=== PATIENT | female | born 1970 ===

== ENCOUNTER 2020-06-30 08:11 | Outpatient (REF) | payer OTHER, SELFPAY ==
[2020-06-30 09:25] LABS: Alanine Aminotransferase 13 U/L (0-31); Albumin Level 4.2 g/dL (3.5-5.0); Alkaline Phosphatase 79 U/L (39-117); Anion Gap 10 (12-20); Aspartate Amino Transferase 13 U/L (5-31); Bilirubin Total 0.5 mg/dL (0.0-1.0); Blood Urea Nitrogen 10 mg/dL (9-16); Calcium 8.8 mg/dL (8.4-10.2); Carbon Dioxide 27 mmol/L (22-29); Chloride 105 mmol/L (96-108); Cholesterol 139 mg/dL; Estimated Glomerular Filt Rate > 60; Glucose Random 149 mg/dL (60-115); HDL Cholesterol 52 mg/dL; LDL Cholesterol Calculated 65 mg/dl; Potassium 4.3 mmol/l (3.3-5.1); Sodium 138 mmol/L (135-145); Total Protein 6.7 g/dL (6.5-8.0); Triglycerides 110 mg/dL
[2020-06-30 09:49] LABS: Estimated Average Glucose 194 mg/dL; Hemoglobin A1c % 8.4 %
== END 2020-06-30 08:12 | disposition home or self-care (01) ==
LOC: HO.LAB 08:11
PROVIDERS: PCP Internal Medicine; Visit Provider Internal Medicine
DX: E11.65 Type 2 diabetes mellitus with hyperglycemia (principal); E78.00 Pure hypercholesterolemia, unspecified; R80.8 Other proteinuria
CPT/HCPCS: 80053; 80061; 83036

== ENCOUNTER 2020-09-29 06:58 | Outpatient (REF) | payer OTHER, SELFPAY ==
[2020-09-29 08:14] LABS: Estimated Average Glucose 163 mg/dL; Hemoglobin A1c % 7.3 %
[2020-09-29 08:42] LABS: Alanine Aminotransferase 11 U/L (0-31); Albumin Level 4.2 g/dL (3.5-5.0); Alkaline Phosphatase 71 U/L (39-117); Anion Gap 12 (12-20); Aspartate Amino Transferase 13 U/L (5-31); Bilirubin Total 0.7 mg/dL (0.0-1.0); Blood Urea Nitrogen 9 mg/dL (9-16); Calcium 9.1 mg/dL (8.4-10.2); Carbon Dioxide 28 mmol/L (22-29); Chloride 104 mmol/L (96-108); Estimated Glomerular Filt Rate > 60; Glucose Fasting 104 mg/dL (60-99); Potassium 4.1 mmol/l (3.3-5.1); Sodium 140 mmol/L (135-145); Total Protein 6.7 g/dL (6.5-8.0)
== END 2020-09-29 06:59 | disposition home or self-care (01) ==
LOC: HO.LAB 06:58
PROVIDERS: PCP Internal Medicine; Visit Provider Internal Medicine
DX: E11.65 Type 2 diabetes mellitus with hyperglycemia (principal); E78.00 Pure hypercholesterolemia, unspecified; R80.8 Other proteinuria
CPT/HCPCS: 36415; 80053; 83036

== ENCOUNTER → 2020-11-04 14:18 | Outpatient (BNVA) | payer OTHER, SELFPAY | PROVIDERS: PCP Internal Medicine; Visit Provider Nurse Practitioner ==

== ENCOUNTER 2021-01-22 09:38 | Outpatient (REF) | payer OTHER, SELFPAY ==
[2021-01-22 11:34] LABS: Alanine Aminotransferase 18 U/L (0-31); Albumin Level 4.1 g/dL (3.5-5.0); Alkaline Phosphatase 83 U/L (39-117); Anion Gap 12 (12-20); Aspartate Amino Transferase 14 U/L (5-31); Bilirubin Total 0.8 mg/dL (0.0-1.0); Blood Urea Nitrogen 12 mg/dL (9-16); Calcium 9.4 mg/dL (8.4-10.2); Carbon Dioxide 27 mmol/L (22-29); Chloride 104 mmol/L (96-108); Estimated Glomerular Filt Rate > 60; Glucose Random 118 mg/dL (60-115); Potassium 4.4 mmol/L (3.3-5.1); Sodium 139 mmol/L (135-145); Total Protein 6.8 g/dL (6.5-8.0)
[2021-01-22 11:40] LABS: Estimated Average Glucose 166 mg/dL; Hemoglobin A1c % 7.4 %
== END 2021-01-22 09:39 | disposition home or self-care (01) ==
LOC: HO.LAB 09:38
PROVIDERS: PCP Internal Medicine; Visit Provider Internal Medicine
DX: E11.9 Type 2 diabetes mellitus without complications (principal); E78.00 Pure hypercholesterolemia, unspecified; R80.8 Other proteinuria
CPT/HCPCS: 36415; 80053; 83036

== ENCOUNTER 2021-04-26 07:27 | Outpatient (REF) | payer OTHER, SELFPAY ==
[2021-04-26 09:13] LABS: MANUAL DIFF FLAG NO
[2021-04-26 09:18] LABS: Basophils Percent Auto 0.5 % (0-2); Eosinophils Absolute Auto 0.2 X10*3/uL (0.0-0.4); Eosinophils Percent Auto 2.3 % (0-4); Hematocrit 44.9 % (37-47); Hemoglobin 14.8 g/dl (12.0-16.0); Imm Gran Abs Auto 0.03 X10*3/uL (0.00-0.03); Imm Gran Pct Auto 0.4 % (0.0-0.4); Lymphocytes Percent Auto 54.1 % (20-40); Mean Corpuscular Volume 93.9 fL (80-98); Mean Platelet Volume 11.6 fL (9.4-12.3); Monocytes Absolute Auto 0.7 X10*3/uL (0.1-1.2); Neutrophils Absolute Auto 2.4 X10*3/uL (2.0-8.3); Neutrophils Percent Auto 32.7 % (45-73); Platelet Count 182 X10*3/uL (160-400); Red Blood Count 4.78 X10*6/uL (4.20-5.50); Red Cell Distribution Width 14.1 % (11.0-16.0); White Blood Count 7.4 X10*3/uL (4.8-10.8)
[2021-04-26 09:32] LABS: Estimated Average Glucose 151 mg/dL; Hemoglobin A1c % 6.9 %
[2021-04-26 09:38] LABS: Alanine Aminotransferase 15 U/L (0-31); Albumin Level 4.2 g/dL (3.5-5.0); Alkaline Phosphatase 84 U/L (39-117); Anion Gap 11 (12-20); Aspartate Amino Transferase 11 U/L (5-31); Bilirubin Total 0.4 mg/dL (0.0-1.0); Blood Urea Nitrogen 10 mg/dL (9-16); Carbon Dioxide 28 mmol/L (22-29); Chloride 104 mmol/L (96-108); Cholesterol 196 mg/dL; Estimated Glomerular Filt Rate > 60; Glucose Random 149 mg/dL (60-115); HDL Cholesterol 59 mg/dL; LDL Cholesterol Calculated 104 mg/dl; Potassium 4.2 mmol/L (3.3-5.1); Sodium 139 mmol/L (135-145); Total Protein 6.8 g/dL (6.5-8.0); Triglycerides 169 mg/dL
[2021-04-26 09:52] LABS: Creatinine Urine 65.95 mg/dL; Microalbumin Urine < 5.0 mg/L
== END 2021-04-26 07:28 | disposition home or self-care (01) ==
LOC: HO.LAB 07:27
PROVIDERS: PCP Internal Medicine; Visit Provider Internal Medicine
DX: E11.9 Type 2 diabetes mellitus without complications (principal); E78.00 Pure hypercholesterolemia, unspecified; I10 Essential (primary) hypertension; L29.2 Pruritus vulvae
CPT/HCPCS: 36415; 80053; 80061; 82043; 83036; 85025

== ENCOUNTER 2021-05-27 12:57 | Outpatient (REF) | payer OTHER, SELFPAY ==
--- NOTE | ~2021-05-27 | MM_ITS ---
EXAMINATION: MM SCREENING DIGITAL BREAST TOMOSYNTHESIS, BILATERAL CLINICAL INFORMATION: Screening. Asymptomatic. The lifetime risk of breast cancer based on the Tyrer-Cuzick Model is 8.0%. COMPARISON: Mammography: April 01, 2020 and studies dating back to December 16, 2016 TECHNIQUE: Digital breast tomosynthesis is performed in both the craniocaudal and mediolateral oblique views along with computer-aided detection (CAD). Synthesized 2D images are generated from the tomosynthesis. FINDINGS: There are scattered areas of fibroglandular density (ACR BI-RADS breast composition Category b). There are no significant masses, abnormal calcifications, or other abnormalities. MM/MM tomosynthesis screening BI IMPRESSION: There are no significant changes from prior study. ASSESSMENT: BI-RADS 1: Negative RECOMMENDATION: Routine annual mammography screening. This patient's information was entered into a reminder system with a target due date for their next mammogram.
== END 2021-05-27 12:58 | disposition home or self-care (01) ==
LOC: HO.MAMMO 12:57
PROVIDERS: Visit Provider Internal Medicine
DX: Z12.31 Encounter for screening mammogram for malignant neoplasm of breast (principal)
CPT/HCPCS: 77063; 77067

== ENCOUNTER → 2021-06-10 13:45 | Outpatient (BNVA) | payer OTHER, SELFPAY | PROVIDERS: PCP Internal Medicine; Visit Provider Nurse Practitioner | DX: Z12.11 Encounter for screening for malignant neoplasm of colon (principal); K21.9 Gastro-esophageal reflux disease without esophagitis; K59.00 Constipation, unspecified; R13.10 Dysphagia, unspecified; Z98.890 Other specified postprocedural states | CPT/HCPCS: 99212 ==

== ENCOUNTER 2021-07-27 07:55 | Outpatient (REF) | payer OTHER, SELFPAY ==
[2021-07-27 09:04] LABS: Estimated Average Glucose 157 mg/dL; Hemoglobin A1c % 7.1 %
[2021-07-27 09:24] LABS: Alanine Aminotransferase 19 U/L (0-31); Albumin Level 3.8 g/dL (3.5-5.0); Alkaline Phosphatase 86 U/L (39-117); Anion Gap 10 (12-20); Aspartate Amino Transferase 13 U/L (5-31); Bilirubin Total 0.3 mg/dL (0.0-1.0); Blood Urea Nitrogen 9 mg/dL (9-16); Calcium 8.8 mg/dL (8.4-10.2); Carbon Dioxide 26 mmol/L (22-29); Chloride 108 mmol/L (96-108); Cholesterol 121 mg/dL; Estimated Glomerular Filt Rate > 60; Glucose Random 168 mg/dL (60-115); HDL Cholesterol 45 mg/dL; LDL Cholesterol Calculated 54 mg/dl; Sodium 140 mmol/L (135-145); Total Protein 6.1 g/dL (6.5-8.0); Triglycerides 110 mg/dL
== END 2021-07-27 07:56 | disposition home or self-care (01) ==
LOC: HO.LAB 07:55
PROVIDERS: PCP Internal Medicine; Visit Provider Internal Medicine
DX: Z00.00 Encounter for general adult medical examination without abnormal findings (principal); E11.9 Type 2 diabetes mellitus without complications; E78.00 Pure hypercholesterolemia, unspecified; F32.89 Other specified depressive episodes
CPT/HCPCS: 36415; 80053; 80061; 83036

== ENCOUNTER 2021-08-12 06:41 | Day surgery (SDC) | payer OTHER, SELFPAY ==
[2021-08-06 09:09] VITALS: BMI 34.8
--- NOTE | 2021-08-11 10:02 | HO.ANESPROP2 ---
Documented by User: Yael Gamez NP 08/11/21 10:04 HPI - Anesthesia Eval Consult details Narrative: 50yo F for Colonoscopy PMFSH Active Problems Active Problems: All Active Problems (Updated 08/06/21 @ 09:09 by Rebekah Ott RN) GERD (gastroesophageal reflux disease) (Acute) Dysphagia (Acute) Constipation (Acute) Colon cancer screening (Acute) Hx of colonoscopy (Acute) Past Medical History Medical History Diabetes Elevated cholesterol GERD (gastroesophageal reflux disease) History of COVID-19 HTN (hypertension) Family History Family History Father HTN (hypertension) Mother Hypothyroidism Surgical History Surgical History History of esophagogastroduodenoscopy (EGD) Hx of section Hx of colonoscopy Hx of tooth extraction Hx of tubal ligation Social History Social History Alcohol intake: current Alcohol intake frequency: does not drink Patient Tobacco Use Status: Current everyday Tobacco user Cigarettes Per Day: 7 Years Smoked: 35 Smoked in Last 30 Days: Yes Use of substances other than those prescribed or required for medical reasons: No Are you DNR?: No Advance Directives: No Advance Directives Information Provided: Yes Meds Allergies Allergy/AdvReac Type Severity Reaction Status Date / Time No Known Allergies Allergy Verified 06/10/21 13:57 [No Known Allergies*] Home Medications Medication Instructions Recorded Confirmed Last Taken Type empagliflozin 25 mg tablet 25 mg PO QAM 11/04/20 11/04/20 Unknown History glipizide 10 mg tablet, extended 10 mg PO DAILY 11/04/20 11/04/20 Unknown History release 24 hr lisinopril 10 mg tablet 10 mg PO DAILY 11/04/20 11/04/20 Unknown History metformin 1,000 mg tablet 1,000 mg PO BID 11/04/20 11/04/20 Unknown History sitagliptin 100 mg tablet 100 mg PO DAILY 11/04/20 11/04/20 Unknown History aspirin 81 mg tablet,delayed 81 mg PO DAILY 06/10/21 08/12/21 08/09/21 History release atorvastatin 40 mg tablet 80 mg PO BEDTIME tab 06/10/21 Unknown History Exam Exam Date and Time: August 11, 2021 1002 Height,Weight and Vital Signs: Height 5 ft 4 in Weight 92.079 kg Pertinent Lab Results Pertinent Lab Results: Laboratory Tests 04/26/21 07/27/21 07:37 08:07 WBC 7.4 Hgb 14.8 Hct 44.9 Plt Count 182 Sodium 140 Potassium 4.0 Chloride 108 Carbon Dioxide 26 BUN 9 Creatinine 0.59 Assessment and Plan Assessment Anesthesia Assessment: Chart Reviewed Documented by User: Elijah Sánchez 08/12/21 08:16 PMFSH Active Problems Active Problems: All Active Problems (Updated 08/06/21 @ 09:09 by Rebekah Ott RN) GERD (gastroesophageal reflux disease) (Acute) Dysphagia (Acute) Constipation (Acute) Colon cancer screening (Acute) Hx of colonoscopy (Acute) DM Past Medical History Medical History Diabetes Elevated cholesterol GERD (gastroesophageal reflux disease) History of COVID-19 HTN (hypertension) Functional capacity: independent ambulation Family History Family History Father HTN (hypertension) Mother Hypothyroidism Family history of problems with anesthesia: No Surgical History Surgical History History of esophagogastroduodenoscopy (EGD) Hx of section Hx of colonoscopy Hx of tooth extraction Hx of tubal ligation History of Problems with Anesthesia: No Social History Social History Alcohol intake: current Alcohol intake frequency: does not drink Patient Tobacco Use Status: Current everyday Tobacco user Cigarettes Per Day: 7 Years Smoked: 35 Smoked in Last 30 Days: Yes Use of substances other than those prescribed or required for medical reasons: No Are you DNR?: No Advance Directives: No Advance Directives Information Provided: Yes Meds Allergies Allergy/AdvReac Type Severity Reaction Status Date / Time No Known Allergies Allergy Verified 06/10/21 13:57 [No Known Allergies*] Home Medications Medication Instructions Recorded Confirmed Last Taken Type empagliflozin 25 mg tablet 25 mg PO QAM 11/04/20 11/04/20 Unknown History glipizide 10 mg tablet, extended 10 mg PO DAILY 11/04/20 11/04/20 Unknown History release 24 hr lisinopril 10 mg tablet 10 mg PO DAILY 11/04/20 11/04/20 Unknown History metformin 1,000 mg tablet 1,000 mg PO BID 11/04/20 11/04/20 Unknown History sitagliptin 100 mg tablet 100 mg PO DAILY 11/04/20 11/04/20 Unknown History aspirin 81 mg tablet,delayed 81 mg PO DAILY 06/10/21 08/12/21 08/09/21 History release atorvastatin 40 mg tablet 80 mg PO BEDTIME tab 06/10/21 Unknown History Exam Airway Mallampati Class: III TM Dist: >3cm Neck ROM: Full Denture: Upper and Lower Heart: rrr Lungs: bl breath sounds Assessment and Plan Final Anesthetic Review Family History of Problems with Anesthesia: No History of Problems with Anesthesia: No NPO: No ASA Class: II Final Preanesthetic Review: Meds/Allgs Chart Reviewed Patient Risk: Intermediate Procedure Risk: Intermediate Anesthetic Plan Anesthetic Plan: MAC: Disposition: Standard PACU
[2021-08-12 07:22] LABS: Glucose, Whole Blood 134 mg/dL (60-115)
[2021-08-12 07:23] VITALS: BMI 35.6
[2021-08-12] MEDS: Lactated Ringers 1,000 ML 100 ML IVCONT (07:30)
--- NOTE | 2021-08-12 08:39 | MHC.SHP ---
Pre-Procedural Eval Section A Date of Service: 08/12/21 Section B Chief Complaint: Screening Relevant Family History (Specify if Yes): No Relevant Social History: Tobacco Use Present Medications: see Short Stay Collaborative assessment Medical History: Significant History (Diabetes Elevated cholesterol GERD (gastroesophageal reflux disease) History of COVID-19 HTN (hypertension)) History of Previous Operations: Relevant previous surgery/procedure and date(s) (History of esophagogastroduodenoscopy (EGD) Hx of section Hx of colonoscopy Hx of tooth extraction Hx of tubal ligation) Allergies: Allergies Allergy/AdvReac Type Severity Reaction Status Date / Time No Known Allergies Allergy Verified 06/10/21 13:57 [No Known Allergies*] Review of Systems Sugical H&P ROS: Negative: Constitution, Cardiovascular, Respiratory, Neurological, Psychiatric, Hem-Onc, Allergic/Immunologic, Gastrointestinal, Genitourinary, Musculoskeletal, Integumentary, Endocrine and Eyes/Ears/Nose/Throat Exam Surgical H&P Exam: Normal: HEENT, Normal: Heart, Normal: Lungs, Normal: Extremities, Normal: Abdomen, Normal: Skin and Normal: Neurological Plan Diagnosis/Plan: Unchanged I have reviewed the history and physical and performed a pertinent physical examination on my patient. No changes have occurred unless specified.
--- NOTE | 2021-08-12 09:08 | PM.OP ---
Brief Operative Note Date of Service: 08/12/21 Pre-op diagnosis: screening colonoscopy--prior poor prep Post-op diagnosis: same Procedure: see op note Surgeon: Elmira Bell MD Anesthesia: MAC Was an Director Of Resource Development used for this Procedure?: No Estimated blood loss (mL): 0 Condition: stable Disposition: PACU
--- NOTE | 2021-08-12 09:08 | W.PM.OPN ---
Operative Note Operative Note Date of Service: 08/12/21 Narrative: Operative Information Procedure Description: Colonoscopy COLONOSCOPY Instrument: Olympus variable stiffness adult scope 190L Colonoscopy Monitoring: Vital signs and clinical assessment, continuous EKG monitoring, Pulse oximetry, Carbon Dioxide monitoring and blood pressure monitoring were done throughout the procedure. Colon withdrawal time was 14 minutes. Procedure: The patient was placed in the left lateral decubitis position and pre-procedure medications were administered. After a digital rectal examination of the ano-rectum, the video colonoscope was inserted into the rectum and advanced through the colon to the cecum/TI. The colonoscope was slowly withdrawn in a retrograde panoramic fashion and the colon mucosa was carefully examined including a retroflexed view of the rectum. Findings and interventions are described below. Procedure Difficulty: easy Findings: Terminal Ileum-normal Cecum:normal Ascending Colon: normal Transverse Colon -normal Descending Colon:normal Sigmoid Colon: normal Rectum: Retroflexion with small internal hemorrhoids, grade I Anorectum - normal Colon preparation: [place] Bowel Preparation Scale Right colon; borderline 2 after extensive washing and cleaning Transverse colon: 2 Left colon; borderline 2 (0 = Unprepared colon segment with mucosa not seen due to solid stool that cannot be cleared. 1 = Portion of mucosa of the colon segment seen, but other areas of the colon segment not well seen due to staining, residual stool and/or opaque liquid. 2 = Minor amount of residual staining, small fragments of stool and/or opaque liquid, but mucosa of colon segment seen well. 3 = Entire mucosa of colon segment seen well with no residual staining, small fragments of stool or opaque liquid) Impression and Post Procedure Diagnosis: internal hemorrhoids Plan: High fiber diet leaflet Avoid straining at stool, epsom salts and sitz bath, anusol supps or cream Repeat Colonoscopy in 3-5 years due to fair prep or earlier if clinically indicated Above findings were reviewed with the patient and relevant handouts were provided if indicated.
[2021-08-12 09:50] VITALS: BP 97/59; PULSE 69; RESP 15; TEMP 36.7; O2SAT 99
[2021-08-12 10:05] VITALS: BP 105/45; PULSE 68; RESP 16; TEMP 36.8; O2SAT 99
== END 2021-08-12 10:44 | disposition home or self-care (01) ==
PROVIDERS: PCP Internal Medicine; Visit Provider Internal Medicine Gastroenterology
PROC: 0DJD8ZZ Inspection of Lower Intestinal Tract, Via Natural or Artificial Opening Endoscopic (ICD-10-PCS; CPT 45378; principal; 2021-08-12 09:20)
DX: Z12.11 Encounter for screening for malignant neoplasm of colon (principal); K64.0 First degree hemorrhoids; K59.00 Constipation, unspecified; K21.9 Gastro-esophageal reflux disease without esophagitis; I10 Essential (primary) hypertension; E78.00 Pure hypercholesterolemia, unspecified; E11.9 Type 2 diabetes mellitus without complications; Z79.84 Long term (current) use of oral hypoglycemic drugs; Z79.82 Long term (current) use of aspirin; Z79.899 Other long term (current) drug therapy; Z86.16 Personal history of COVID-19; F17.210 Nicotine dependence, cigarettes, uncomplicated
CPT/HCPCS: 45378; 82947

== ENCOUNTER 2021-09-20 13:00 | Outpatient (RCR) | payer OTHER, SELFPAY | END 2021-11-01 11:47 | disposition home or self-care (01) | LOC: HO.PT 13:00 | PROVIDERS: PCP Internal Medicine; Visit Provider Internal Medicine | DX: M23.92 Unspecified internal derangement of left knee (principal) | CPT/HCPCS: 97110; 97161 ==

== ENCOUNTER → 2021-09-30 16:09 | Outpatient (BNVA) | payer OTHER, SELFPAY | PROVIDERS: PCP Internal Medicine; Visit Provider Nurse Practitioner | DX: K21.9 Gastro-esophageal reflux disease without esophagitis (principal); K59.00 Constipation, unspecified; R13.10 Dysphagia, unspecified | CPT/HCPCS: 99212 ==

== ENCOUNTER 2021-11-02 08:05 | Outpatient (REF) | payer OTHER, SELFPAY ==
[2021-11-02 08:42] LABS: Estimated Average Glucose 166 mg/dL; Hemoglobin A1c % 7.4 %
[2021-11-02 09:02] LABS: Alanine Aminotransferase 13 U/L (0-31); Albumin Level 3.8 g/dL (3.5-5.0); Alkaline Phosphatase 89 U/L (39-117); Anion Gap 10 (12-20); Aspartate Amino Transferase 12 U/L (5-31); Bilirubin Total 0.4 mg/dL (0.0-1.0); Blood Urea Nitrogen 8 mg/dL (9-16); Calcium 9.1 mg/dL (8.4-10.2); Carbon Dioxide 28 mmol/L (22-29); Chloride 105 mmol/L (96-108); Estimated Glomerular Filt Rate > 60; Glucose Random 155 mg/dL (60-115); Potassium 4.3 mmol/L (3.3-5.1); Sodium 139 mmol/L (135-145); Total Protein 6.2 g/dL (6.5-8.0)
== END 2021-11-02 08:06 | disposition home or self-care (01) ==
LOC: HO.LAB 08:05
PROVIDERS: PCP Internal Medicine; Visit Provider Internal Medicine
DX: E11.9 Type 2 diabetes mellitus without complications (principal); I10 Essential (primary) hypertension; M23.92 Unspecified internal derangement of left knee; Z53.20 Procedure and treatment not carried out because of patient's decision for unspecified reasons
CPT/HCPCS: 36415; 80053; 83036

== ENCOUNTER → 2021-12-28 11:42 | Outpatient (BNVA) | payer OTHER, SELFPAY | PROVIDERS: PCP Internal Medicine; Referring Provider Internal Medicine; Visit Provider Nurse Practitioner | DX: K59.00 Constipation, unspecified (principal); K21.9 Gastro-esophageal reflux disease without esophagitis | CPT/HCPCS: 99212 ==

== ENCOUNTER 2022-01-20 16:59 | Emergency (ER) | payer OTHER, SELFPAY ==
[2022-01-20 17:53] VITALS: BP 134/64; PULSE 70; RESP 16; TEMP 36.6; O2SAT 100; BMI 37.0
[2022-01-20 18:17] LABS: Appearance Urine CLEAR; Color Urine YELLOW; Glucose Urine UA >=1000 MG/DL (NEG); Leukocyte Esterase Urine NEG (NEG); Nitrite Urine NEG (NEG); Urine Blood NEG (NEG); Urine Ketones NEG (NEG); Urine Protein NEG (NEG-TRACE)
[2022-01-20 18:26] LABS: Bacteria Urine TRACE /LPF; RBC Urine 0 /HPF (0); Squamous Epithelial Cell Urine TRACE /LPF; WBC Urine 0 /HPF (0-4)
--- NOTE | 2022-01-20 18:28 | ED_ITS ---
HPI - Back Pain/Injury General Chief Complaint: Back Pain/Injury Stated Complaint: back pain Time Seen by Provider: 01/20/22 18:26 Source: patient Mode of arrival: ambulatory Limitations: no limitations History of Present Illness HPI Narrative: Patient presents to the emergency department for evaluation of diffuse lower back pain for 1 and half weeks. 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 Pain radiates to the midback, denies radiation to the legs. Pain is currently 8/10. She has tried taking Tylenol without significant improvement. Denies fevers, chills, burning with micturition, urinary frequency, urgency, hesitancy, bladder or bowel dysfunction, numbness or tingling of the perineum or bilateral legs. Denies any recent surgical procedures, any known immune compromising conditions, personal history of cancer, or IV drug usage. MD elicited complaint: back pain Onset (ago): week(s) Timing: intermittent Severity: severe Pain scale (0-10): 8 Similar Symptoms Previously: No Quality: aching and spasming Location: lumbar spine Exacerbating factors: movement Associated symptoms: denies other symptoms Treatments prior to arrival: acetaminophen Related Data Home Medications Medication Instructions Recorded Confirmed empagliflozin 25 mg tablet 25 mg PO QAM 11/04/20 11/04/20 glipizide 10 mg tablet, extended 10 mg PO DAILY 11/04/20 11/04/20 release 24 hr lisinopril 10 mg tablet 10 mg PO DAILY 11/04/20 11/04/20 metformin 1,000 mg tablet 1,000 mg PO BID 11/04/20 11/04/20 sitagliptin 100 mg tablet 100 mg PO DAILY 11/04/20 11/04/20 aspirin 81 mg tablet,delayed 81 mg PO DAILY 06/10/21 08/12/21 release atorvastatin 40 mg tablet 80 mg PO BEDTIME tab 06/10/21 Previous Rx's Medication Instructions Recorded magnesium citrate 150 ml PO ONCE #300 ml 06/10/21 peg 3350-electrolytes 236 240 ml PO Q10M 1 Days #4000 ml 06/10/21 gram-22.74 gram-6.74 gram-5.86 gram solution (Golytely) sennosides 8.6 mg capsule (senna) 17.2 mg PO BEDTIME 30 Days #60 cap 09/30/21 famotidine 40 mg tablet 40 mg PO BID #180 tab 12/09/21 bisacodyl 5 mg tablet,delayed 10 mg PO BEDTIME 30 Days #60 tab 12/28/21 release (Dulcolax (bisacodyl)) cyclobenzaprine 5 mg tablet 5 mg PO TID PRN #14 tab 01/20/22 naproxen 500 mg tablet 500 mg PO BID PRN #10 tab 01/20/22 Allergies Allergy/AdvReac Type Severity Reaction Status Date / Time No Known Allergies Allergy Verified 12/28/21 11:54 [No Known Allergies*] Review of Systems Review of Systems: Constitutional: No weight loss, fever, chills, weakness or fatigue. HEENT: No visual loss, blurred vision, double vision. No hearing loss, sneezing, congestion, runny nose or sore throat. Skin: No rash or itching. Cardiovascular: No chest pain, chest pressure or chest discomfort. No palpitations or pedal edema. Respiratory: No shortness of breath, cough or sputum production. Gastrointestinal: No anorexia, nausea, vomiting or diarrhea. No abdominal pain or blood in stool. Genitourinary: No burning micturition. No urinary frequency or incontinence. Neurologic: No headache, dizziness, syncope, unilateral weakness, ataxia, numbness or tingling in the extremities. No change in bowel or bladder control. Musculoskeletal: + Back pain as noted in HPI. No joint pain or stiffness. Endocrine: No polyuria or polydipsia. Yes all other systems are reviewed and are negative PMFSH Past Medical History Attestation statement: The following information was validated with the patient. Source: old records reviewed Medical History Diabetes Elevated cholesterol GERD (gastroesophageal reflux disease) History of COVID-19 HTN (hypertension) Surgical History History of esophagogastroduodenoscopy (EGD) Hx of section Hx of colonoscopy Hx of tooth extraction Hx of tubal ligation Family History Family History Father HTN (hypertension) Mother Hypothyroidism Social History Social History Alcohol intake: current Alcohol intake frequency: does not drink Patient Tobacco Use Status: Current everyday Tobacco user Cigarettes Per Day: 7 Years Smoked: 35 Advance Directives: No Advance Directives Information Provided: Yes Physical Exam Vital Signs: Vital Signs: Last Vital Signs Temp 98 F 01/20/22 17:53 Pulse 70 01/20/22 17:53 Resp 16 01/20/22 17:53 BP 134/64 01/20/22 17:53 Pulse Ox 100 01/20/22 17:53 BMI result Body Mass Index 37.0 Vital signs have been reviewed as normal and appeared to be correct. Blood pressure normal.? Heart rate normal.? Respiration rate normal. Temperature normal.? Oxygen saturation normal. Appearance: Alert.?Oriented to person, place and time. No acute distress.?Normal affect. Eyes: Pupils equal, round and reactive to light.? ENT: Pharynx normal.?? Neck: Normal inspection.? Neck supple.?? CVS: Heart sounds normal. Normal heart rate and rhythm.? Pulses normal; bilateral radial pulses 2+, bilateral posterior tibial/dorsalis pedis pulses 2+.? Respiratory: No respiratory distress.? Lung sounds clear to auscultation bilaterally?? Abdomen: Soft and non-tender. Normoactive bowel sounds. No pulsatile mass.?? Skin: Skin warm and dry.? Normal skin color.? Normal skin turgor.?? Extremities: No lower extremity edema.? No calf ttp? Back: + moderateparaspinal muscular tenderness from lumbar region to coccyx. No CVA tenderness. No midline spinal tenderness, step-off's, or deformity. Full ROM intact in bilateral lower extremities. Straight leg test positive on left and positive on right. No rashes, lesions, areas of induration or fluctuance, or signs of infection noted. Neuro: Moves all extremities spontaneously. 5/5 strength in hip extension/flexion, abduction, adduction. Sensation to light touch intact bilaterally. Patellar and Achilles reflex 2+ bilaterally. No ataxia, gait normal and steady.. No focal neuro deficits. Course Course Course Narrative: Patient is a 51-year-old female with a past medical history of type 2 diabetes, hypercholesterolemia, GERD, hypertension presenting to emergency department for evaluation of acute lower back pain. Urinalysis without signs of infection or microscopic hematuria. Pain is most consistent with muscular pain, although cannot completely exclude herniated disc. On neurological exam there are no de ficits. Not consistent with spinal fracture, spinal infection, epidural abscess, AAA, epidural abscess, or dissection. No high risk past medical history including incontinence, fever, immunosuppression, recent surgery or lumbar puncture, coagulopathy, significant trauma, recent unintentional weight loss, pulsatile mass, history of cancer, history of TB, history of IV drug use that would warrant MRI or CT. Not consistent with ectopic , pyelonephritis, urinary tract infection, renal calculi, pelvic infection, appendicitis, diverticulitis. On exam no concern for cauda equina syndrome. No imaging is currently indicated at this time. Patient received ketorolac and Flexeril while in the emergency department, had a ride home. Discussed plan of care for discharge home with new prescription for naproxen, and Flexeril, advised gentle stretching exercises of the low back, discussed reasons to return back to the emergency department, and follow-up with primary care provider. patient agreed with plan, ambulatory with steady gait in the emergency department, discharged home stable condition. MDM - Back Pain/Injury Medical Records Attestation: I reviewed the patient's medical records. Lab Data Attestation: I reviewed the patient's lab results. Labs: Lab Results 01/20/22 Range/Units 18:09 Urine Color YELLOW Urine Appearance CLEAR Urine pH 7.0 (5.0-8.0) Ur Specific [place] 1.020 (1.005-1.025) Urine Protein NEG (NEG-TRACE) MG/DL Urine Glucose (UA) >=1000 H (NEG) MG/DL Urine Ketones NEG (NEG) MG/DL Urine Blood NEG (NEG) Urine Nitrite NEG (NEG) Ur Leukocyte Esterase NEG (NEG) Urine RBC 0 (0) /HPF Urine WBC 0 (0-4) /HPF Ur Squamous Epith Cells TRACE /LPF Urine Bacteria TRACE /LPF Discharge Plan Discharge Clinical Impression: Strain of lumbar region Patient Disposition: Home, Self-Care Instructions: Low Back Strain (ED), Lower Back Exercises (ED) Additional Instructions: Please take naproxen twice daily for pain, do not take additional [id number] NSAID such as a ibuprofen/Motrin or Aleve. If the naproxen is not alleviating your pain you may trial the use of Flexeril, this is a muscle relaxer that may make you drowsy, you should not drive/operate machinery/drink alcohol for 8 hours after taking this medication. Please contact your primary care provider to schedule a follow-up visit within 1 week. Return to emergency department with any new or worsening symptoms or concerns. Prescriptions: New cyclobenzaprine 5 mg tablet 5 mg PO TID PRN (Reason: muscle spasm) Qty: 14 0RF naproxen 500 mg tablet 500 mg PO BID PRN (Reason: pain) Qty: 10 0RF No Action famotidine 40 mg tablet 40 mg PO BID Qty: 180 2RF Januvia 100 mg tablet 100 mg PO DAILY 0RF metformin 1,000 mg tablet 1,000 mg PO BID 0RF glipizide 10 mg tablet extended release 24hr 10 mg PO DAILY 0RF Jardiance 25 mg tablet 25 mg PO QAM 0RF lisinopril 10 mg tablet 10 mg PO DAILY 0RF atorvastatin 40 mg tablet 80 mg PO BEDTIME 0RF aspirin 81 mg tablet,delayed release (DR/EC) 81 mg PO DAILY 0RF magnesium citrate Solution 150 ml PO ONCE Qty: 300 0RF peg 3350-electrolytes [Golytely] 236-22.74-6.74 -5.86 gram recon soln 240 ml PO Q10M 1 Days Qty: 4000 0RF Rx Instructions: until fecal effluent is clear; do not exceed a total volume of 2,000 mL senna 8.6 mg capsule 17.2 mg PO BEDTIME 30 Days Qty: 60 3RF bisacodyl [Dulcolax (bisacodyl)] 5 mg tablet,delayed release (DR/EC) 10 mg PO BEDTIME 30 Days Qty: 60 6RF Interventions: ED Discharge Assessment Last Done: 01/20/22 20:42 Discharge Date/Time: 01/20/22 20:46
[2022-01-20] MEDS: Cyclobenzaprine HCl 5 MG TABLET PO (19:58)
[2022-01-20] MEDS: Ketorolac Tromethamine 60 MG/2 ML VIAL IM (19:59)
== END 2022-01-20 20:46 | disposition home or self-care (01) ==
PROVIDERS: Emergency Provider Internal Medicine; PCP Internal Medicine
DX: M54.50 Low back pain, unspecified (principal); F17.210 Nicotine dependence, cigarettes, uncomplicated; Z71.6 Tobacco abuse counseling; Z79.899 Other long term (current) drug therapy
CPT/HCPCS: 81001; 96372; 99283; 99284; J1885

== ENCOUNTER 2022-02-04 09:03 | Outpatient (REF) | payer OTHER, SELFPAY ==
[2022-02-04 10:05] LABS: Estimated Average Glucose 174 mg/dL; Hemoglobin A1c % 7.7 %
[2022-02-04 10:23] LABS: Alanine Aminotransferase 26 U/L (0-31); Albumin Level 4.1 g/dL (3.5-5.0); Alkaline Phosphatase 101 U/L (39-117); Anion Gap 12 (12-20); Aspartate Amino Transferase 18 U/L (5-31); Bilirubin Total 0.4 mg/dL (0.0-1.0); Blood Urea Nitrogen 9 mg/dL (9-16); Calcium 9.3 mg/dL (8.4-10.2); Carbon Dioxide 26 mmol/L (22-29); Chloride 105 mmol/L (96-108); Estimated Glomerular Filt Rate > 60; Glucose Random 170 mg/dL (60-115); Potassium 4.7 mmol/L (3.3-5.1); Sodium 138 mmol/L (135-145); Total Protein 6.9 g/dL (6.5-8.0)
== END 2022-02-04 09:04 | disposition home or self-care (01) ==
LOC: HO.LAB 09:03
PROVIDERS: PCP Internal Medicine; Visit Provider Internal Medicine
DX: E11.65 Type 2 diabetes mellitus with hyperglycemia (principal); E78.00 Pure hypercholesterolemia, unspecified; I10 Essential (primary) hypertension
CPT/HCPCS: 36415; 80053; 83036

== ENCOUNTER 2022-05-10 08:12 | Outpatient (REF) | payer OTHER, SELFPAY ==
[2022-05-10 08:22] LABS: MANUAL DIFF FLAG NO
[2022-05-10 08:50] LABS: Basophils Percent Auto 0.4 % (0-2); Eosinophils Absolute Auto 0.2 X10*3/uL (0.0-0.4); Eosinophils Percent Auto 2.3 % (0-4); Hematocrit 46.2 % (37.0-47.0); Hemoglobin 15.1 g/dl (12.0-16.0); Imm Gran Abs Auto 0.04 X10*3/uL (0.00-0.03); Imm Gran Pct Auto 0.5 % (0.0-0.4); Lymphocytes Absolute Auto 3.5 X10*3/uL (1.2-4.9); Lymphocytes Percent Auto 42.9 % (20-40); Mean Corpuscular HGB Conc 32.7 g/dl (31.0-35.0); Mean Corpuscular Hemoglobin 30.1 pg (27.0-33.0); Mean Corpuscular Volume 92.2 fL (80.0-98.0); Mean Platelet Volume 11.5 fL (9.4-12.3); Monocytes Absolute Auto 0.7 X10*3/uL (0.1-1.2); Monocytes Percent Auto 8.5 % (2-11); Neutrophils Absolute Auto 3.7 x10*3/uL (2.0-8.3); Neutrophils Percent Auto 45.4 % (45-73); Platelet Count 163 X10*3/uL (160-400); Red Blood Count 5.01 X10*6/uL (4.20-5.50); Red Cell Distribution Width 13.9 % (11.0-16.0); White Blood Count 8.1 X10*3/uL (4.8-10.8)
[2022-05-10 09:21] LABS: Microalbumin Urine < 5.0 mg/L
[2022-05-10 09:24] LABS: Estimated Average Glucose 197 mg/dL; Hemoglobin A1c % 8.5 %
[2022-05-10 09:38] LABS: Alanine Aminotransferase 19 U/L (0-31); Albumin Level 4.2 g/dL (3.5-5.0); Alkaline Phosphatase 106 U/L (39-117); Anion Gap 16 (12-20); Aspartate Amino Transferase 15 U/L (5-31); Bilirubin Total 0.5 mg/dL (0.0-1.0); Blood Urea Nitrogen 9 mg/dL (9-16); Calcium 9.4 mg/dL (8.4-10.2); Carbon Dioxide 25 mmol/L (22-29); Chloride 103 mmol/L (96-108); Cholesterol 131 mg/dL; Estimated Glomerular Filt Rate > 60; Glucose Random 185 mg/dL (60-115); HDL Cholesterol 56 mg/dL; LDL Cholesterol Calculated 56 mg/dl; Potassium 3.9 mmol/L (3.3-5.1); Sodium 140 mmol/L (135-145); Total Protein 6.9 g/dL (6.5-8.0); Triglycerides 95 mg/dL
[2022-05-10 09:40] LABS: Thyroid Stimulating Hormone 1.85 uIU/mL (0.32-4.0)
[2022-05-10 09:54] LABS: Vitamin B12 280 pg/mL (200-900)
== END 2022-05-10 08:13 | disposition home or self-care (01) ==
LOC: HO.LAB 08:12
PROVIDERS: PCP Internal Medicine; Visit Provider Internal Medicine
DX: E11.9 Type 2 diabetes mellitus without complications (principal); E78.00 Pure hypercholesterolemia, unspecified; I10 Essential (primary) hypertension; L84 Corns and callosities
CPT/HCPCS: 36415; 80053; 80061; 82043; 82607; 83036; 84443; 85025

== ENCOUNTER 2022-06-28 11:20 | Outpatient (REF) | payer OTHER, SELFPAY ==
--- NOTE | ~2022-06-28 | MM_ITS ---
EXAMINATION: MM SCREENING DIGITAL BREAST TOMOSYNTHESIS, BILATERAL CLINICAL INFORMATION: Screening. Asymptomatic. The lifetime risk of breast cancer based on the Tyrer-Cuzick Model is 8.8%. COMPARISON: Mammography: May 27, 2021 and studies dating back to October 28, 2015 TECHNIQUE: Digital breast tomosynthesis is performed in both the craniocaudal and mediolateral oblique views along with computer-aided detection (CAD). Synthesized 2D images are generated from the tomosynthesis. FINDINGS: The breasts are almost entirely fatty (ACR BI-RADS breast composition Category a). There are no significant masses, abnormal calcifications, or other abnormalities. MM/MM tomosynthesis screening BI IMPRESSION: No significant changes from prior exam. ASSESSMENT: BI-RADS 1: Negative RECOMMENDATION: Routine annual mammography screening. This patient's information was entered into a reminder system with a target due date for their next mammogram.
== END 2022-06-28 11:21 | disposition home or self-care (01) ==
LOC: HO.MAMMO 11:20
PROVIDERS: PCP Internal Medicine; Visit Provider Internal Medicine
DX: Z12.31 Encounter for screening mammogram for malignant neoplasm of breast (principal)
CPT/HCPCS: 77063; 77067

== ENCOUNTER → 2022-07-19 11:19 | Outpatient (BNVA) | payer OTHER, SELFPAY | PROVIDERS: PCP Internal Medicine; Visit Provider Nurse Practitioner | DX: K21.9 Gastro-esophageal reflux disease without esophagitis (principal); K59.00 Constipation, unspecified | CPT/HCPCS: 99212 ==

== ENCOUNTER 2022-09-06 14:33 | Emergency (ER) | payer OTHER, SELFPAY ==
--- NOTE | ~2022-09-06 | XR_ITS ---
EXAMINATION: RIGHT SHOULDER, RIGHT HUMERUS CLINICAL INFORMATION: Arm pain COMPARISON: None TECHNIQUE: 2 views right humerus, 3 views right shoulder FINDINGS: There is evidence of an old healed right clavicular fracture. Some subchondral cyst formation is seen in the region of the greater tuberosity which can be seen with rotator cuff disease. A bone island is present in the right humeral head. The glenohumeral joint appears normal. Visualized elbow joint appears normal. No fractures or dislocations. XR/XR shoulder RT min 2V IMPRESSION: 1. No evidence of an acute osseous injury. 2. Old healed right clavicular fracture. 3. Question of rotator cuff disease.
--- NOTE | ~2022-09-06 | XR_ITS ---
EXAMINATION: RIGHT SHOULDER, RIGHT HUMERUS CLINICAL INFORMATION: Arm pain COMPARISON: None TECHNIQUE: 2 views right humerus, 3 views right shoulder FINDINGS: There is evidence of an old healed right clavicular fracture. Some subchondral cyst formation is seen in the region of the greater tuberosity which can be seen with rotator cuff disease. A bone island is present in the right humeral head. The glenohumeral joint appears normal. Visualized elbow joint appears normal. No fractures or dislocations. XR/XR humerus RT IMPRESSION: 1. No evidence of an acute osseous injury. 2. Old healed right clavicular fracture. 3. Question of rotator cuff disease.
--- NOTE | 2022-09-06 16:34 | ED_ITS ---
HPI - Extremity Injury (Upper) General Chief Complaint: Extremity Problem <SHAHID Tobin Last Filed: 09/06/22 16:40> Stated Complaint: R arm pain <SHAHID Tobin Last Filed: 09/06/22 16:40> Time Seen by Provider: 09/06/22 18:44 <SHAHID Tobin Last Filed: 09/06/22 16:40> Source: patient <SHAHID Castillo Last Filed: 09/06/22 20:36> Mode of arrival: ambulatory <SHAHID Castillo Last Filed: 09/06/22 20:36> Limitations: no limitations <SHAHID Castillo Last Filed: 09/06/22 20:36> History of Present Illness HPI narrative: This is a 51-year-old female history of GERD, dysphagia, DM, HTN, constipation presenting to the emergency department with complaints of 3 days of neck pain that radiates into her right shoulder, patient tells me she feels like her neck is stiff, and when she moves her neck she gets a radiating pain into her right shoulder and right arm, with intermittent tingling. Patient denies any trauma to the neck. She tells me she may have slept wrong on it. She tells me it is very uncomfortable. She tells me she has been taking acetaminophen and using lidocaine patches with little to no relief. Denies chest pain, shortness of breath, nausea, vomiting, abdominal pain, back pain, lower extremity swelli ng, headache, vision changes, dizziness. <SHAHID Castillo Last Filed: 09/06/22 20:36> Related Data Home Medications: Home Medications Medication Instructions Recorded Confirmed empagliflozin 25 mg tablet 25 mg PO QAM 11/04/20 11/04/20 lisinopril 10 mg tablet 10 mg PO DAILY 11/04/20 11/04/20 metformin 1,000 mg tablet 1,000 mg PO BID 11/04/20 11/04/20 sitagliptin phosphate 100 mg tablet 100 mg PO DAILY 11/04/20 11/04/20 aspirin 81 mg tablet,delayed 81 mg PO DAILY 06/10/21 08/12/21 release atorvastatin 80 mg tablet 80 mg PO BEDTIME 07/19/22 glipizide 5 mg tablet, extended 5 mg PO DAILY 07/19/22 release 24 hr Previous Rx's Medication Instructions Recorded magnesium citrate 150 ml PO ONCE #300 mL 06/10/21 cyclobenzaprine 5 mg tablet 5 mg PO TID PRN muscle spasm #14 01/20/22 tabs naproxen 500 mg tablet 500 mg PO BID PRN pain #10 tabs 01/20/22 bisacodyl 5 mg tablet,delayed 10 mg PO BEDTIME 30 days #60 tabs 07/19/22 release (Dulcolax (bisacodyl)) famotidine 40 mg tablet 40 mg PO BID #180 tabs 07/19/22 diazepam 2 mg tablet (Valium) 2 mg PO BID PRN muscle spasm #8 09/06/22 tabs lidocaine 5 % topical patch 1 patch topical DAILY PRN pain #15 09/06/22 ea <SHAHID Tobin Last Filed: 09/06/22 16:40> Allergies/Adverse Reactions: Allergies Allergy/AdvReac Type Severity Reaction Status Date / Time No Known Allergies Allergy Verified 07/19/22 11:34 [No Known Allergies*] <SHAHID Tobin Last Filed: 09/06/22 16:40> Review of Systems Review of Systems: Constitutional : No Weight loss, No Fever, No Chills, No Fatigue, No Malaise ENT/Mouth : No sore throat, No Rhinorrhea Eyes: No Eye Pain, No Swelling, No Redness Cardiovascular : No Chest Pain, No SOB, No Dyspnea on Exertion, No Orthopnea, No Edema, No Palpitations Respiratory : No Cough, No Sputum, No Wheezing Gastrointestinal : No Nausea, No Vomiting, No Diarrhea, No Constipation, No abdominal Pain, No Hematochezia, No Melena Genitourinary : No Dysuria, No Urinary Frequency, No Hematuria, Musculoskeletal : + joint pain, No Myalgias, No Joint Swelling Skin : No Skin Lesions, No rash Neuro : No Weakness, No Numbness, No Dizziness, No Headache Psych : No Anxiety/Panic, No Depression All other systems reviewed and are negative <SHAHID Castillo Last Filed: 09/06/22 20:36> Yes all other systems are reviewed and are negative <SHAHID Castillo Last Filed: 09/06/22 20:36> [facility] Past Medical History Attestation statement: The following information was validated with the patient. <SHAHID Castillo - Last Filed: 09/06/22 20:36> Source: old records reviewed and nursing notes reviewed <SHAHID Castillo - Last Filed: 09/06/22 20:36> Medical History: Medical History (Updated 09/06/22 @ 19:44 by SHAHID Castillo) Diabetes Elevated cholesterol GERD (gastroesophageal reflux disease) History of COVID-19 HTN (hypertension) <SHAHID Tobin - Last Filed: 09/06/22 16:40> Surgical History: Surgical History History of esophagogastroduodenoscopy (EGD) Hx of section Hx of colonoscopy Hx of tooth extraction Hx of tubal ligation <SHAHID Tobin - Last Filed: 09/06/22 16:40> Family History Family History: Family History Father HTN (hypertension) Mother Hypothyroidism <SHAHID Tobin - Last Filed: 09/06/22 16:40> Social History Social History: Social History Alcohol intake: never Patient Tobacco Use Status: Current everyday Tobacco user Cigarettes Per Day: 7 Years Smoked: 35 Smoked in Last 30 Days: Yes Use of substances other than those prescribed or required for medical reasons: No Advance Directives: No Advance Directives Information Provided: No Patient : No <SHAHID Tobin - Last Filed: 09/06/22 16:40> Physical Exam Vital Signs: Vital Signs: Last Vital Signs Temp 98.1 F 09/06/22 16:35 Pulse 83 09/06/22 18:49 Resp 18 09/06/22 16:35 BP 186/60 H 09/06/22 18:49 Pulse Ox 94 09/06/22 18:49 O2 Del Method 09/06/22 18:49 BMI result Body Mass Index 36.0 <SHAHID Tobin - Last Filed: 09/06/22 16:40> Vital Signs: Last Vital Signs Temp 98.1 F 09/06/22 16:35 Pulse 83 09/06/22 18:49 Resp 18 09/06/22 16:35 BP 186/60 H 09/06/22 18:49 Pulse Ox 94 09/06/22 18:49 O2 Del Method 09/06/22 18:49 BMI result Body Mass Index 36.0 vss <SHAHID Castillo - Last Filed: 09/06/22 20:36> Appearance: Alert.? Oriented X3.? No acute distress.? Head: Normocephalic, atraumatic, no step-offs or deformities Eyes: Pupils equal, round and reactive to light.? ENT: Pharynx normal.? Neck: Normal inspection.? Neck supple.?+ R. sided paraspinous cervical t enderness and tenderness to R. trapezius region. No midline tenderness. Full ROM, no stepoffs or deformities. CVS: Normal heart rate and rhythm.? Pulses normal.? Respiratory: No respiratory distress.? Breath sounds normal.? Abdomen: Soft and nontender.? Skin: Skin warm and dry.? Normal skin color.? Normal skin turgor.? Extremities: No lower extremity edema.? No calf ttp. 5/5 strength to bilateral upper and lower extremities Limited range of motion to right shoulder secondary to pain, pain worse with overhead movements. 2+ radial pulses equal bilateral. No wrist drop. Normal sensation to bilateral upper extremities. Normal capillary refill less than 2 seconds bilateral upper extremities. Neuro: Oriented X 3.? No motor deficit.? No sensory deficit. CN 2-12 intact <SHAHID Castillo - Last Filed: 09/06/22 20:36> Course Course Course Narrative: RME--51-year-old female with past medical history of diabetes, HLD, GERD, HTN presenting to the ED complaining of atraumatic RUE pain x3 days. Admits pain radiates from R shoulder down arm and to neck. Reports assoc numbness/tingling and mild WALTER. R shoulder with noted tenderness on exam and decreased passive ROM secondary to pain. No appreciable deformity. Neurovascularly intact. No midline cervical spinous tenderness EKG and x-rays ordered in triage <SHAHID Tobin - Last Filed: 09/06/22 16:40> Reevaluation(s) Reevaluation #1: Unremarkable EKG. X-ray of right shoulder and humerus with no evidence of acute osseous injury, old healed right clavicular fracture and question of rotator cuff disease. Raising suspicion for possible rotator cuff tendinitis on top of cervical radiculopathy. Patient will be discharged home on Valium and Lidoderm patches. Will have her follow-up with the orthopedic team. Educated patient on diagnosis and treatment plan, answered all question, patient verbalizes understanding. At this time patient will be discharged home, advised to return with new or worsening symptoms. Educated on worrisome signs and symptoms and when to return. At this time I feel comfortable discharge home. <SHAHID Castillo - Last Filed: 09/06/22 20:36> Time: 19:51 <SHAHID Castillo - Last Filed: 09/06/22 20:36> Medications Administered Discontinued Medications Generic Name Dose Route Start Last Admin Trade Name Freq PRN Reason Stop Dose Admin Diazepam 2 mg 09/06/22 16:37 09/06/22 18:53 Diazepam 2 Mg Tablet PO 09/06/22 16:38 2 mg ONCE ONE Administration Ketorolac Tromethamine 30 mg 09/06/22 19:53 09/06/22 20:09 Ketorolac Tromethamine 15 Mg/Ml Vial IM 09/06/22 19:54 30 mg ONCE ONE Administration Lidocaine 1 patch 09/06/22 16:37 09/06/22 18:53 Lidocaine 4 % Patch Adh..Patch TRANSDERMA 09/06/22 16:38 1 patch ONCE ONE Administration Protocol <SHAHID Tobin - Last Filed: 09/06/22 16:40> Medications Administered Discontinued Medications Generic Name Dose Route Start Last Admin Trade Name Freq PRN Reason Stop Dose Admin Diazepam 2 mg 09/06/22 16:37 09/06/22 18:53 Diazepam 2 Mg Tablet PO 09/06/22 16:38 2 mg ONCE ONE Administration Ketorolac Tromethamine 30 mg 09/06/22 19:53 09/06/22 20:09 Ketorolac Tromethamine 15 Mg/Ml Vial IM 09/06/22 19:54 30 mg ONCE ONE Administration Lidocaine 1 patch 09/06/22 16:37 09/06/22 18:53 Lidocaine 4 % Patch Adh..Patch TRANSDERMA 09/06/22 16:38 1 patch ONCE ONE Administration Protocol <SHAHID Castillo Last Filed: 09/06/22 20:36> Medical Decision Making Medical Decision Making [facility] Narrative: 1937 51-year-old female presents with atraumatic neck pain radiating into right upper extremity. Also reporting right shoulder pain atraumatic. Patient denies chest pain, shortness of breath. Physical exam Normal inspection.? Neck supple.?+ R. sided paraspinous cervical tenderness and tenderness to R. trapezius region. No midline tenderness. Full ROM, no stepoffs or deformities. Limited range of motion to right shoulder secondary to pain, pain worse with overhead movements. 2+ radial pulses equal bilateral. No wrist drop. Normal sensation to bilateral upper extremities. Normal capillary refill less than 2 seconds bilateral upper extremities. Likely cervical radiculopathy with possible rotator cuff tendantitis. Unlikely stroke, AL, meningitis, cervical fracture/dislocation/traumatic subluxation, no signs of cord compression. Imaging ordered from triage. As well as an EKG which showed sinus rhythm with fusion complexes and right atrial enlargement, no ST elevations or inversions concerning for ischemia. Patient not complaining of chest pain or shortness of breath therefore low suspicion for ACS. <SHAHID Castillo Last Filed: 09/06/22 20:36> Differential Diagnosis Differential Diagnoses: The differential diagnosis associated with the presentation includes <SHAHID Castillo Last Filed: 09/06/22 20:36> Likely cervical radiculopathy with possible rotator cuff tendantitis. Unlikely stroke, AL, meningitis, cervical fracture/dislocation/traumatic subluxation, no signs of cord compression. <SHAHID Castillo Last Filed: 09/06/22 20:36> Admission/Observation Consideration of admission/observation: Escalation of care including admission/observation considered <SHAHID Castillo Last Filed: 09/06/22 20:36> Not indicated. <SHAHID Castillo Last Filed: 09/06/22 20:36> Critical Care Time Critical Care Time Critical Care Time: No <SHAHID Castillo - Last Filed: 09/06/22 20:36> Discharge Plan Discharge Clinical Impression: Cervical radiculopathy, Pain in right shoulder <SHAHID Tobin Last Filed: 09/06/22 16:40> Patient Disposition: Home, Self-Care <SHAHID Tobin Last Filed: 09/06/22 16:40> Additional Instructions: Take your medications as prescribed. If you were prescribed antibiotics today, it is important that you take your medication to their entirety, do not skip any doses, do not finish them early. Follow-up with your primary care provider this week. Follow-up with the orthopedic team if pain persists. Return to the emergency department with new or worsening symptoms. Such as fevers, chills, chest pain, shortness of breath, nausea, vomiting, dizziness, headache, vision changes, lethargy In case of emergency call 911 There is some concerns that you may have a rotator cuff injury please see ortho for this pain. X-ray results below. Valium has been sent to your pharmacy do not take this while driving as a can make you drowsy or please do not take this while operating machinery. Do not mix this medication with alcohol or any other benzodiazepines. Do not share this medication with anyone else. XR/XR shoulder RT min 2V IMPRESSION: 1. No evidence of an acute osseous injury. 2. Old healed right clavicular fracture. 3. Question of rotator cuff disease. XR/XR humerus RT IMPRESSION: 1.? No evidence of an acute osseous injury. 2.? Old healed right clavicular fracture. 3.? Question of rotator cuff disease. ? <SHAHID Tobin - Last Filed: 09/06/22 16:40> Prescriptions: New diazepam [Valium] 2 mg tablet 2 mg PO BID PRN (Reason: muscle spasm) Qty: 8 0RF lidocaine 5 % adhesive patch,medicated 1 patch topical DAILY PRN (Reason: pain) Qty: 15 0RF Rx Instructions: leave on most painful area for up to 12 hrs No Action cyclobenzaprine 5 mg tablet 5 mg PO TID PRN (Reason: muscle spasm) Qty: 14 0RF naproxen 500 mg tablet 500 mg PO BID PRN (Reason: pain) Qty: 10 0RF Januvia 100 mg tablet 100 mg PO DAILY metformin 1,000 mg tablet 1,000 mg PO BID Jardiance 25 mg tablet 25 mg PO QAM lisinopril 10 mg tablet 10 mg PO DAILY aspirin 81 mg tablet,delayed release (DR/EC) 81 mg PO DAILY magnesium citrate Solution 150 ml PO ONCE Qty: 300 0RF glipizide 5 mg tablet extended release 24hr 5 mg PO DAILY atorvastatin 80 mg tablet 80 mg PO BEDTIME famotidine 40 mg tablet 40 mg PO BID Qty: 180 2RF bisacodyl [Dulcolax (bisacodyl)] 5 mg tablet,delayed release (DR/EC) 10 mg PO BEDTIME 30 Days Qty: 60 6RF <SHAHID Tobin - Last Filed: 09/06/22 16:40> Referrals: [facility] [Provider Group] - 1 week Yoselyn Ware MD [Primary Care Provider] - 2 days <SHAHID Tobin - Last Filed: 09/06/22 16:40> Stand Alone Forms: Work/School Release <SHAHID Tobin - Last Filed: 09/06/22 16:40> Interventions: ED Discharge Assessment Last Done: 09/06/22 20:19 <SHAHID Tobin - Last Filed: 09/06/22 16:40> Discharge Date/Time: 09/06/22 20:19 <SHAHID Tobin - Last Filed: 09/06/22 16:40>
[2022-09-06 16:35] VITALS: BP 142/64; PULSE 77; RESP 18; TEMP 36.7; O2SAT 98; BMI 36.0
--- NOTE | 2022-09-06 16:35 | ECG_ITS ---
Test Reason : R SHOULDER PAIN Blood Pressure : / mmHG Vent. Rate : 083 BPM Atrial Rate : 083 BPM P-R Int : 166 ms QRS Dur : 084 ms QT Int : 356 ms P-R-T Axes : 077 009 022 degrees QTc Int : 418 ms Normal sinus rhythm Right atrial enlargement Borderline ECG When compared with ECG of 01-JUN-2018 15:24, No significant changes seen Referred By: Li See Electronically Signed By:JEFFREY GUIDO
[2022-09-06 18:49] VITALS: BP 186/60; PULSE 83; O2SAT 94
[2022-09-06] MEDS: diazePAM 2 MG TABLET PO (18:53)
[2022-09-06] MEDS: Lidocaine 4 % Patch ADH..PATCH 1 PATCH TRANSDERMA (18:53)
--- NOTE | 2022-09-06 18:57 | PC.NURSE ---
patient a&ox3, pt c/o 02/11 rt shoulder pain, pt medicated per order, vss, call zhou within reach, will continue to monitor
[2022-09-06] MEDS: Ketorolac Tromethamine 15 MG/ML VIAL 30 MG IM (20:09)
--- NOTE | 2022-09-06 20:12 | PC.NURSE ---
pt medicated per order, tech to apply sling and pt ready to discharge
== END 2022-09-06 20:19 | disposition home or self-care (01) ==
PROVIDERS: Emergency Provider Student in an Organized Health Care Education/Training Program; PCP Internal Medicine
DX: M54.12 Radiculopathy, cervical region (principal); M25.511 Pain in right shoulder; E11.9 Type 2 diabetes mellitus without complications; I10 Essential (primary) hypertension; E78.5 Hyperlipidemia, unspecified; F17.210 Nicotine dependence, cigarettes, uncomplicated; Z79.84 Long term (current) use of oral hypoglycemic drugs; Z79.02 Long term (current) use of antithrombotics/antiplatelets; Z79.899 Other long term (current) drug therapy
CPT/HCPCS: 73030; 73060; 93005; 96372; 99284; J1885

== ENCOUNTER 2022-09-13 09:13 | Outpatient (REF) | payer OTHER, SELFPAY ==
[2022-09-13 10:25] LABS: Estimated Average Glucose 192 mg/dL; Hemoglobin A1c % 8.3 %
[2022-09-13 11:22] LABS: Alanine Aminotransferase 21 U/L (0-31); Albumin Level 4.2 g/dL (3.5-5.0); Alkaline Phosphatase 96 U/L (39-117); Anion Gap 13 (12-20); Aspartate Amino Transferase 21 U/L (5-31); Bilirubin Total 0.4 mg/dL (0.0-1.0); Blood Urea Nitrogen 12 mg/dL (9-16); Calcium 9.2 mg/dL (8.4-10.2); Carbon Dioxide 26 mmol/L (22-29); Chloride 107 mmol/L (96-108); Estimated Glomerular Filt Rate > 60; Glucose Random 186 mg/dL (60-115); Potassium 4.6 mmol/L (3.3-5.1); Sodium 141 mmol/L (135-145); Total Protein 6.6 g/dL (6.5-8.0)
== END 2022-09-13 09:14 | disposition home or self-care (01) ==
LOC: HO.LAB 09:13
PROVIDERS: PCP Internal Medicine; Visit Provider Internal Medicine
DX: Z00.00 Encounter for general adult medical examination without abnormal findings (principal); E11.9 Type 2 diabetes mellitus without complications; E78.00 Pure hypercholesterolemia, unspecified; I10 Essential (primary) hypertension
CPT/HCPCS: 36415; 80053; 83036

== ENCOUNTER → 2022-09-30 10:28 | Outpatient (BNVA) | payer OTHER, SELFPAY | PROVIDERS: PCP Internal Medicine; Visit Provider Physician Assistant | DX: S16.1XXA Strain of muscle, fascia and tendon at neck level, initial encounter (principal); M77.11 Lateral epicondylitis, right elbow | CPT/HCPCS: 99202 ==

== ENCOUNTER → 2022-10-07 11:18 | Outpatient (BNVA) | payer OTHER, SELFPAY | PROVIDERS: PCP Internal Medicine; Visit Provider Nurse Practitioner | DX: K21.9 Gastro-esophageal reflux disease without esophagitis (principal); K59.00 Constipation, unspecified; Z79.899 Other long term (current) drug therapy | CPT/HCPCS: 99212 ==

== ENCOUNTER 2022-10-19 10:52 | Outpatient (RCR) | payer OTHER, SELFPAY ==
--- NOTE | 2022-10-19 11:52 | MHC.OT.EP ---
[address] [phone] Occupational Therapy Plan of Care Date of Evaluation: 10/19/22 Diagnosis: Right shoulder and elbow Pain Location: Right shoulder and elbow, ache Pain Score: 6 Pain Scale Used: Numeric (0 - 10) Aggravating Factors: Everyday use, heavy activity, reaching around w/ right arm Alleviating Factors: Heat packs Assessment: 51 yo right hand dominant female presents w/ persistent pain in right shoulder, elbow and hand for about a month. She reports no specific injury, but woke up after a day a vacuuming and may have over used the arm. She was seen at [facility] and referred to OT for continued assessment and management. On assessment, she reports general pain radiating down right shoulder into upperarm, laterel elbow and dorsal forearm. She is guarded with movements and has decreased end range shoulder and elbow movements; impaired gross grasp and pain w/ resisted wrist extension. She will benefit from cont'd therapy to progress range, strength and overall functional use of right arm for daily activities and reduction of pain. Frequency and Duration: The patient will be seen 2x/wk for 4 weeks Short Term Goals: Ind w/ HEP Pt to report ease w/ nighttime/sleeping positioning Pt to demo ease with full UB AROM Good follow through w/ joint protection/activity modification of lateral elbow pain Kettle Loader Goals: Progress to isotonic strengthening program Quickdash score <35 Gross grasp 35lb Pt to report <3/10 pain w/ moderate IADL Pt to report pain free w/ light self care tasks Treatment Plan: Therapeutic Exercise Therapeutic Activity Home Exercise Program Patient Education ADL Training MHP Soft Tissue Mobilization Kinesiotaping Electronically Signed By: Abida Gama OTR/L CHT Please Sign and return to therapist. Thank you once again for your referral.
--- NOTE | 2022-11-07 13:13 | MHC.OT.DC ---
[address] [phone] F: [phone] Occupational Therapy Discharge Note Patient Name: Isatu Purdy Provider: Lilo Rosales PA-C Diagnosis: Right shoulder and elbow Date of Evaluation: 10/19/22 Date of Discharge: 11/07/22 Treatments to Date: 1 Cancellations to Date: 2 No Shows to Date: 1 Discharge Status: Patient Elected to Stop Visit Non-compliance Discharge Summary: Isatu was referred to OT for RUE pain. She was seen for initial assessment and given simple HEP w/ plan to return to continue therapy services, but has since cancelled or no-showed all follow up appointments. We will be discharging from OT at this time. Electronically Signed By: CHRISTINA Ramos/Lorrie STINSONT Reviewed/agree with student documentation: Therapist: Please Sign and return to therapist, thank you for your referral.
== END 2022-11-07 13:13 | disposition home or self-care (01) ==
LOC: HO.OT 10:52
PROVIDERS: Visit Provider Physician Assistant
DX: M77.11 Lateral epicondylitis, right elbow (principal)
CPT/HCPCS: 97110; 97165

== ENCOUNTER 2023-04-06 11:23 | Outpatient (AMB) | payer OTHER, SELFPAY ==
[2023-04-06 11:27] VITALS: BP 118/78; PULSE 82; BMI 35.0
--- NOTE | 2023-04-06 11:27 | MHC.OFFVIS ---
Intake Vital Signs 04/06/23 11:27 Height 5 ft 4 in Weight 203 lb 11.314 oz BMI 35.0 BP 118/78 Blood Pressure Location Lt brachial Position Sitting Pulse 82 Intake Visit Reasons: 6 month fu Intake Note: Patient presents to in office visit today in follow up of CIC and GERD. CC: Patient reports GERD is well managed with medications. Denies other GI symptoms. 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 The famotidine is continuing to control her GERD and the bisacodyl her constipation. Only new med problem is pain in the right arm - she will be having PT. ROV 6 mos. (2) Constipation: ?Code(s): K59.00 - Constipation, unspecified ? ? ? Medications: Refilled famotidine 40 mg? PO BID 180 tabs 2RF K21.9 - Gastro-eso phageal reflux dis ease without esoph agitis, R13.10 - D ysphagia, unspecif ied ? bisacodyl (Dulcola x (bisacodyl)) 10 mg (2 x 5 mg) P O BEDTIME 30 days 60 tabs 6RF K59.00 - Constipat ion, unspecified TODAY'S VISIT She continues to do well. The famotidine is continuing to control her GERD and the bisacodyl her constipation. She had physical therapy for her arm but could not complete a full course due to her job requirements but is feeling better. She is happy with her GI regimen and agreeable to a 6 month follow-up. 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 Review of Systems Const Denies fatigue, Denies fever(s), Denies night sweats, Denies poor appetite and Denies weight loss Eyes Details: janis Reports requires corrective lenses ENT Reports Normal hearing present, Denies dental pain, Denies dysphagia, Denies hearing loss, Denies mouth pain, Denies odynophagia, Denies throat swelling, Denies tongue swelling and Reports other (Dentition adequate) Card Reports no additional complaints Resp Reports no additional complaints GI Denies abdominal pain, Denies melena, Denies bloating, Denies hematochezia, Reports constipation, Denies GI cramping, Denies dysphagia, Denies excessive flatus, Denies early satiety, Reports heartburn, Denies diarrhea, Denies nausea, Denies odynophagia, Denies vomiting and Denies hematemesis Skin/Breast Denies pruritus, Denies lesions, Denies rash and Denies jaundice Neuro Reports Normal hearing present and Denies Abnormal speech present Endo Denies fatigue Aller/Immun Denies throat swelling and Denies tongue swelling Physical Exam Vital Signs: Last Vital Signs Pulse 82 04/06/23 11:27 BP 118/78 04/06/23 11:27 BMI result Body Mass Index 35.0 Const General: cooperative, no acute distress, well developed and well groomed Nutritional Appearance: well nourished and obese Orientation/consciousness: oriented to person, oriented to place and oriented to time Limitations: No language barrier and ambulation with walker HEENT Head: Yes normocephalic and Yes atraumatic Eyes General: appearance normal, both eyes and all related structures Pupils: Equal, round and reactive pupils present Neck Neck: Yes normal visual inspection and Yes no lymphadenopathy Thyroid: Thyroid normal Resp Effort & Inspection: normal respiratory effort and able to speak in complete sentences Auscultation: clear to auscultation bilaterally Cardio Rate: regular rate Rhythm: regular rhythm Heart sounds: Normal, physiologic split S2 sound present Peripheral pulses: radial pulses present and posterior tibial pulses present GI Inspection: No distended, No Abdominal panniculus present and Yes obesity Palpation (GI): Soft to palpation, nontender, no guarding, not rigid and No hepatosplenomegaly present Percussion: Yes normal to percussion Auscultation: normal bowel sounds Rectal Exam - Female: deferred Skin General skin exam: no rashes or lesions noted, turgor normal, skin not dry, no jaundice, No spider nevi and no striae Rashes: no rashes Nails: normal Neuro General: oriented to person, oriented to place and oriented to time Cranial nerves: Yes Equal, round and reactive pupils present and Yes Normal hearing present Speech: No Abnormal speech present Extrem General: Yes normal to inspection, No clubbing, No cyanosis and No edema Psych Appearance: grossly normal and well kempt Mental Status: mental status grossly normal Speech and movement: Normal speech and movement present Affect: normal affect Attitude: cooperative Thought process: Normal thought process present and not confabulating Thought content: Normal thought content present Insight: Fair insight present (Psych) Judgement: Fair judgement present (Psych) Assessment & Plan Assessment & Plan (1) GERD (gastroesophageal reflux disease): Code(s): K21.9 - Gastro-esophageal reflux disease without esophagitis Plan: She continues to do well. The famotidine is continuing to control her GERD and the bisacodyl her constipation. She had physical therapy for her arm but could not complete a full course due to her job requirements but is feeling better. She is happy with her GI regimen and agreeable to a 6 month follow-up. (2) Constipation: Code(s): K59.00 - Constipation, unspecified (3) Dysphagia: Comment: RESOLVED WITH TREATING THE REFLUX AEB Code(s): R13.10 - Dysphagia, unspecified Coding Level of Care Code Est Pt Level 3 (82651) Diagnoses GERD (gastroesophageal reflux disease) K21.9 Constipation K59.00 Dysphagia R13.10
== END 2023-04-06 11:39 | disposition home or self-care (01) ==
PROVIDERS: Visit Provider Nurse Practitioner
DX: K21.9 Gastro-esophageal reflux disease without esophagitis (principal); K59.00 Constipation, unspecified; R13.10 Dysphagia, unspecified
CPT/HCPCS: 99213

== ENCOUNTER → 2023-04-06 11:23 | Outpatient (BNVA) | payer MEDICAID, SELFPAY | PROVIDERS: Visit Provider Nurse Practitioner | DX: K59.00 Constipation, unspecified (principal); K21.9 Gastro-esophageal reflux disease without esophagitis; R13.10 Dysphagia, unspecified | CPT/HCPCS: 99212 ==

== ENCOUNTER 2023-05-16 14:22 | Outpatient (REF) | payer MEDICAID, SELFPAY ==
[2023-05-16 14:50] LABS: MANUAL DIFF FLAG NO
[2023-05-16 15:15] LABS: Basophils Percent Auto 0.5 % (0-2); Eosinophils Absolute Auto 0.1 X10*3/uL (0.0-0.4); Hematocrit 45.6 % (37.0-47.0); Hemoglobin 15.1 g/dl (12.0-16.0); Imm Gran Abs Auto 0.02 X10*3/uL (0.00-0.03); Imm Gran Pct Auto 0.3 % (0.0-0.4); Lymphocytes Absolute Auto 3.2 X10*3/uL (1.2-4.9); Lymphocytes Percent Auto 40.3 % (20-40); Mean Corpuscular HGB Conc 33.1 g/dl (31.0-35.0); Mean Corpuscular Hemoglobin 30.4 pg (27.0-33.0); Mean Corpuscular Volume 91.9 fL (80.0-98.0); Mean Platelet Volume 11.2 fL (9.4-12.3); Monocytes Absolute Auto 0.6 X10*3/uL (0.1-1.2); Monocytes Percent Auto 7.5 % (2-11); Neutrophils Percent Auto 50.4 % (45-73); Platelet Count 196 X10*3/uL (160-400); Red Blood Count 4.96 X10*6/uL (4.20-5.50); Red Cell Distribution Width 13.8 % (11.0-16.0); White Blood Count 7.9 X10*3/uL (4.8-10.8)
[2023-05-16 15:23] LABS: Estimated Average Glucose 171 mg/dL; Hemoglobin A1c % 7.6 % (<6.0)
[2023-05-16 15:40] LABS: Creatinine Urine 191.87 mg/dL; Microalbum/Creatinine Ratio Ur 9.9 ug/mg cr (<30)
[2023-05-16 15:43] LABS: Alanine Aminotransferase 17 U/L (0-31); Albumin Level 4.2 g/dL (3.5-5.0); Alkaline Phosphatase 103 U/L (39-117); Anion Gap 9 (12-20); Aspartate Amino Transferase 18 U/L (5-31); Bilirubin Total 0.5 mg/dL (0.0-1.0); Blood Urea Nitrogen 7 mg/dL (9-16); Calcium 9.7 mg/dL (8.4-10.2); Carbon Dioxide 29 mmol/L (22-29); Chloride 107 mmol/L (96-108); Cholesterol 118 mg/dL (<200); Estimated Glomerular Filt Rate > 60; Glucose Random 171 mg/dL (60-115); HDL Cholesterol 48 mg/dL (>40); LDL Cholesterol Calculated 42 mg/dL (<100); Potassium 3.9 mmol/L (3.3-5.1); Sodium 141 mmol/L (135-145); Triglycerides 144 mg/dL (<150)
== END 2023-05-16 14:23 | disposition home or self-care (01) ==
LOC: HO.LAB 14:22
PROVIDERS: PCP Internal Medicine; Visit Provider Internal Medicine
DX: Z00.00 Encounter for general adult medical examination without abnormal findings (principal); E11.65 Type 2 diabetes mellitus with hyperglycemia; E78.00 Pure hypercholesterolemia, unspecified; I10 Essential (primary) hypertension; R80.8 Other proteinuria
CPT/HCPCS: 36415; 80053; 80061; 82043; 82570; 83036; 85025

== ENCOUNTER 2023-07-03 10:38 | Outpatient (REF) | payer MEDICAID, SELFPAY | END 2023-07-03 10:39 | disposition home or self-care (01) | LOC: HO.MAMMO 10:38 | PROVIDERS: PCP Internal Medicine; Visit Provider Internal Medicine | DX: Z12.31 Encounter for screening mammogram for malignant neoplasm of breast (principal) | CPT/HCPCS: 77063; 77067 ==

== ENCOUNTER → 2023-07-03 11:30 | Outpatient (BNV) | payer MEDICAID, SELFPAY | PROVIDERS: PCP Internal Medicine; Visit Provider Radiology Diagnostic Radiology | DX: Z12.31 Encounter for screening mammogram for malignant neoplasm of breast (principal) | CPT/HCPCS: 77063; 77067 ==

== ENCOUNTER 2023-08-14 07:10 | Outpatient (REF) | payer MEDICAID, SELFPAY ==
[2023-08-14 07:31] LABS: MANUAL DIFF FLAG NO
[2023-08-14 07:47] LABS: Basophils Percent Auto 0.4 % (0-2); Eosinophils Absolute Auto 0.1 X10*3/uL (0.0-0.4); Eosinophils Percent Auto 1.6 % (0-4); Hematocrit 43.8 % (37.0-47.0); Hemoglobin 14.4 g/dl (12.0-16.0); Imm Gran Abs Auto 0.03 X10*3/uL (0.00-0.03); Imm Gran Pct Auto 0.4 % (0.0-0.4); Lymphocytes Absolute Auto 3.7 X10*3/uL (1.2-4.9); Lymphocytes Percent Auto 48.9 % (20-40); Mean Corpuscular HGB Conc 32.9 g/dl (31.0-35.0); Mean Corpuscular Hemoglobin 29.9 pg (27.0-33.0); Mean Corpuscular Volume 91.1 fL (80.0-98.0); Mean Platelet Volume 11.1 fL (9.4-12.3); Monocytes Absolute Auto 0.6 X10*3/uL (0.1-1.2); Monocytes Percent Auto 8.3 % (2-11); Neutrophils Absolute Auto 3.1 x10*3/uL (2.0-8.3); Neutrophils Percent Auto 40.4 % (45-73); Platelet Count 191 X10*3/uL (160-400); Red Blood Count 4.81 X10*6/uL (4.20-5.50); Red Cell Distribution Width 13.3 % (11.0-16.0); White Blood Count 7.6 X10*3/uL (4.8-10.8)
[2023-08-14 07:56] LABS: Estimated Average Glucose 206 mg/dL; Hemoglobin A1c % 8.8 % (<6.0)
[2023-08-14 08:07] LABS: Alanine Aminotransferase 20 U/L (0-31); Albumin Level 4.1 g/dL (3.5-5.0); Alkaline Phosphatase 100 U/L (39-117); Anion Gap 13 (12-20); Aspartate Amino Transferase 16 U/L (5-31); Bilirubin Total 0.7 mg/dL (0.0-1.0); Blood Urea Nitrogen 9 mg/dL (9-16); Calcium 9.5 mg/dL (8.4-10.2); Carbon Dioxide 25 mmol/L (22-29); Chloride 106 mmol/L (96-108); Cholesterol 119 mg/dL (<200); Estimated Glomerular Filt Rate > 60; Glucose Random 195 mg/dL (60-115); HDL Cholesterol 47 mg/dL (>40); LDL Cholesterol Calculated 46 mg/dL (<100); Potassium 4.2 mmol/L (3.3-5.1); Sodium 140 mmol/L (135-145); Total Protein 6.9 g/dL (6.5-8.0); Triglycerides 133 mg/dL (<150)
[2023-08-14 08:50] LABS: Creatinine Urine 209.33 mg/dL; Microalbum/Creatinine Ratio Ur 23.4 ug/mg cr (<30)
== END 2023-08-14 07:11 | disposition home or self-care (01) ==
LOC: HO.LAB 07:10
PROVIDERS: PCP Internal Medicine; Visit Provider Internal Medicine
DX: Z00.00 Encounter for general adult medical examination without abnormal findings (principal); E11.65 Type 2 diabetes mellitus with hyperglycemia; E78.00 Pure hypercholesterolemia, unspecified; R80.8 Other proteinuria; I10 Essential (primary) hypertension
CPT/HCPCS: 36415; 80053; 80061; 82043; 82570; 83036; 85025

== ENCOUNTER 2023-08-16 09:37 | Emergency (ER) | payer MEDICAID, SELFPAY ==
--- NOTE | ~2023-08-16 | XR_ITS ---
EXAMINATION: XR CHEST CLINICAL INFORMATION: Left-sided discomfort chronic smoker COMPARISON: Chest radiograph from 06/01/20202017 TECHNIQUE: 2 views of the chest were obtained. FINDINGS: No focal consolidation. No pneumothorax. Trachea is midline. Cardiac mediastinal silhouette is not enlarged. No large pleural effusion. Degenerative changes of the thoracolumbar spine. Soft tissues are unremarkable. XR/XR chest 2V IMPRESSION: No acute cardiopulmonary process.
[2023-08-16 09:40] VITALS: BP 116/74; PULSE 86; RESP 18; TEMP 36.6; O2SAT 100; BMI 35.2
--- NOTE | 2023-08-16 09:43 | ECG_ITS ---
Test Reason : CHEST PAIN Blood Pressure : / mmHG Vent. Rate : 075 BPM Atrial Rate : 075 BPM P-R Int : 162 ms QRS Dur : 080 ms QT Int : 382 ms P-R-T Axes : 082 015 040 degrees QTc Int : 426 ms Normal sinus rhythm Biatrial enlargement Abnormal ECG When compared with ECG of 06-SEP-2022 16:41, No significant change was found Referred By: Generic ED Physician Electronically Signed By:Riccardo Carreon
[2023-08-16 09:56] VITALS: BP 120/59; PULSE 72; RESP 14; TEMP 37.2; O2SAT 100
--- NOTE | 2023-08-16 10:04 | PC.NURSE ---
20gIV placed in right AC - labs drawn and sent to lab. tech bedside performing EKG.
[2023-08-16 10:06] LABS: MANUAL DIFF FLAG NO
[2023-08-16 10:07] LABS: Basophils Percent Auto 0.3 % (0-2); Eosinophils Absolute Auto 0.1 X10*3/uL (0.0-0.4); Eosinophils Percent Auto 0.9 % (0-4); Hematocrit 45.7 % (37.0-47.0); Hemoglobin 15.2 g/dl (12.0-16.0); Imm Gran Abs Auto 0.03 X10*3/uL (0.00-0.03); Imm Gran Pct Auto 0.4 % (0.0-0.4); Lymphocytes Absolute Auto 2.5 X10*3/uL (1.2-4.9); Mean Corpuscular HGB Conc 33.3 g/dl (31.0-35.0); Mean Corpuscular Hemoglobin 30.1 pg (27.0-33.0); Mean Corpuscular Volume 90.5 fL (80.0-98.0); Mean Platelet Volume 10.8 fL (9.4-12.3); Monocytes Absolute Auto 0.6 X10*3/uL (0.1-1.2); Monocytes Percent Auto 8.8 % (2-11); Neutrophils Absolute Auto 3.7 x10*3/uL (2.0-8.3); Neutrophils Percent Auto 53.6 % (45-73); Platelet Count 182 X10*3/uL (160-400); Red Blood Count 5.05 X10*6/uL (4.20-5.50); Red Cell Distribution Width 13.5 % (11.0-16.0); White Blood Count 6.9 X10*3/uL (4.8-10.8)
--- NOTE | 2023-08-16 10:12 | PC.NURSE ---
pt speaking w/ ED provider at this time. 20gIV placed in the right AC - labs drawn and sent to lab.
[2023-08-16 10:19] LABS: Anion Gap 15 (12-20); Blood Urea Nitrogen 9 mg/dL (9-16); Calcium 9.8 mg/dL (8.4-10.2); Carbon Dioxide 26 mmol/L (22-29); Chloride 103 mmol/L (96-108); Creatinine Clr Calc Pharmacy 102.9; Estimated Glomerular Filt Rate > 60; Glucose Random 154 mg/dL (60-115); Potassium 3.9 mmol/L (3.3-5.1); Sodium 140 mmol/L (135-145)
[2023-08-16 10:29] LABS: Troponin-I High Sensitivity < 2.7 ng/L (<3.5-17.0)
[2023-08-16 10:43] LABS: COVID-19 Test Negative (Negative); IDNOW Serial# 08D9AD1C; IDNOW Serial# BCCEAD1C; Influenza A Negative (Negative); Influenza B2 Negative (Negative)
[2023-08-16] MEDS: Acetaminophen 325 MG TABLET 975 MG PO (10:47)
[2023-08-16] MEDS: Ibuprofen 400 MG TABLET PO (10:47)
--- NOTE | 2023-08-16 10:49 | PC.NURSE ---
medication administered per provider order. will reassess pain level.
--- NOTE | 2023-08-16 11:07 | ED.CHESTPAIN ---
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 She denies any fever, chills, any GI or symptoms. Patient is an everyday smoker. Related Data Home Medications Medication Instructions Recorded Confirmed lisinopril 10 mg tablet 10 mg PO DAILY 11/04/20 11/04/20 metformin 1,000 mg tablet 1,000 mg PO BID 11/04/20 11/04/20 aspirin 81 mg tablet,delayed 81 mg PO DAILY 06/10/21 08/12/21 release atorvastatin 80 mg tablet 80 mg PO BEDTIME 07/19/22 glipizide 5 mg tablet, extended 5 mg PO DAILY 07/19/22 release 24 hr dulaglutide 0.75 mg/0.5 mL 0.75 mg subcut QWEEK 04/06/23 [facility] Previous Rx's Medication Instructions Recorded cyclobenzaprine 5 mg tablet 5 mg PO TID PRN muscle spasm #14 01/20/22 tabs diazepam 2 mg tablet (Valium) 2 mg PO BID PRN muscle spasm #8 09/06/22 tabs lidocaine 5 % topical patch 1 patch topical DAILY PRN pain #15 09/06/22 ea naproxen 500 mg tablet 500 mg PO BID PRN pain 30 days #60 09/30/22 tabs bisacodyl 5 mg tablet,delayed 10 mg (2 x 5 mg) PO BEDTIME 30 10/07/22 release (Dulcolax (bisacodyl)) days #60 tabs famotidine 40 mg tablet 40 mg PO BID #180 tabs 10/07/22 Allergies Allergy/AdvReac Type Severity Reaction Status Date / Time No Known Allergies Allergy Verified 08/16/23 09:40 [No Known Allergies*] Review of Systems Review of Systems: Pertinent positives and negatives as stated in HPI PMFSH Past Medical History Source: nursing notes reviewed Medical History History of COVID-19 Diabetes Elevated cholesterol HTN (hypertension) GERD (gastroesophageal reflux disease) Surgical History History of esophagogastroduodenoscopy (EGD) Hx of section Hx of tooth extraction Hx of colonoscopy Hx of tubal ligation Family History Family History Father HTN (hypertension) Mother Hypothyroidism Social History Social History Alcohol intake: never Patient Tobacco Use Status: Current everyday Tobacco user Cigarettes Per Day: 7 Years Smoked: 35 Smoked in Last 30 Days: Yes Use of substances other than those prescribed or required for medical reasons: No Advance Directives: No Advance Directives Information Provided: Yes Patient : No Current occupational status: employed 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 GENERAL: Well developed, well nourished, in no acute distress. HEAD: Normocephalic/atraumatic EYES: PERRLA, EOMI EARS: Ext canals without abnormality, TMs non-bulging and non-erythematous NOSE: Nares patent bilateral OROPHARYNX: no oral lesions noted, posterior pharynx clear and non-erythematous without noted tonsillar enlargement/erythema/exudates NECK: Supple, no adenopathy LUNGS: Normal breath sounds. No adventitious sounds or accessory muscle use. SpO2<100> CARDIOVASCULAR: Regular rate and rhythm without noted murmurs ABDOMEN: Soft, non-tender, non-distended with bowel sounds. MUSCULOSKELETAL: No tenderness, deformities, or effusions noted on gross inspection. EXTREMITIES: No cyanosis, clubbing or edema. SKIN: Inspection of the skin reveals no rashes NEUROLOGIC: Alert and oriented x 4. Strength and sensation to light touch were grossly intact x 4. Medications Administered Discontinued Medications Generic Name Dose Route Start Last Admin Trade Name Brandie PRN Reason Stop Dose Admin Acetaminophen 975 mg 08/16/23 10:16 08/16/23 10:47 Acetaminophen 325 Mg Tablet PO 08/16/23 10:17 975 mg ONCE ONE Administration Ibuprofen 400 mg 08/16/23 10:16 08/16/23 10:47 Ibuprofen 400 Mg Tablet PO 08/16/23 10:17 400 mg ONCE ONE Administration Medical Decision Making Medical Decision Making [facility] Narrative: 52-year-old female with history and clinical presentation, DDX: Musculoskeletal pain, muscle spasm, very low clinical suspicion for ACS or pneumonia, possibility of viral infection with COVID/influenza/RSV. I reviewed all investigations and hematologic indices are grossly within normal limits without any noted derangements. Chemistry indices grossly within normal limits without any noted derangements, high sensitivity troponin is undetectable. Viral testing is negative for COVID-19/influenza. EKG does not demonstrate any acute changes when compared to prior. Chest x-ray without infiltrates and otherwise my interpretation is in agreement with radiology's impression. My interpretation is that this is musculoskeletal in nature in combination with spasm. Differential Diagnosis Differential Diagnoses: The differential diagnosis associated with the presentation includes Please see the discussion above Admission/Observation Consideration of admission/observation: Escalation of care including admission/observation considered Please see the discussion above Lab Data [facility] Lab Attestation statement: I reviewed the patient's lab results. Please see the discussion above 08/16/23 10:02 08/16/23 10:02 Labs: Lab Results 08/16/23 08/16/23 Range/Units 10:02 10:20 WBC 6.9 (4.8-10.8) X10*3/uL RBC 5.05 (4.20-5.50) X10*6/uL Hgb 15.2 (12.0-16.0) g/dl Hct 45.7 (37.0-47.0) % MCV 90.5 (80.0-98.0) fL MCH 30.1 (27.0-33.0) pg MCHC 33.3 (31.0-35.0) g/dl RDW 13.5 (11.0-16.0) % Plt Count 182 (160-400) X10*3/uL MPV 10.8 (9.4-12.3) fL Immature Gran % (Auto) 0.4 (0.0-0.4) % Neut % (Auto) 53.6 (45-73) % Lymph % (Auto) 36.0 (20-40) % Moody % (Auto) 8.8 (2-11) % Eos % (Auto) 0.9 (0-4) % Baso % (Auto) 0.3 (0-2) % Lymph # (Auto) 2.5 (1.2-4.9) X10*3/uL Moody # (Auto) 0.6 (0.1-1.2) X10*3/uL Eos # (Auto) 0.1 (0.0-0.4) X10*3/uL Baso # (Auto) 0.0 (0.0-0.2) X10*3/uL Abs Immat Gran (auto) 0.03 (0.00-0.03) X10*3/uL Absolute Neuts (auto) 3.7 (2.0-8.3) x10*3/uL Absolute Nucleated RBC 0.000 (0.0-0.012) X10*3/uL Nucleated RBC % (auto) 0.0 (0.0-0.2) /100WBC Sodium 140 (135-145) mmol/L Potassium 3.9 (3.3-5.1) mmol/L Chloride 103 (96-108) mmol/L Carbon Dioxide 26 (22-29) mmol/L Anion Gap 15 (12-20) BUN 9 (9-16) mg/dL Creatinine 0.69 (0.5-1.4) mg/dL Estim Creat Clear Calc 102.9 Estimated GFR > 60 Random Glucose 154 H (60-115) mg/dL Calcium 9.8 (8.4-10.2) mg/dL Troponin I High Sens < 2.7 (<3.5-17.0) ng/L COVID-19 (DOV) Negative (Negative) COVID-19 Clin Com See Note Influenza Type A (RADHA) Negative (Negative) Influenza Type B (RADHA) Negative (Negative) Influenza A & B Note See Note Independent Interpretation I performed an independent interpretation of an: EKG Interpretation: Normal sinus rhythm, HR-75, no STEMI, TX/QRS/QTC is within normal limits. Radiology Impression Discussion of test interpretation with radiology: I have reviewed the radiologist's reading. Radiologist Impression: Please see the discussion above External Record Review External record reviewed: Outpatient record, Prior outpatient labs and Prior outpatient radiology Chronic Conditions Patient?s care impacted by: Diabetes Critical Care Time Critical Care Time Critical Care Time: Yes Total Critical Care Time: 30 Attestation: I personally attest to this time spent taking care of the patient. Discharge Plan Discharge Clinical Impression: Musculoskeletal pain, Muscle spasm Patient Disposition: Home, Self-Care Instructions: Musculoskeletal Pain (ED), Muscle Spasm (ED) Additional Instructions: 1. Tylenol 1000 mg, orally, every 6 hours as needed for pain control. Do not exceed 4000 mg within 24 hours. 2. Ibuprofen, orally with milk or food, every 6 hours as needed for pain control. You may take this medication with Tylenol for improved symptom relief. 3. Lidocaine patch, apply to area of maximal tenderness as directed on the outside packaging. 4. Please follow-up with your primary care doctor at your earliest convenience. Return to the ER for any worsening symptoms. Prescriptions: No Action diazepam [Valium] 2 mg tablet 2 mg PO BID PRN (Reason: muscle spasm) Qty: 8 0RF lidocaine 5 % adhesive patch,medicated 1 patch topical DAILY PRN (Reason: pain) Qty: 15 0RF Rx Instructions: leave on most painful area for up to 12 hrs cyclobenzaprine 5 mg tablet 5 mg PO TID PRN (Reason: muscle spasm) Qty: 14 0RF metformin 1,000 mg tablet 1,000 mg PO BID lisinopril 10 mg tablet 10 mg PO DAILY aspirin 81 mg tablet,delayed release (DR/EC) 81 mg PO DAILY naproxen 500 mg tablet 500 mg PO BID PRN (Reason: pain) 30 Days Qty: 60 3RF glipizide 5 mg tablet extended release 24hr 5 mg PO DAILY atorvastatin 80 mg tablet 80 mg PO BEDTIME famotidine 40 mg tablet 40 mg PO BID Qty: 180 2RF bisacodyl [Dulcolax (bisacodyl)] 5 mg tablet,delayed release (DR/EC) 10 mg PO BEDTIME 30 Days Qty: 60 6RF Trulicity 0.75 mg/0.5 mL pen injector 0.75 mg subcut QWEEK Referrals: Yoselyn Ware MD [Primary Care Provider] -
--- NOTE | 2023-08-16 11:12 | PC.NURSE ---
pt to xray at this time.
[2023-08-16 11:58] VITALS: BP 130/70; PULSE 74; RESP 18; TEMP 37.1; O2SAT 99
--- NOTE | 2023-08-16 12:00 | PC.NURSE ---
vss and up to date at this time. nsr on the cardiac technician. pt verbalizing pain level decreased to 6/10 post medication administration. pt awaiting results from xray at this time. respirations remain even and unlabored. family bedside. call zhou placed within reach.
== END 2023-08-16 14:01 | disposition home or self-care (01) ==
PROVIDERS: Emergency Provider Student in an Organized Health Care Education/Training Program; PCP Internal Medicine
DX: M79.18 Myalgia, other site (principal); M62.838 Other muscle spasm; M79.602 Pain in left arm; E11.9 Type 2 diabetes mellitus without complications; I10 Essential (primary) hypertension; E78.5 Hyperlipidemia, unspecified; Z79.84 Long term (current) use of oral hypoglycemic drugs; Z79.02 Long term (current) use of antithrombotics/antiplatelets; Z79.85 Long-term (current) use of injectable non-insulin antidiabetic drugs; F17.210 Nicotine dependence, cigarettes, uncomplicated; Z11.52 Encounter for screening for COVID-19
CPT/HCPCS: 36415; 71046; 80048; 84484; 85025; 87502; 87635; 93005; 99283; 99285

== ENCOUNTER → 2023-08-16 09:43 | Outpatient (BNV) | payer MEDICAID, SELFPAY | PROVIDERS: Emergency Provider Student in an Organized Health Care Education/Training Program; PCP Internal Medicine; Visit Provider Internal Medicine Cardiovascular Disease | DX: R94.31 Abnormal electrocardiogram [ECG] [EKG] (principal); R07.9 Chest pain, unspecified | CPT/HCPCS: 93010 ==

== ENCOUNTER 2023-11-30 10:52 | Outpatient (AMB) | payer MEDICAID, SELFPAY ==
--- NOTE | 2023-11-30 10:53 | MHC.OFFVIS ---
Intake Vital Signs 11/30/23 10:58 Height 5 ft 4 in Weight 202 lb 6.15 oz BMI 34.7 BP 112/62 Blood Pressure Location Rt brachial Position Sitting Pulse 80 Intake Visit Reasons: 6 month f/u Intake Note: Isatu returns to in office 6 months follow up of GERD. CC:Patient c/o noticing a very hard lump from epigastric region after eating , acid reflux, heartburn, nausea, and very dark diarrhea sometimes. Onset of symptoms almost 2 months ago per PT. She also states that when she lays down at night she feels hardening and pain from bilateral flanks. 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 The famotidine is continuing to control her GERD and the bisacodyl her constipation. She had physical therapy for her arm but could not complete a full course due to her job requirements but is feeling better. She is happy with her GI regimen and agreeable to a 6 month follow-up. (2) Constipation: Code(s): K59.00 - Constipation, unspecified (3) Dysphagia: Comment: RESOLVED WITH TREATING THE REFLUX AEB Code(s): R13.10 - Dysphagia, unspecified TODAY'S VISIT She has had 1.5 months of gastric pain and diarrhea that is watery and black. She is fearful to eat r/t this increases the pain. The diarrhea is post prandial. Then the pain also will start on the sides of her abdomen, following the path of the colon and worse if she lays on her side on the contralateral side. Her abd feels bloated and tight with throbbing and cramping. The pain is 9/10 and will subside after a time with periods of pain free if she does not eat. She bought some fish and this seems to have triggered the problem and worsens it. She has nausea and acid brash with only bilious emesis. She had no fevers, no known sick contacts, no medication changes, no diet changes. Return office visit in 3 weeks. 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 Review of Systems Const Denies fatigue, Reports fever(s), Denies night sweats, Reports poor appetite and Denies weight loss ENT Reports Normal hearing present, Denies dental pain, Denies dysphagia, Denies hearing loss, Denies mouth pain, Denies odynophagia, Denies throat swelling, Denies tongue swelling and Reports other (Dentition adequate) Card Reports no additional complaints Resp Reports no additional complaints GI Details: Reports abdominal pain, Denies melena, Denies bloating, Denies hematochezia, Denies constipation, Reports GI cramping, Denies dysphagia, Denies excessive flatus, Denies early satiety, Reports heartburn, Reports diarrhea, Reports nausea, Denies odynophagia, Denies vomiting and Denies hematemesis Skin/Breast Denies pruritus, Denies lesions, Denies rash and Denies jaundice Neuro Reports Normal hearing present and Denies Abnormal speech present Endo Denies fatigue Aller/Immun Denies throat swelling and Denies tongue swelling Physical Exam Vital Signs: Last Vital Signs Pulse 80 11/30/23 10:58 BP 112/62 11/30/23 10:58 BMI result Body Mass Index 34.7 Const General: cooperative, no acute distress, well developed and well groomed Nutritional Appearance: well nourished and obese Orientation/consciousness: oriented to person, oriented to place and oriented to time Limitations: No language barrier HEENT Head: Yes normocephalic and Yes atraumatic Eyes General: appearance normal, both eyes and all related structures Pupils: Equal, round and reactive pupils present Neck Neck: Yes normal visual inspection and Yes no lymphadenopathy Thyroid: Thyroid normal Resp Effort & Inspection: normal respiratory effort and able to speak in complete sentences Auscultation: clear to auscultation bilaterally Cardio Rate: regular rate Rhythm: regular rhythm Heart sounds: Normal, physiologic split S2 sound present Peripheral pulses: radial pulses present and posterior tibial pulses present GI Inspection: No distended, No Abdominal panniculus present and Yes obesity Palpation (GI): Soft to palpation, nontender, no guarding, not rigid and No hepatosplenomegaly present Percussion: Yes normal to percussion Auscultation: normal bowel sounds Rectal Exam - Female: deferred Skin General skin exam: no rashes or lesions noted, turgor normal, skin not dry, no jaundice, No spider nevi and no striae Rashes: no rashes Nails: normal Neuro General: oriented to person, oriented to place and oriented to time Cranial nerves: Yes Equal, round and reactive pupils present and Yes Normal hearing present Speech: No Abnormal speech present Extrem General: Yes normal to inspection, No clubbing, No cyanosis and No edema Psych Appearance: grossly normal and well kempt Mental Status: mental status grossly normal Speech and movement: Normal speech and movement present Affect: normal affect Attitude: cooperative Thought process: Normal thought process present and not confabulating Thought content: Normal thought content present Insight: Limited insight present (Psych) Judgement: Limited judgement present (Psych) Assessment & Plan Assessment & Plan (1) Acute diarrhea: Code(s): R19.7 - Diarrhea, unspecified (2) GERD (gastroesophageal reflux disease): Code(s): K21.9 - Gastro-esophageal reflux disease without esophagitis (3) Constipation: Code(s): K59.00 - Constipation, unspecified (4) Dysphagia: Comment: RESOLVED WITH TREATING THE REFLUX AEB Code(s): R13.10 - Dysphagia, unspecified Plan She has had 1.5 months of gastric pain and diarrhea that is watery and black. She is fearful to eat r/t this increases the pain. The diarrhea is post prandial. Then the pain also will start on the sides of her abdomen, following the path of the colon and worse if she lays on her side on the contralateral side. Her abd feels bloated and tight with throbbing and cramping. The pain is 9/10 and will subside after a time with periods of pain free if she does not eat. She bought some fish and this seems to have triggered the problem and worsens it. She stopped her bisacodyl as is reasonable but continues on her famotidine. She has nausea and acid brash with only bilious emesis. She had no fevers, no known sick contacts, no medication changes, no diet changes. Return office visit in 3 weeks. Orders: Orders GI Panel Today R19.7 - Diarrhea, unspecified CDiff Gene PCR Today R19.7 - Diarrhea, unspecified C Reactive Protein Today R19.7 - Diarrhea, unspecified Coding Level of Care Code Est Pt Level 4 (26130) Diagnoses Acute diarrhea R19.7 GERD (gastroesophageal reflux disease) K21.9 Constipation K59.00 Dysphagia R13.10
[2023-11-30 10:58] VITALS: BP 112/62; PULSE 80; BMI 34.7
== END 2023-11-30 11:22 | disposition home or self-care (01) ==
PROVIDERS: PCP Internal Medicine; Visit Provider Nurse Practitioner
DX: R19.7 Diarrhea, unspecified (principal); K21.9 Gastro-esophageal reflux disease without esophagitis; K59.00 Constipation, unspecified; R13.10 Dysphagia, unspecified
CPT/HCPCS: 99214

== ENCOUNTER 2023-11-30 10:52 | Outpatient (REF) | payer MEDICAID, SELFPAY | END 2023-11-30 10:53 | disposition home or self-care (01) | LOC: HO.LNP 10:52 | PROVIDERS: PCP Internal Medicine; Visit Provider Nurse Practitioner | DX: R19.7 Diarrhea, unspecified (principal); K21.9 Gastro-esophageal reflux disease without esophagitis; K59.00 Constipation, unspecified; R13.10 Dysphagia, unspecified | CPT/HCPCS: 99212 ==

== ENCOUNTER 2023-12-01 12:37 | Outpatient (REF) | payer MEDICAID, SELFPAY ==
[2023-12-01 13:58] LABS: CDiff Gene PCR NEGATIVE (Negative)
[2023-12-01 14:08] LABS: Adenovirus F 40/41 Not Detected (Not Detect.); Astrovirus Not Detected (Not Detect.); Campylobacter Not Detected (Not Detect.); Cryptosporidium Not Detected (Not Detect.); Cyclospora cayetanensis Not Detected (Not Detect.); E. coli EAEC Not Detected (Not Detect.); E. coli EPEC Not Detected (Not Detect.); E. coli ETEC Not Detected (Not Detect.); E. coli STEC Not Detected (Not Detect.); Entamoeba histolytica Not Detected (Not Detect.); Giardia lamblia Not Detected (Not Detect.); Norovirus GI/GII Not Detected (Not Detect.); Plesiomonas shigelloides Not Detected (Not Detect.); Rotavirus A Not Detected (Not Detect.); Salmonella Not Detected (Not Detect.); Sapovirus Not Detected (Not Detect.); Shigella sp./EIEC Not Detected (Not Detect.); Vibrio Not Detected (Not Detect.); Vibrio Cholerae Not Detected (Not Detect.); Yersinia enterocolitica Not Detected (Not Detect.)
== END 2023-12-01 12:38 | disposition home or self-care (01) ==
LOC: HO.LNP 12:37
PROVIDERS: Visit Provider Nurse Practitioner
DX: R19.7 Diarrhea, unspecified (principal)
CPT/HCPCS: 87493; 87507

== ENCOUNTER 2023-12-05 10:56 | Outpatient (REF) | payer MEDICAID, SELFPAY ==
[2023-12-05 11:05] LABS: MANUAL DIFF FLAG NO
[2023-12-05 11:30] LABS: Basophils Percent Auto 0.3 % (0-2); Eosinophils Absolute Auto 0.1 X10*3/uL (0.0-0.4); Eosinophils Percent Auto 1.3 % (0-4); Hematocrit 43.9 % (37.0-47.0); Hemoglobin 14.3 g/dl (12.0-16.0); Imm Gran Abs Auto 0.03 X10*3/uL (0.00-0.03); Imm Gran Pct Auto 0.4 % (0.0-0.4); Lymphocytes Percent Auto 43.3 % (20-40); Mean Corpuscular HGB Conc 32.6 g/dl (31.0-35.0); Mean Platelet Volume 11.3 fL (9.4-12.3); Monocytes Absolute Auto 0.6 X10*3/uL (0.1-1.2); Monocytes Percent Auto 8.8 % (2-11); Neutrophils Absolute Auto 3.2 x10*3/uL (2.0-8.3); Neutrophils Percent Auto 45.9 % (45-73); Platelet Count 179 X10*3/uL (160-400); Red Blood Count 4.77 X10*6/uL (4.20-5.50); Red Cell Distribution Width 13.6 % (11.0-16.0); White Blood Count 6.9 X10*3/uL (4.8-10.8)
[2023-12-05 11:42] LABS: Estimated Average Glucose 192 mg/dL; Hemoglobin A1c % 8.3 % (<6.0)
[2023-12-05 11:56] LABS: Alanine Aminotransferase 25 U/L (0-31); Albumin Level 4.2 g/dL (3.5-5.0); Alkaline Phosphatase 104 U/L (39-117); Anion Gap 9 (12-20); Aspartate Amino Transferase 19 U/L (5-31); Bilirubin Total 0.4 mg/dL (0.0-1.0); Blood Urea Nitrogen 5 mg/dL (9-16); Calcium 9.6 mg/dL (8.4-10.2); Carbon Dioxide 31 mmol/L (22-29); Chloride 105 mmol/L (96-108); Estimated Glomerular Filt Rate > 60; Glucose Random 149 mg/dL (60-115); Potassium 4.2 mmol/L (3.3-5.1); Sodium 141 mmol/L (135-145); Total Protein 7.2 g/dL (6.5-8.0)
== END 2023-12-05 10:57 | disposition home or self-care (01) ==
LOC: HO.LAB 10:56
PROVIDERS: PCP Internal Medicine; Visit Provider Internal Medicine
DX: E11.9 Type 2 diabetes mellitus without complications (principal); K21.9 Gastro-esophageal reflux disease without esophagitis; R10.9 Unspecified abdominal pain; R19.7 Diarrhea, unspecified
CPT/HCPCS: 36415; 80053; 83036; 85025

== ENCOUNTER 2024-04-02 10:22 | Outpatient (REF) | payer MEDICAID, SELFPAY ==
[2024-04-02 10:59] LABS: Estimated Average Glucose 232 mg/dL; Hemoglobin A1c % 9.7 % (<6.0)
[2024-04-02 11:20] LABS: Alanine Aminotransferase 20 U/L (0-31); Albumin Level 4.4 g/dL (3.5-5.0); Alkaline Phosphatase 118 U/L (39-117); Anion Gap 13 (12-20); Aspartate Amino Transferase 16 U/L (5-31); Bilirubin Total 0.4 mg/dL (0.0-1.0); Blood Urea Nitrogen 9 mg/dL (9-16); Calcium 10.1 mg/dL (8.4-10.2); Carbon Dioxide 28 mmol/L (22-29); Chloride 100 mmol/L (96-108); Estimated Glomerular Filt Rate > 60; Glucose Random 284 mg/dL (60-115); Potassium 4.3 mmol/L (3.3-5.1); Sodium 137 mmol/L (135-145); Total Protein 7.2 g/dL (6.5-8.0)
== END 2024-04-02 10:23 | disposition home or self-care (01) ==
LOC: HO.LAB 10:22
PROVIDERS: PCP Internal Medicine; Visit Provider Internal Medicine
DX: I10 Essential (primary) hypertension (principal); R80.8 Other proteinuria; E11.65 Type 2 diabetes mellitus with hyperglycemia
CPT/HCPCS: 36415; 80053; 83036

== ENCOUNTER 2024-04-03 10:23 | Outpatient (AMB) | payer MEDICAID, SELFPAY ==
[2024-04-03 10:24] VITALS: BP 116/72; PULSE 83; BMI 35.1
--- NOTE | 2024-04-03 10:24 | MHC.OFFVIS ---
Vital Signs 04/03/24 10:24 Height 5 ft 4 in Weight 204 lb 9.423 oz BMI 35.1 BP 116/72 Blood Pressure Location Lt brachial Position Sitting Pulse 83 Intake Visit Reasons: abdominal pain Intake Note: Isatu presents to in office visit today in follow up labs and abdominal pain. CC: Patient states that she continues to have abdominal pain she states that the pain now is mostly from RUQ abdomen. She states that she gets nauseous and acid reflux sometimes. Patient states that she feels like she can't chew her foods well d/t her denture and sometimes she chokes. 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 She is fearful to eat r/t this increases the pain. The diarrhea is post prandial. Then the pain also will start on the sides of her abdomen, following the path of the colon and worse if she lays on her side on the contralateral side. Her abd feels bloated and tight with throbbing and cramping. The pain is 9/10 and will subside after a time with periods of pain free if she does not eat. She bought some fish and this seems to have triggered the problem and worsens it. She stopped her bisacodyl as is reasonable but continues on her famotidine. She has nausea and acid brash with only bilious emesis. She had no fevers, no known sick contacts, no medication changes, no diet changes. Return office visit in 3 weeks. Orders: Orders GI Panel Today R19.7 - Diarrhea, unspecified CDiff Gene PCR Today R19.7 - Diarrhea, unspecified C Reactive Protein Today R19.7 - Diarrhea, unspecified LABS: Laboratory Tests 12/01/23 11:20 C. difficile Tox B Gene NEGATIVE 12/01/23-[address] [facility] [address]: Yoselyn Ware MD ORDERED: GI Panel Test Result Flag Reference Campylobacter Not Detected Not Detect. P. shigelloides Not Detected Not Detect. Salmonella Not Detected Not Detect. Vibrio Not Detected Not Detect. Vibrio Cholerae Not Detected Not Detect. Y. enterocolit. Not Detected Not Detect. E. coli EAEC Not Detected Not Detect. E. coli EPEC Not Detected Not Detect. E. coli ETEC Not Detected Not Detect. E. coli STEC Not Detected Not Detect. E. coli O157 Not applicable Not Detect. E. coli containing the O157 antigen are a subset of Shiga-like toxin-producing E. coli (STEC). Shigella/EIEC Not Detected Not Detect. Cryptosporidium Not Detected Not Detect. Cyclospora Not Detected Not Detect. E. histolytica Not Detected Not Detect. Giardia lamblia Not Detected Not Detect. Adenovirus Not Detected Not Detect. Astrovirus Not Detected Not Detect. Norovirus Not Detected Not Detect. Rotavirus A Not Detected Not Detect. Sapovirus Not Detected Not Detect. All results must be correlated with clinical findings TODAY'S VISIT She is due fro repeat colonoscopy sometime between now and 2025. Her diarrhea has resolved, but she has right sided abd pain that remains since the diarrhea. At times it spreads to the middle abd to left side and she feels gas trapping in the RUQ. It comes and goes and is 6/10 but it is bearable. The pain will start about 1/2 hour after eating and will be accompanied by severe regurgitation. It will persist for 2-4 hours and is colicky. She can not relate it to many types of foods eaten, but she does note it with more fatty sauces/gravy and foods. She complains that she can not chew her food well with her dentures. She notes that larger pieces of meat are hard to swallow and she does better if she cuts it into smaller pieced - so this could be r/t her chewing and dentures. Will get US of GB and trial of simethicone. She continues on her famotidine twice a day and she feels this is enough control her heartburn. ROV after US [facility] Medical History (Updated 04/03/24 @ 11:02 by HARVEY Jane) Acute diarrhea History of COVID-19 Diabetes Elevated cholesterol HTN (hypertension) GERD (gastroesophageal reflux disease) Surgical History History of esophagogastroduodenoscopy (EGD) Hx of section Hx of tooth extraction Hx of colonoscopy Hx of tubal ligation Family History Father HTN (hypertension) Mother Hypothyroidism Social History Alcohol intake: never Patient Tobacco Use Status: Current everyday Tobacco user Cigarettes Per Day: 7 Years Smoked: 35 Current occupational status: employed 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, 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 Review of Systems Const Denies fatigue, Denies fever(s), Denies night sweats, Denies poor appetite and Denies weight loss Eyes Details: glasses Reports requires corrective lenses ENT Reports Normal hearing present, Denies dental pain, Reports dysphagia, Denies hearing loss, Denies mouth pain, Denies odynophagia, Denies throat swelling, Denies tongue swelling and Reports other (Dentition adequate) Card Reports no additional complaints Resp Reports no additional complaints GI Details: Reports abdominal pain, Denies melena, Reports bloating, Denies hematochezia, Denies constipation, Denies GI cramping, Reports dysphagia, Denies excessive flatus, Denies early satiety, Reports heartburn, Denies diarrhea, Denies nausea, Denies odynophagia, Denies vomiting and Denies hematemesis Skin/Breast Denies pruritus, Denies lesions, Denies rash and Denies jaundice Neuro Reports Normal hearing present and Denies Abnormal speech present Endo Denies fatigue Aller/Immun Denies throat swelling and Denies tongue swelling Physical Exam Vital Signs: Last Vital Signs Pulse 83 04/03/24 10:24 BP 116/72 04/03/24 10:24 BMI result Body Mass Index 35.1 Const General: cooperative, no acute distress, well developed and well groomed Nutritional Appearance: well nourished and obese Orientation/consciousness: oriented to person, oriented to place and oriented to time Limitations: No language barrier HEENT Head: Yes normocephalic and Yes atraumatic Eyes General: appearance normal, both eyes and all related structures Pupils: Equal, round and reactive pupils present Neck Neck: Yes normal visual inspection and Yes no lymphadenopathy Thyroid: Thyroid normal Resp Effort & Inspection: normal respiratory effort and able to speak in complete sentences Auscultation: clear to auscultation bilaterally Cardio Rate: regular rate Rhythm: regular rhythm Heart sounds: Normal, physiologic split S2 sound present Peripheral pulses: radial pulses present and posterior tibial pulses present GI Inspection: No distended, No Abdominal panniculus present and Yes obesity Palpation (GI): Soft to palpation, nontender, no guarding, not rigid and No hepatosplenomegaly present Percussion: Yes normal to percussion Auscultation: normal bowel sounds Rectal Exam - Female: deferred Skin General skin exam: no rashes or lesions noted, turgor normal, skin not dry, no jaundice, No spider nevi and no striae Rashes: no rashes Nails: normal Neuro General: oriented to person, oriented to place and oriented to time Cranial nerves: Yes Equal, round and reactive pupils present and Yes Normal hearing present Speech: No Abnormal speech present Extrem General: Yes normal to inspection, No clubbing, No cyanosis and No edema Psych Appearance: grossly normal and well kempt Mental Status: mental status grossly normal Speech and movement: Normal speech and movement present Affect: normal affect Attitude: cooperative Thought process: Normal thought process present and not confabulating Thought content: Normal thought content present Insight: Limited insight present (Psych) Judgement: Limited judgement present (Psych) Results Reviewed Results Reviewed: Laboratory Tests 12/01/23 11:20 C. difficile Tox B Gene NEGATIVE 12/01/23-[address]: Yoselyn Ware MD ORDERED: GI Panel Test Result Flag Reference Campylobacter Not Detected Not Detect. P. shigelloides Not Detected Not Detect. Salmonella Not Detected Not Detect. Vibrio Not Detected Not Detect. Vibrio Cholerae Not Detected Not Detect. Y. enterocolit. Not Detected Not Detect. E. coli EAEC Not Detected Not Detect. E. coli EPEC Not Detected Not Detect. E. coli ETEC Not Detected Not Detect. E. coli STEC Not Detected Not Detect. E. coli O157 Not applicable Not Detect. E. coli containing the O157 antigen are a subset of Shiga-like toxin-producing E. coli (STEC). Shigella/EIEC Not Detected Not Detect. Cryptosporidium Not Detected Not Detect. Cyclospora Not Detected Not Detect. E. histolytica Not Detected Not Detect. Giardia lamblia Not Detected Not Detect. Adenovirus Not Detected Not Detect. Astrovirus Not Detected Not Detect. Norovirus Not Detected Not Detect. Rotavirus A Not Detected Not Detect. Sapovirus Not Detected Not Detect. All results must be correlated with clinical findings Assessment & Plan Assessment & Plan (1) RUQ abdominal pain: Code(s): R10.11 - Right upper quadrant pain Category: Medical (2) Acute diarrhea: Comment: Resolved without any explanation all stool studies and tests were negative Code(s): R19.7 - Diarrhea, unspecified Category: Medical (3) GERD (gastroesophageal reflux disease): Code(s): K21.9 - Gastro-esophageal reflux disease without esophagitis Category: Medical (4) Constipation: Code(s): K59.00 - Constipation, unspecified Category: Medical Plan She is due for repeat colonoscopy sometime between now and 2025. Her diarrhea has resolved, but she has right sided abd pain that remains since the diarrhea. At times it spreads to the middle abd to left side and she feels gas trapping in the RUQ. It comes and goes and is 6/10 but it is bearable. The pain will start about 1/2 hour after eating and will be accompanied by severe regurgitation. It will persist for 2-4 hours and is colicky. She can not relate it to many types of foods eaten, but she does note it with more fatty sauces/gravy and foods. She complains that she can not chew her food well with her dentures. She notes that larger pieces of meat are hard to swallow and she does better if she cuts it into smaller pieces - so this could be r/t her chewing and dentures. Will get US of GB and trial of simethicone. She continues on her famotidine twice a day and she feels this is enough control her heartburn. ROV after US Orders: Orders US abdomen complete Today R10.11 - Right upper quadrant pain Medications: New simethicone after meals 180 mg PO QID 120 caps 3RF 30 days Coding Level of Care Code Est Pt Level 3 (40105) Diagnoses RUQ abdominal pain R10.11 Acute diarrhea R19.7 GERD (gastroesophageal reflux disease) K21.9 Constipation K59.00
== END 2024-04-03 11:29 | disposition home or self-care (01) ==
PROVIDERS: PCP Internal Medicine; Visit Provider Nurse Practitioner
DX: R10.11 Right upper quadrant pain (principal); R19.7 Diarrhea, unspecified; K21.9 Gastro-esophageal reflux disease without esophagitis; K59.00 Constipation, unspecified
CPT/HCPCS: 99213

== ENCOUNTER → 2024-04-03 10:23 | Outpatient (BNVA) | payer MEDICAID, SELFPAY | PROVIDERS: PCP Internal Medicine; Visit Provider Nurse Practitioner | DX: K59.00 Constipation, unspecified (principal); K21.9 Gastro-esophageal reflux disease without esophagitis; R10.11 Right upper quadrant pain; R19.7 Diarrhea, unspecified | CPT/HCPCS: 99212 ==

== ENCOUNTER 2024-04-10 08:06 | Outpatient (REF) | payer MEDICAID, SELFPAY ==
--- NOTE | ~2024-04-10 | US_ITS ---
EXAMINATION: US ABDOMEN COMPLETE CLINICAL INFORMATION: Right upper quadrant pain. COMPARISON: Ultrasound abdomen 09/09/2019 and 01/05/2017. X-ray abdomen KUB 06/25/2019. TECHNIQUE: Real-time imaging of the abdominal viscera. Limited visualization due to bowel gas. FINDINGS: PANCREAS: Limited visualization of pancreatic tail and head. Imaged portion of pancreatic body is unremarkable. ABDOMINAL AORTA: The proximal, mid, and distal segments are normal in caliber. INFERIOR VENA CAVA: Visualized portions are normal. LIVER: Increased hepatic parenchymal heterogeneity and echogenicity could be associated with hepatocellular disease/hepatic steatosis and substantially limits visualization. Correlation with liver function tests and clinical exam recommended to determine further management. 2.8 x 1.1 x 1.6 cm echogenic lesion in the left hepatic lobe. Differential considerations include hemangioma, focal fatty sparing or mass. MRI with gadolinium recommended for further evaluation. GALLBLADDER: No gallstones. No gallbladder wall thickening. COMMON BILE DUCT: Normal in caliber measuring 0.4 cm in diameter. RIGHT KIDNEY: No hydronephrosis. No renal calculi. Limited visualization. The kidney measures 12.3 cm in maximum dimension. LEFT KIDNEY: No hydronephrosis. No renal calculi. Limited visualization. The kidney measures 13.0 cm in maximum dimension. SPLEEN: Normal. The spleen measures 9.4 cm in maximum dimension. FREE FLUID: None. US/US abdomen complete IMPRESSION: 1. Increased hepatic parenchymal heterogeneity and echogenicity could be associated with hepatocellular disease/hepatic steatosis and substantially limits visualization. Correlation with liver function tests and clinical exam recommended to determine further management. 2. A 2.8 cm echogenic lesion in the left hepatic lobe. Differential considerations include hemangioma, focal fatty sparing or mass. MRI with gadolinium recommended for further evaluation.
== END 2024-04-10 08:07 | disposition home or self-care (01) ==
LOC: HO.US 08:06
PROVIDERS: PCP Internal Medicine; Visit Provider Nurse Practitioner
DX: R10.11 Right upper quadrant pain (principal)
CPT/HCPCS: 76700

== ENCOUNTER 2024-06-21 09:02 | Outpatient (REF) | payer MEDICAID, SELFPAY ==
[2024-06-21 09:23] LABS: MANUAL DIFF FLAG NO
[2024-06-21 09:43] LABS: Basophils Percent Auto 0.6 % (0-2); Eosinophils Absolute Auto 0.1 X10*3/uL (0.0-0.4); Eosinophils Percent Auto 1.3 % (0-4); Hematocrit 43.4 % (37.0-47.0); Hemoglobin 14.1 g/dl (12.0-16.0); Imm Gran Abs Auto 0.02 X10*3/uL (0.00-0.03); Imm Gran Pct Auto 0.3 % (0.0-0.4); Lymphocytes Percent Auto 41.8 % (20-40); Mean Corpuscular HGB Conc 32.5 g/dl (31.0-35.0); Mean Corpuscular Volume 92.3 fL (80.0-98.0); Mean Platelet Volume 11.2 fL (9.4-12.3); Monocytes Absolute Auto 0.5 X10*3/uL (0.1-1.2); Monocytes Percent Auto 7.4 % (2-11); Neutrophils Absolute Auto 3.4 x10*3/uL (2.0-8.3); Neutrophils Percent Auto 48.6 % (45-73); Platelet Count 169 X10*3/uL (160-400); Red Cell Distribution Width 13.6 % (11.0-16.0); White Blood Count 7.1 X10*3/uL (4.8-10.8)
[2024-06-21 10:25] LABS: Creatinine Urine 156.69 mg/dL; Microalbum/Creatinine Ratio Ur 8.2 ug/mg cr (<30)
[2024-06-21 10:29] LABS: Alanine Aminotransferase 19 U/L (0-31); Albumin Level 4.1 g/dL (3.5-5.0); Alkaline Phosphatase 118 U/L (39-117); Anion Gap 11 (12-20); Aspartate Amino Transferase 15 U/L (5-31); Bilirubin Total 0.4 mg/dL (0.0-1.0); Blood Urea Nitrogen 9 mg/dL (9-16); Carbon Dioxide 30 mmol/L (22-29); Chloride 104 mmol/L (96-108); Cholesterol 125 mg/dL (<200); Estimated Glomerular Filt Rate > 60; Glucose Random 260 mg/dL (60-115); HDL Cholesterol 52 mg/dL (>40); LDL Cholesterol Calculated 55 mg/dL (<100); Potassium 4.4 mmol/L (3.3-5.1); Sodium 141 mmol/L (135-145); Total Protein 6.7 g/dL (6.5-8.0); Triglycerides 93 mg/dL (<150)
[2024-06-21 10:30] LABS: Thyroid Stimulating Hormone 0.91 uIU/mL (0.32-4.0)
[2024-06-21 10:42] LABS: Vitamin B12 349 pg/mL (200-900)
[2024-06-21 10:58] LABS: Estimated Average Glucose 229 mg/dL; Hemoglobin A1C 294.5891 umol/L; Hemoglobin A1c % 9.6 % (<6.0); Total Hemoglobin (HGBA1C) 3595.1001 umol/L
== END 2024-06-21 09:03 | disposition home or self-care (01) ==
LOC: HO.LAB 09:02
PROVIDERS: PCP Internal Medicine; Visit Provider Internal Medicine
DX: E11.65 Type 2 diabetes mellitus with hyperglycemia (principal); E78.00 Pure hypercholesterolemia, unspecified; I10 Essential (primary) hypertension; R10.811 Right upper quadrant abdominal tenderness
CPT/HCPCS: 36415; 80053; 80061; 82043; 82570; 82607; 83036; 84443; 85025

== ENCOUNTER 2024-07-04 12:26 | Outpatient (REF) | payer MEDICAID, SELFPAY ==
--- NOTE | ~2024-07-04 | MM_ITS ---
EXAMINATION: MM SCREENING DIGITAL BREAST TOMOSYNTHESIS, BILATERAL CLINICAL INFORMATION: Screening. Asymptomatic. COMPARISON: Mammography: Comparison is made with available priors TECHNIQUE: Digital breast mammography with tomosynthesis is performed in both the craniocaudal and mediolateral oblique views along with computer-aided detection (CAD). FINDINGS: There are scattered areas of fibroglandular density (ACR BI-RADS breast composition Category b). There are no significant masses, abnormal calcifications, or other abnormalities. MM/MM tomosynthesis screening BI IMPRESSION: No mammographic evidence of malignancy. ASSESSMENT: BI-RADS BI-RADS 1 - Negative RECOMMENDATION: Routine annual mammography screening. 1 year F/U This examination should not preclude the clinical evaluation of a suspicious palpable abnormality. This patient's information was entered into a reminder system with a target due date for their next mammogram. Electronically signed by: Mecca Murray DO 07/12/2024 10:16 AM [facility]
== END 2024-07-04 12:27 | disposition home or self-care (01) ==
LOC: HO.MAMMO 12:26
PROVIDERS: PCP Internal Medicine; Visit Provider Internal Medicine
DX: Z12.31 Encounter for screening mammogram for malignant neoplasm of breast (principal)
CPT/HCPCS: 77063; 77067

== ENCOUNTER → 2024-07-04 12:45 | Outpatient (BNV) | payer MEDICAID, SELFPAY | PROVIDERS: PCP Internal Medicine; Visit Provider Internal Medicine | DX: Z12.31 Encounter for screening mammogram for malignant neoplasm of breast (principal) | CPT/HCPCS: 77063; 77067 ==

== ENCOUNTER 2024-11-15 15:58 | Emergency (ER) | payer MEDICAID, SELFPAY ==
[2024-11-15 16:28] VITALS: BP 130/58; PULSE 91; RESP 18; TEMP 36.3; O2SAT 97; BMI 35.6
--- NOTE | 2024-11-15 16:28 | ED.GENADULT ---
HPI - General Adult General Chief complaint: General Medical Stated complaint: sharp pain on thighs shooting up Time Seen by Provider: 11/15/24 21:14 Source: patient Mode of arrival: ambulatory Limitations: no limitations History of Present Illness ED Provider: HPI narrative: Patient has longstanding rash in the groin area comes here for same not using any cream has not seen her PCP for this problem Related Data Home Medications ?Medication ?Instructions ?Recorded ?Confirmed metformin 1,000 mg tablet 1,000 mg PO BID 11/04/20 11/04/20 aspirin 81 mg tablet,delayed 81 mg PO DAILY 06/10/21 08/12/21 release atorvastatin 80 mg tablet 80 mg PO BEDTIME 07/19/22 glipizide 5 mg tablet, extended 5 mg PO DAILY 07/19/22 release 24 hr dulaglutide 3 mg/0.5 mL mg subcut QWEEK 11/30/23 subcutaneous pen injector (Trulicity) empagliflozin 25 mg tablet 25 mg PO DAILY 11/30/23 (Jardiance) lisinopril 20 mg tablet 20 mg PO DAILY 11/30/23 Previous Rx's ?Medication ?Instructions ?Recorded cyclobenzaprine 5 mg tablet 5 mg PO TID PRN muscle spasm #14 01/20/22 tabs diazepam 2 mg tablet (Valium) 2 mg PO BID PRN muscle spasm #8 09/06/22 tabs naproxen 500 mg tablet 500 mg PO BID PRN pain 30 days #60 09/30/22 tabs bisacodyl 5 mg tablet,delayed 10 mg (2 x 5 mg) PO BEDTIME 30 10/07/22 release (Dulcolax (bisacodyl)) days #60 tabs simethicone 180 mg capsule 180 mg PO QID 30 days #120 caps 04/03/24 famotidine 40 mg tablet 40 mg PO BID #180 tabs 08/30/24 nystatin 100,000 unit/gram topical 1 appl topical BID #60 grams 11/15/24 powder Allergies Allergy/AdvReac Type Severity Reaction Status Date / Time No Known Allergies Allergy Verified 11/15/24 16:32 [No Known Allergies*] Review of Systems Review of Systems: Yes all other systems are reviewed and are negative PMFSH Past Medical History Medical History Acute diarrhea History of COVID-19 Diabetes Elevated cholesterol HTN (hypertension) GERD (gastroesophageal reflux disease) Surgical History History of esophagogastroduodenoscopy (EGD) Hx of section Hx of tooth extraction Hx of colonoscopy Hx of tubal ligation Family History Family History Father HTN (hypertension) Mother Hypothyroidism Social History Social History Alcohol intake: never Patient Tobacco Use Status: Current everyday Tobacco user Cigarettes Per Day: 7 Years Smoked: 35 Smoked in Last 30 Days: No Use of substances other than those prescribed or required for medical reasons: No Advance Directives: No Advance Directives Information Provided: No Do you have a plan to hurt others: No Plan Current occupational status: employed 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 Oriented X3. No acute distress. Eyes: PERRLA, No Nystagmus ENT: Pharynx normal. Oral Mucosa moist Neck: Normal inspection. Neck supple. CVS: Normal heart rate and rhythm. Pulses normal. Respiratory: No respiratory distress. Equal air entry bilateral, no wheezing/rales/rhonchi Abdomen: Soft and nontender. Bowel sounds are present, no mass palpable, no CVA tenderness Skin: Skin warm and dry. Normal skin color. Normal skin turgor. Intertrigo rash bilateral groin area Extremities: No lower extremity edema. No calf tenderness Neuro: Oriented X 3. No motor deficit. Course Course Course Narrative: This is a rapid medical exam performed by Bonnie Gaytan NP: Additional HPI, ROS, PE not included below will be deferred to primary provider. Patient is a 53-year-old female with history of GERD, dysphagia presenting to the ED with complaint of pruritic rash to groin and upper thighs x 2 weeks. Tried several OTC treatment but states symptoms are getting worse. Denies fevers. Unable to visualize in triage due to privacy concerns. Medications Administered Discontinued Medications Generic Name Dose Route Start Last Admin Trade Name Freq PRN Reason Stop Dose Admin Fluconazole 150 mg 11/15/24 21:52 11/15/24 21:56 Fluconazole 150 Mg Tablet PO 11/15/24 21:53 150 mg ONCE ONE Administration Nystatin 1 appl 11/15/24 21:42 11/15/24 21:53 Nystatin Powder 15 Gm Bottle TOPICAL 11/15/24 21:43 1 appl ONCE ONE Administration Protocol Medical Decision Making Medical Decision Making [facility] Narrative: Patient with intertrigo rash bilateral groin area will prescribe nystatin powder Discharge Plan Discharge Clinical Impression: Candidal intertrigo Patient Disposition: Home, Self-Care Instructions: Skin Yeast Infection (ED) Additional Instructions: Your yeast infection of the skin of the groin area Keep the area dry and use powder twice a day until heals completely Prescriptions: New nystatin 100,000 unit/gram powder 1 appl topical BID Qty: 60 0RF No Action famotidine 40 mg tablet 40 mg PO BID Qty: 180 2RF diazepam [Valium] 2 mg tablet 2 mg PO BID PRN (Reason: muscle spasm) Qty: 8 0RF cyclobenzaprine 5 mg tablet 5 mg PO TID PRN (Reason: muscle spasm) Qty: 14 0RF metformin 1,000 mg tablet 1,000 mg PO BID aspirin 81 mg tablet,delayed release (DR/EC) 81 mg PO DAILY naproxen 500 mg tablet 500 mg PO BID PRN (Reason: pain) 30 Days Qty: 60 3RF glipizide 5 mg tablet extended release 24hr 5 mg PO DAILY atorvastatin 80 mg tablet 80 mg PO BEDTIME bisacodyl [Dulcolax (bisacodyl)] 5 mg tablet,delayed release (DR/EC) 10 mg PO BEDTIME 30 Days Qty: 60 6RF Trulicity 3 mg/0.5 mL pen injector subcut QWEEK lisinopril 20 mg tablet 20 mg PO DAILY Jardiance 25 mg tablet 25 mg PO DAILY simethicone 180 mg capsule 180 mg PO QID 30 Days Qty: 120 3RF Rx Instructions: after meals Interventions: ED Discharge Assessment Last Done: 11/15/24 22:01 Discharge Date/Time: 11/15/24 22:02 Print Language: Cameroonian
[2024-11-15 20:07] VITALS: BP 124/74; PULSE 83; RESP 16; TEMP 36.7; O2SAT 99
--- NOTE | 2024-11-15 20:16 | PC.NURSE ---
pt a&o, complaining of groin rash, burring and itching, pt report pain level of 7/10. pt awaiting to see a provider.
--- NOTE | 2024-11-15 21:43 | PC.NURSE ---
Provider at the bedside assessing pt.
[2024-11-15 21:49] VITALS: BP 128/74; PULSE 68; RESP 16; TEMP 37.1; O2SAT 98
[2024-11-15] MEDS: Nystatin Powder 15 GM BOTTLE 1 APPL TOPICAL (21:53)
[2024-11-15] MEDS: Fluconazole 150 MG TABLET PO (21:56)
--- NOTE | 2024-11-15 21:59 | PC.NURSE ---
pt medicated per nov, reviewed discharge paper with pt, pt verbalized understanding, no sign of distress upon discharge. pt had a steady gait.
[2024-11-15 22:01] VITALS: BP 128/74; PULSE 68; RESP 16; TEMP 37.1; O2SAT 98
== END 2024-11-15 22:02 | disposition home or self-care (01) ==
PROVIDERS: Emergency Provider Internal Medicine; PCP Internal Medicine
DX: L30.4 Erythema intertrigo (principal); E11.9 Type 2 diabetes mellitus without complications; Z79.4 Long term (current) use of insulin; Z79.899 Other long term (current) drug therapy
CPT/HCPCS: 99283; 99284

== ENCOUNTER 2024-12-09 12:17 | Outpatient (REF) | payer MEDICAID, SELFPAY ==
[2024-12-09 13:34] LABS: Hemoglobin A1c % > 14.0 % (<6.0); Total Hemoglobin (HGBA1C) 3938.3094 umol/L
[2024-12-09 14:18] LABS: Alanine Aminotransferase 18 U/L (0-31); Albumin Level 4.3 g/dL (3.5-5.0); Alkaline Phosphatase 132 U/L (39-117); Anion Gap 12 (12-20); Aspartate Amino Transferase 18 U/L (5-31); Bilirubin Total 0.3 mg/dL (0.0-1.0); Blood Urea Nitrogen 7 mg/dL (9-16); Calcium 9.6 mg/dL (8.4-10.2); Carbon Dioxide 25 mmol/L (22-29); Chloride 104 mmol/L (96-108); Estimated Glomerular Filt Rate > 60; Glucose Random 321 mg/dL (60-115); Potassium 4.1 mmol/L (3.3-5.1); Sodium 137 mmol/L (135-145)
--- OUTSIDE RECORDS SUMMARY | 2024-12-09 14:38 | XMS_ITS | Clinical Summary ---
Author Organization [employer] Address [address] [facility] [address] [place] [address] Care Team Providers Care Rig Manager Name Role Phone Unavailable Primary Care Provider Unavailabl e Allergies No known active allergies Medications No known medications Active Problems No known active problems Encounters Date Type Department Care Team Description 11/15/2024 Travel from Last 3 Months Social History Tobacco Use Types Packs/Day Years Used Date Smoking Tobacco: Never Assessed Comments Unknown Sex and Gender Information Value Date Recorded Sex Assigned at Female 11/15/2024 10:56 AM EDT Legal Sex Female 3:40 PM EST Gender Identity Female 11/15/2024 10:56 AM EDT Sexual Orientation Choose not to disclose 2024 10:56 AM EDT Last Filed Vital Signs Vital Sign Reading Time Taken Comments Blood Pressure 128/74 11/15/2024 11:28 AM EDT Pulse 85 11/15/2024 11:28 AM EDT Temperature 36.6 ??C (97.9 ??F) 11/15/2024 11:28 AM E DT Respiratory Rate 17 11/15/2024 11:28 AM EDT Oxygen Saturation 98% 11/15/2024 11:28 AM EDT Inhaled Oxygen Concentration - - Weight 94.8 kg (209 lb) 11/15/2024 11:28 AM EDT Height - - Body Mass Index - - Plan of Treatment Health Maintenance Due Date Last Done Comments CT Colonography 1968 Colonoscopy 1968 Colorectal Cancer Screening 1968 Depression Screening 1968 FIT DNA/Cologuard 1968 FIT 1968 FOBT 1968 HIV Screening 1968 SDOH Screening 1968 Sigmoidoscopy 1968 Alcohol/Substance Use Screening 1980 Tobacco Screening 1980 Hepatitis C Screening 1986 DTaP/Tdap/Td Vaccines (1 - Tdap) 11/21/1987 Hepatitis B Vaccines (1 of 3 - 19+ 3-dose series) 11/21/1987 Pap Smear 1989 Cervical Cancer Screening 1998 HPV/Cotest 1998 Mammogram 2008 Pneumococcal Vaccine: 50+ Ye ars (1 of 1 - PCV) 2018 Zoster Vaccines (1 of 2) 2018 COVID-19 Vaccine ( - 2023-2 5 season) 2024 Influenza Vaccine (#1) 2024 RSV Patients and Pa tients Aged 60 years or older (1 - 1-dose 75+ series) 11/21/2043 HIB Vaccines Aged Out No longer eligi ble based on patient's age to complete this topic HPV Vaccines Aged Out No longer eligi ble based on patient's age to complete this topic Hepatitis A Vaccines Aged Out No long er eligible based on patient's age to complete this topic IPV Vaccines Aged Out No longer eligi ble based on patient's age to complete this topic Meningococcal Vaccine Aged Out No bernadette tarik eligible based on patient's age to complete this topic RSV under 20 months Aged Out No longe r eligible based on patient's age to complete this topic Rotavirus Vaccines Aged Out No longer eligible based on patient's age to complete this topic Insurance STANDARD
--- OUTSIDE RECORDS SUMMARY | 2024-12-09 14:38 | XMS_ITS | Clinical Summary ---
Author Organization [address] [facility] Address [address] [place] [address] Phone Care Team Providers Care Switch Inspector Name Role Phone Yoselyn Ware MD Primary Care Provider [phone] Allergies No known active allergies Medications aspirin 81 mg EC tablet Take 1 tablet (81 mg total) by mouth 1 (one) time each day. Active atorvastatin (LIPITOR) 80 mg tablet Take 1 tablet (80 mg total) by mouth at bedtime. Active famotidine (PEPCID) 40 mg tablet Take by mouth. Activ e glipiZIDE (GLUCOTROL XL) 5 mg 24 hr tablet Take 1 tablet (5 mg total) by mouth 1 (one) time each day. Do not crush, chew, or split. Active empagliflozin (Jardiance) 25 mg tablet Take 1 tablet (25 mg total) by mouth 1 (one) time each day. Active lisinopril-hydr oCHLOROthiazide (PRINZIDE,ZESTO RETIC) 20-12.5 mg per tablet Take 1 tablet by mouth 1 (one) time each day. Active metFORMIN (FORTAMET) 1,000 mg 24 hr tablet Take 1 tablet (1,000 mg total) by mouth 1 (one) time each day with dinner. Do not crush, chew, or split. Active dulaglutide (TRULICITY) 0.75 mg/0.5 mL pen injector injection Inject 0.5 mL (0.75 mg total) under the skin every 7 (seven) days. Active ammonium lactate (AmLactin) 12 % lotion Apply topically if needed for dry skin. 400 g 2 4 07/23/20 25 Active ketoconazole (NIZORAL) 2 % cream Apply topically 1 (one) time each day. 100 g 1 Active Medical History Medical History Date Comments GERD (gastroesophageal reflux disease) Diabetes mellitus (CMS/HCC) H/O section Social History Tobacco Use Types Packs/Day Years Used Date Smoking Tobacco: Never Assessed Comments Unknown Sex and Gender Information Value Date Recorded Sex Assigned at Not on file Legal Sex Female 9:06 AM EST Gender Identity Not on file Sexual Orientation Not on file Obstetrics History Last Filed Vital Signs Vital Sign Reading Time Taken Comments Blood Pressure - - Pulse - - Temperature - - Respiratory Rate - - Oxygen Saturation - - Inhaled Oxygen Concentration - - Weight 99.8 kg (220 lb) 07/23/2024 10:21 AM EST Height 162.6 cm (5' 4 ) 07/23/2024 10:21 AM EST Body Mass Index 37.76 07/23/2024 10:21 AM EST Plan of Treatment Health Maintenance Due Date Last Done Comments Breast Cancer Screening 1968 COVID-19 Vaccine (#1) 1973 DTaP,Tdap,and Td Vaccines (1 - Tdap) 11/21/1987 Hepatitis B Vaccines (1 of 3 - 19+ 3-dose series) 11/21/1987 Pneumococcal Vaccine: 50+ Ye ars (1 of 2 - PCV) 11/21/1987 Pneumococcal Vaccine: Pediat rics (0 to 5 Years) and At-Risk Patients (6 to 64 Years) (1 of 2 - PCV) 11/21/1987 Zoster Vaccines (1 of 2) 11/21/1987 Cervical Cancer Screening: P ap Smear 1989 Influenza Vaccine (#1) 2024 Colorectal Cancer Screening: Colonoscopy 07/15/2024 Depression Screening 07/15/2024 HIV Screening 07/15/2024 Hepatitis C Screening 07/15/2024 Social Influencers of Health Screening 07/15/2024 HIB Vaccines Aged Out No longer eligi [...] on patient's age to complete this topic MMR Vaccines Aged Out No longer eligi ble based on patient's age to complete this topic Meningococcal ACWY Vaccine Aged Out N o longer eligible based on patient's age to complete this topic Meningococcal B Vaccine Aged Out No l onger eligible based on patient's age to complete this topic RSV Immunization Patients Un solomon 20 months Aged Out No longer eligible b ased on patient's age to complete this topic Varicella Vaccines Aged Out No longer eligible based on patient's age to complete this topic Insurance MEDICAID - [place] Care Teams Switch Inspector Relationship Specialty Start Date End Date Yoselyn Ware MD [address] [place] [address] [place] [id number] PCP - General 05/01/24
== END 2024-12-09 12:18 | disposition home or self-care (01) ==
LOC: HO.10HDL 12:17
PROVIDERS: Visit Provider Internal Medicine
DX: B37.32 Chronic candidiasis of vulva and vagina (principal); E11.65 Type 2 diabetes mellitus with hyperglycemia; I10 Essential (primary) hypertension
CPT/HCPCS: 36415; 80053; 83036

== ENCOUNTER 2025-03-25 06:37 | Outpatient (REF) | payer MEDICAID, SELFPAY ==
--- OUTSIDE RECORDS SUMMARY | 2025-03-25 06:39 | XMS_ITS | Clinical Summary ---
Author Organization [address] [facility] Address [address] [place] [address] Phone Care Team Providers Care Checkout Supervisor Name Role Phone Yoselyn Ware MD Primary Care Provider [phone] Allergies No known active allergies Medications aspirin [...] Comments GERD (gastroesophageal reflux disease) Diabetes mellitus ([facility] V24, [facility] V28) H/O section Social History Tobacco Use Types [...] ars (1 of 2 - PCV) 11/21/1987 Zoster Vaccines (1 of 2) 11/21/1987 Cervical Cancer Screening: P ap Smear 1989 Colorectal Cancer Screening: Colonoscopy 07/15/2024 HIV Screening 07/15/2024 Hepatitis C Screening 07/15/2024 Social Influencers of Health Screening 07/15/2024 Depression Screening 09/04/2024 Influenza Vaccine (#1) 2025 HIB Vaccines Aged Out No longer eligi [...] topic Insurance [place]ICA[place] - [place] Care Teams Checkout Supervisor Relationship Specialty Start Date End Date Yoselyn Ware MD [address] [place] [address] [place] [address] PCP - General 05/01/24
[2025-03-25 07:32] LABS: Hemoglobin A1C 209.5745 umol/L; Total Hemoglobin (HGBA1C) 3505.2458 umol/L
[2025-03-25 07:51] LABS: Alanine Aminotransferase 20 U/L (0-31); Albumin Level 4.3 g/dL (3.5-5.0); Alkaline Phosphatase 97 U/L (39-117); Anion Gap 10 (12-20); Aspartate Amino Transferase 20 U/L (5-31); Blood Urea Nitrogen 13 mg/dL (9-16); Calcium 9.3 mg/dL (8.4-10.2); Carbon Dioxide 28 mmol/L (22-29); Chloride 106 mmol/L (96-108); Estimated Glomerular Filt Rate > 60; Potassium 4.4 mmol/L (3.3-5.1); Sodium 140 mmol/L (135-145); Total Protein 6.9 g/dL (6.5-8.0)
== END 2025-03-25 06:38 | disposition home or self-care (01) ==
LOC: HO.LAB 06:37
PROVIDERS: PCP Internal Medicine; Visit Provider Internal Medicine
DX: I10 Essential (primary) hypertension (principal); E11.65 Type 2 diabetes mellitus with hyperglycemia
CPT/HCPCS: 36415; 80053; 83036

== ENCOUNTER → 2025-05-12 08:00 | Outpatient (REF) | payer MEDICAID, SELFPAY ==
--- NOTE | ~2025-05-12 | NM_ITS ---
EXAMINATION: NM HEPATOBILIARY WITH PHARM HISTORY: PAIN RUQ. TECHNIQUE: An hepatobiliary scan was performed following the intravenous administration of 5 mCi technetium 99m-mebrofenin. Sequential images were obtained over 1 hour. Subsequently, the patient received 1.8 microgram of IV CCK over 30 minutes and additional imaging was performed. COMPARISON: Correlation is made with an abdominal ultrasound dated 04/10/2024. FINDINGS: There is normal uptake and excretion of the radiopharmaceutical by the liver. Gallbladder activity is noted at 12 minutes. Common bile duct activity is seen at 14 minutes. Small bowel activity is noted at 76 minutes. After the administration of intravenous CCK, the estimated gallbladder ejection fraction is 15%, which is abnormally low (normal 35-80%). NM/NM hepatobiliary w pharm IMPRESSION: 1. No evidence of cystic duct obstruction. 2. Abnormally low gallbladder ejection fraction suggestive of biliary dyskinesia. Electronically signed by: Aaron Pagan MD 05/12/2025 10:26 AM EDT
--- OUTSIDE RECORDS SUMMARY | 2025-05-12 08:07 | XMS_ITS | Clinical Summary ---
Author Organization [address] [facility] Address [address] [place] [address] Phone Care Team Providers Care Business Applications Specialist Name Role Phone Yoselyn Ware MD Primary Care Provider [phone] Allergies No known active allergies Medications aspirin [...] Comments GERD (gastroesophageal reflux disease) Diabetes mellitus ([facility] V24, [facility] V28) H/O section Social History Tobacco Use [...] 07/23/2024 10:21 AM EST Plan of Treatment Upcoming Encounters Date Type Department Care Team (Late st Contact Info) Description 05/22/2025 2:30 PM EDT Office Visit Orthopedic Surgery - [place] [address] [address] Valerio Pham, DPKathleen [address] [address] Health Maintenance Due Date Last Done Comments [...] topic Insurance [place] - [place] Care Teams Business Applications Specialist Relationship Specialty Start Date End Date Yoselyn Ware MD [address] [place] [address] [place] [address] PCP - General 05/01/24
--- OUTSIDE RECORDS SUMMARY | 2025-05-12 08:07 | XMS_ITS | Clinical Summary ---
Author Organization [employer] Address [address] [facility] 7t [place] [address] Care Team Providers Care [employer] French Teacher Name Role Phone Unavailable Primary Care Provider Unavailabl e Allergies No known active allergies Medications No known medications Active Problems No known active problems Social History Tobacco Use Types Packs/Day Years [...] 85 11/15/2024 11:28 AM EDT Temperature 36.6 C (97.9 F) 11/15/2024 11:28 AM EDT Respiratory Rate 17 11/15/2024 11:28 AM EDT [...] Screening 1968 SDOH Screening 1968 Sigmoidoscopy 1968 Disability Screening 1968 Alcohol/Substance Use Screening 1980 Tobacco Screening 1980 Hepatitis C Screening 1986 DTaP/Tdap/Td Vaccines (1 - Tdap) 11/21/1987 Hepatitis B Vaccines (1 of 3 - 19+ 3-dose series) 11/21/1987 Pap Smear 1989 Cervical Cancer Screening 1998 HPV/Cotest 1998 Mammogram 2008 Pneumococcal Vaccine: 50+ Ye ars (1 of 1 - PCV) 2018 Zoster Vaccines (1 of 2) 2018 COVID-19 Vaccine (1 - 2023-2 5 season) 2025 Influenza Vaccine (#1) 2025 RSV Patients and Pa tients Aged 60 [...]
== END ==
LOC: HO.NUCMED 08:00
PROVIDERS: PCP Internal Medicine; Visit Provider Internal Medicine
DX: R10.11 Right upper quadrant pain (principal)
CPT/HCPCS: 78227; A9537; J2805

== ENCOUNTER → 2025-05-12 08:27 | Outpatient (BNV) | payer MEDICAID, SELFPAY | PROVIDERS: PCP Internal Medicine; Visit Provider Radiology Diagnostic Radiology | DX: R10.11 Right upper quadrant pain (principal); R93.2 Abnormal findings on diagnostic imaging of liver and biliary tract | CPT/HCPCS: 78227 ==

== ENCOUNTER 2025-05-13 14:23 | Outpatient (AMB) | payer MEDICAID, SELFPAY ==
[2025-05-13 14:26] VITALS: BP 118/59; PULSE 75; BMI 35.7
--- NOTE | 2025-05-13 14:26 | A.OFFVIS_ITS ---
Vital Signs 05/13/25 14:26 Height 5 ft 4 in Weight 208 lb 1.862 oz BMI 35.7 BP 118/59 L Blood Pressure Location Rt brachial Position Sitting Pulse 75 Intake Visit Reasons: gerd, liver questions Intake Note: Patient presents in follow up of GERD and liver concerns. CC: Patient c/o RUQ abdominal pain with radiation to her Rt flank and Rt lower back. Per patient sometimes the pain radiates to her Rt upper back. She reports a burning sensation from her Rt lower back when she gets the pain. She also c/o GERD, abdominal bloating, nausea, and constipation. Hog Driver Required: No Accompanied by: Self / Same As Patient Allergies No Known Allergies (No Known Allergies*) Allergy (Verified 05/13/25 14:32) HPI HPI gerd, liver questions: Details: Assessment & Plan (1) RUQ abdominal pain: Code(s): R10.11 - Right upper quadrant pain Category: Medical (2) Acute diarrhea: Comment: Resolved without any explanation all stool studies and tests were negative Code(s): R19.7 - Diarrhea, unspecified Category: Medical (3) GERD (gastroesophageal reflux disease): Code(s): K21.9 - Gastro-esophageal reflux disease without esophagitis Category: Medical (4) Constipation: Code(s): K59.00 - Constipation, unspecified Category: Medical Plan She is due for repeat colonoscopy sometime between now and 2025. Her diarrhea has resolved, but she has right sided abd pain that remains since the diarrhea. At times it spreads to the middle abd to left side and she feels gas trapping in the RUQ. It comes and goes and is 6/10 but it is bearable. The pain will start about 1/2 hour after eating and will be accompanied by severe regurgitation. It will persist for 2-4 hours and is colicky. She can not relate it to many types of foods eaten, but she does note it with more fatty sauces /gravy and foods. She complains that she can not chew her food well with her dentures. She notes that larger pieces of meat are hard to swallow and she does better if she cuts it into smaller pieces - so this could be r/t her chewing and dentures. Will get US of GB and trial of simethicone. She continues on her famotidine twice a day and she feels this is enough control her heartburn. ROV after US Orders: Orders US abdomen complete Today R10.11 - Right upper quadrant pain Medications: New simethicone after meals 180 mg PO QID 120 caps 3RF 30 days ULTRASOUND OF THE ABDOMEN 04/15/2024 FINDINGS: PANCREAS: Limited visualization of pancreatic tail and head. Imaged portion of pancreatic body is unremarkable. ABDOMINAL AORTA: The proximal, mid, and distal segments are normal in caliber. INFERIOR VENA CAVA: Visualized portions are normal. LIVER: Increased hepatic parenchymal heterogeneity and echogenicity could be associated with hepatocellular disease/hepatic steatosis and substantially limits visualization. Correlation with liver function tests and clinical exam recommended to determine further management. 2.8 x 1.1 x 1.6 cm echogenic lesion in the left hepatic lobe. Differential considerations include hemangioma, focal fatty sparing or mass. MRI with gadolinium recommended for further evaluation. GALLBLADDER: No gallstones. No gallbladder wall thickening. COMMON BILE DUCT: Normal in caliber measuring 0.4 cm in diameter. RIGHT KIDNEY: No hydronephrosis. No renal calculi. Limited visualization. The kidney measures 12.3 cm in maximum dimension. LEFT KIDNEY: No hydronephrosis. No renal calculi. Limited visualization. The kidney measures 13.0 cm in maximum dimension. SPLEEN: Normal. The spleen measures 9.4 cm in maximum dimension. FREE FLUID: None. US/US abdomen complete IMPRESSION: 1. Increased hepatic parenchymal heterogeneity and echogenicity could be associated with hepatocellular disease/hepatic steatosis and substantially limits visualization. Correlation with liver function tests and clinical exam recommended to determine further management. 2. A 2.8 cm echogenic lesion in the left hepatic lobe. Differential considerations include hemangioma, focal fatty sparing or mass. MRI with gadolinium recommended for further evaluation. HIDA SCAN ORDERED BY PCP 05/12/2025 IMPRESSION: 1. No evidence of cystic duct obstruction. 2. Abnormally low gallbladder ejection fraction suggestive of biliary dyskinesia. (15%) TODAY'S VISIT She is due for repeat colonoscopy sometime between now and 2025. [facility] Medical History (Updated 05/13/25 @ 14:34 by HARVEY Jane) Colon cancer screening Acute diarrhea History of COVID-19 Diabetes Elevated cholesterol HTN (hypertension) GERD (gastroesophageal reflux disease) Surgical History History of esophagogastroduodenoscopy (EGD) Hx of section Hx of tooth extraction Hx of colonoscopy Hx of tubal ligation Family History Father HTN (hypertension) Mother Hypothyroidism Social History Alcohol intake: never Patient Tobacco Use Status: Current everyday Tobacco user Cigarettes Per Day: 7 Years Smoked: 35 Current occupational status: employed 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, 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 Review of Systems Const Denies fatigue, Denies fever(s), Denies night sweats, Denies poor appetite and Denies weight loss ENT Reports Normal hearing present, Denies dental pain, Denies dysphagia, Denies hearing loss, Denies mouth pain, Denies odynophagia, Denies throat swelling, Denies tongue swelling and Reports other (Dentition adequate) Card Reports no additional complaints Resp Reports no additional complaints GI Details: Reports abdominal pain, Denies melena, Reports bloating, Denies hematochezia, Denies constipation, Denies GI cramping, Denies dysphagia, Denies excessive flatus, Denies early satiety, Reports heartburn, Denies diarrhea, Reports loose stools, Reports nausea, Denies odynophagia, Denies vomiting and Denies hematemesis Musc Reports back pain Skin/Breast Denies pruritus, Denies lesions, Denies rash and Denies jaundice Neuro Reports Normal hearing present and Denies Abnormal speech present Psych Reports anxiety Endo Denies fatigue Aller/Immun Denies throat swelling and Denies tongue swelling Physical Exam Vital Signs: Last Vital Signs Pulse 75 05/13/25 14:26 BP 118/59 L 05/13/25 14:26 BMI result Body Mass Index 35.7 Const General: cooperative, no acute distress, well developed and well groomed Nutritional Appearance: well nourished and obese Orientation/consciousness: oriented to person, oriented to place and oriented to time Limitations: No language barrier HEENT Head: Yes normocephalic and Yes atraumatic Eyes General: appearance normal, both eyes and all related structures Pupils: Equal, round and reactive pupils present Neck Neck: Yes normal visual inspection and Yes no lymphadenopathy Thyroid: Thyroid normal Resp Effort & Inspection: normal respiratory effort and able to speak in complete sentences Auscultation: clear to auscultation bilaterally Cardio Rate: regular rate Rhythm: regular rhythm Heart sounds: Normal, physiologic split S2 sound present Peripheral pulses: radial pulses present and posterior tibial pulses present GI Inspection: No distended, No Abdominal panniculus present and Yes obesity Palpation (GI): Soft to palpation, Tenderness to palpation present (GI) (Generalized), no guarding, not rigid and No hepatosplenomegaly present Percussion: Yes normal to percussion Auscultation: normal bowel sounds Rectal Exam - Female: deferred Skin General skin exam: no rashes or lesions noted, turgor normal, skin not dry, no jaundice, No spider nevi and no striae Rashes: no rashes Nails: normal Neuro General: oriented to person, oriented to place and oriented to time Cranial nerves: Yes Equal, round and reactive pupils present and Yes Normal hearing present Speech: No Abnormal speech present Extrem General: Yes normal to inspection, No clubbing, No cyanosis and No edema Psych Appearance: grossly normal and well kempt Mental Status: mental status grossly normal Speech and movement: Normal speech and movement present Affect: normal affect Attitude: cooperative Thought process: Normal thought process present and not confabulating Thought content: Normal thought content present Insight: Limited insight present (Psych) Judgement: Limited judgement present (Psych) Assessment & Plan Assessment & Plan (1) Biliary dyskinesia: Comment: 05/2025 HIDA SCAN= 15% EF Code(s): K82.8 - Other specified diseases of gallbladder Category: Medical (2) GERD (gastroesophageal reflux disease): Code(s): K21.9 - Gastro-esophageal reflux disease without esophagitis Category: Medical (3) Dysphagia: Comment: RESOLVED WITH TREATING THE REFLUX AEB Code(s): R13.10 - Dysphagia, unspecified Category: Medical (4) Hx of colonoscopy: Comment: 2020, repeat 3-5 years r/t suboptimal prep Code(s): Z98.890 - Other specified postprocedural states Category: Surgical (5) Constipation: Code(s): K59.00 - Constipation, unspecified Category: Medical Plan The patient has been lost to follow-up for over a year. - The patient is a 54-year-old female presenting with pain in the right upper quadrant and digestive issues. - She reports ongoing pain for over three months, with radiation to her lower back and associated burning sensations. - Accompanying symptoms include bloating, gassiness, and severe diarrhea, especially after the ingestion of fatty meals. - Tests including an ultrasound showed no gallstones, but a subsequent HIDA scan identified a low gallbladder ejection fraction, indicating biliary dyskinesia. - The symptoms have significantly impacted her quality of life and ability to perform daily tasks, especially considering her type 2 diabetes management. - She reports communication issues with her previous health provider, leading to a delay in addressing her symptoms. -I educate her about biliary dyskinesia and that she should avoid high fat foods, and in the meantime we will put her on a trial of Creon to see if we can help give her some relief from the symptoms. I am also referring her to General surgery to discuss a possible elective cholecystectomy. Depending on how she reaction to the Creon and what she thinks about General surgery and their opinions about the affects, good or bad a cholecystectomy we will determine going forward. It is always possible that there is another contributing pathology so I will not rule this out until I see how she responds. Return office visit in 4 weeks Orders: Referrals General Surgery Referral K82.8 - Other specified diseases of gallbladder Medications: New dicyclomine 20 mg PO QID 120 tabs 3RF 30 days [id number]-lhpoeel 36,000-114,000- 180,000 unit (Creon) administer with meals and/or snacks 2 caps PO BID 120 caps 6RF K82.8 - Other specified diseases of gallbladder Refilled simethicone after meals 180 mg PO QID 120 caps 3RF 30 days famotidine 40 mg PO BID 180 tabs 2RF K21.9 - Gastro-esophageal reflux disease without esophagitis, R13.10 - Dysphagia, unspecified bisacodyl (Dulcolax (bisacodyl)) 10 mg (2 x 5 mg) PO BEDTIME 60 tabs 6RF 30 days K59.00 - Constipation, unspecified Coding Level of Care Code Est Pt Level 4 (63559) Diagnoses Biliary dyskinesia K82.8 GERD (gastroesophageal reflux disease) K21.9 Dysphagia R13.10 Hx of colonoscopy Z98.890 Constipation K59.00 Time Spent (min) 36
--- OUTSIDE RECORDS SUMMARY | 2025-05-13 16:58 | XMS_ITS | Clinical Summary ---
Author Organization [employer] Address [address] [facility] [place] [address] Care Team Providers Care Regional Business Development Manager Name Role Phone Unavailable Primary Care [...]
--- OUTSIDE RECORDS SUMMARY | 2025-05-13 16:58 | XMS_ITS | Clinical Summary ---
Author Organization [address] [facility] Address [address] [place] [address] Phone Care Team Providers Care Uc Architect Name Role Phone Yoselyn Ware MD Primary Care Provider [phone] Allergies No known active allergies Medications aspirin [...] Comments GERD (gastroesophageal reflux disease) Diabetes mellitus ([facility] V24, [facility] V28) H/O section Social History [...] PM EDT Office Visit Orthopedic Surgery - [place] [id number] [address] Valerio Pham, DPKathleen [address] [address] Health Maintenance Due Date Last Done Comments [...] topic Insurance MEDICAID - [place] Care Teams Uc Architect Relationship Specialty Start Date End Date Yoselyn Ware MD [address] [place] [address] [place] [address] PCP - General 05/01/24
== END 2025-05-13 16:03 | disposition home or self-care (01) ==
LOC: HO.HGI 14:24
PROVIDERS: PCP Internal Medicine; Visit Provider Nurse Practitioner
DX: K82.8 Other specified diseases of gallbladder (principal); K21.9 Gastro-esophageal reflux disease without esophagitis; R13.10 Dysphagia, unspecified; Z98.890 Other specified postprocedural states; K59.00 Constipation, unspecified
CPT/HCPCS: 99214

== ENCOUNTER → 2025-05-13 14:23 | Outpatient (BNVA) | payer MEDICAID, SELFPAY | PROVIDERS: PCP Internal Medicine; Visit Provider Nurse Practitioner | DX: K21.9 Gastro-esophageal reflux disease without esophagitis (principal); K82.8 Other specified diseases of gallbladder; R13.10 Dysphagia, unspecified; K59.00 Constipation, unspecified; R14.0 Abdominal distension (gaseous); F17.210 Nicotine dependence, cigarettes, uncomplicated; E66.09 Other obesity due to excess calories; Z68.35 Body mass index [BMI] 35.0-35.9, adult | CPT/HCPCS: 99212 ==

== ENCOUNTER 2025-06-20 10:19 | Outpatient (REF) | payer MEDICAID, SELFPAY ==
--- NOTE | ~2025-06-20 | XR_ITS ---
EXAMINATION: XR LUMBOSACRAL SPINE CLINICAL INFORMATION: M54.9 - Dorsalgia, unspecified COMPARISON: Correlated to abdomen x-ray dated June 25, 2019 TECHNIQUE: AP and lateral views FINDINGS: Facet joint hypertrophy at L5-S1 and to a lesser extent L4-5. Multilevel small marginal osteophyte formation and endplate sclerosis and decreased intervertebral disc height pronounced at L4-5 and L5-S1. No acute cortical disruption or gross malalignment. No lytic or blastic lesions. Abundant stool in the large intestine without intestinal obstruction pattern. XR/XR lumbar spine 2-3V IMPRESSION: Multilevel lumbar spondylosis pronounced at L5-S1. Electronically signed by: Dash Woods MD 06/20/2025 11:47 AM EDT
--- NOTE | ~2025-06-20 | XR_ITS ---
EXAMINATION: XR THORACIC SPINE CLINICAL INFORMATION: M54.9 - Dorsalgia, unspecified COMPARISON: Correlated to chest x-ray dated August 16, 2023 TECHNIQUE: AP lateral and swimmer's projection FINDINGS: Mild S-shaped curvature of the thoracic spine. Multilevel marginal osteophyte formation, endplate sclerosis and decreased intervertebral disc height throughout the axial skeleton. No acute cortical disruption or gross malalignment. No lytic or blastic lesions. XR/XR thoracic spine 2V IMPRESSION: Scoliosis and spondylosis, mild to moderate. Electronically signed by: Dash Woods MD 06/20/2025 11:46 AM EDT
== END 2025-06-20 10:20 | disposition home or self-care (01) ==
LOC: HO.XRAY 10:19
PROVIDERS: PCP Internal Medicine; Visit Provider Nurse Practitioner
DX: K82.8 Other specified diseases of gallbladder (principal); K21.9 Gastro-esophageal reflux disease without esophagitis; K59.00 Constipation, unspecified; M54.9 Dorsalgia, unspecified
CPT/HCPCS: 72070; 72100; 99212

== ENCOUNTER 2025-06-20 10:19 | Outpatient (AMB) | payer MEDICAID, SELFPAY ==
--- NOTE | 2025-06-20 10:28 | A.OFFVIS_ITS ---
Vital Signs 06/20/25 10:33 Height 5 ft 4 in Weight 210 lb 5.136 oz BMI 36.1 BP 128/85 Blood Pressure Location Rt brachial Position Sitting Pulse 77 Intake Visit Reasons: biliary dyskinesia Intake Note: Isatu presents to in office today in follow up of biliary dyskinesia CC: Patient c/o heartburn, and acid reflux. She states that she is doing better from RUQ abd pain but is now having RUQ back pain. Oil Agent Required: No Accompanied by: Self / Same As Patient Allergies No Known Allergies (No Known Allergies*) Allergy (Verified 06/20/25 10:38) HPI HPI biliary dyskinesia: Details: Assessment & Plan (1) Biliary dyskinesia: Comment: 05/2025 HIDA SCAN= 15% EF Code(s): K82.8 - Other specified diseases of gallbladder Category: Medical (2) GERD (gastroesophageal reflux disease): Code(s): K21.9 - Gastro-esophageal reflux disease without esophagitis Category: Medical (3) Dysphagia: Comment: RESOLVED WITH TREATING THE REFLUX AEB Code(s): R13.10 - Dysphagia, unspecified Category: Medical (4) Hx of colonoscopy: Comment: 2020, repeat 3-5 years r/t suboptimal prep Code(s): Z98.890 - Other specified postprocedural states Category: Surgical (5) Constipation: Code(s): K59.00 - Constipation, unspecified Category: Medical Plan The patient has been lost to follow-up for over a year. - The patient is a 54-year-old female presenting with pain in the right upper quadrant and digestive issues. - She reports ongoing pain for over three months, with radiation to her lower back and associated burning sensations. - Accompanying symptoms include bloating, gassiness, and severe diarrhea, especially after the ingestion of fatty meals. - Tests including an ultrasound showed no gallstones, but a subsequent HIDA scan identified a low gallbladder ejection fraction, indicating biliary dyskinesia. - The symptoms have significantly impacted her quality of life and ability to perform daily tasks, especially considering her type 2 diabetes management. - She reports communication issues with her previous health provider, leading to a delay in addressing her symptoms. -I educate her about biliary dyskinesia and that she should avoid high fat foods, and in the meantime we will put her on a trial of Creon to see if we can help give her some relief from the symptoms. I am also referring her to General surgery to discuss a possible elective cholecystectomy. Depending on how she reaction to the Creon and what she thinks about General surgery and their opinions about the affects, good or bad a cholecystectomy we will determine going forward. It is always possible that there is another contributing pathology so I will not rule this out until I see how she responds. Return office visit in 4 weeks Orders: Referrals General Surgery Referral K82.8 - Other specified diseases of gallbladder Medications: New dicyclomine 20 mg PO QID 120 tabs 3RF 30 days [id number]-bmrwkmk 36,000-114,000- 180,000 unit (Creon) administer with meals and/or snacks 2 caps PO BID 120 caps 6RF K82.8 - Other specified diseases of gallbladder Refilled simethicone after meals 180 mg PO QID 120 caps 3RF 30 days famotidine 40 mg PO BID 180 tabs 2RF K21.9 - Gastro-esophageal reflux disease without esophagitis, R13.10 - Dysphagia, unspecified bisacodyl (Dulcolax (bisacodyl)) 10 mg (2 x 5 mg) PO BEDTIME 60 tabs 6RF 30 days K59.00 - Constipation, unspecified TODAY'S VISIT [facility] Medical History Colon cancer screening Acute diarrhea History of COVID-19 Diabetes Elevated cholesterol HTN (hypertension) GERD (gastroesophageal reflux disease) Surgical History History of esophagogastroduodenoscopy (EGD) Hx of section Hx of tooth extraction Hx of colonoscopy Hx of tubal ligation Family History Father HTN (hypertension) Mother Hypothyroidism Social History Alcohol intake: never Patient Tobacco Use Status: Current everyday Tobacco user Cigarettes Per Day: 7 Years Smoked: 35 Current occupational status: employed 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, 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 Review of Systems Const Denies fatigue, Denies fever(s), Denies night sweats, Denies poor appetite and Denies weight loss ENT Reports Normal hearing present, Denies dental pain, Denies dysphagia, Denies hearing loss, Denies mouth pain, Denies odynophagia, Denies throat swelling, Denies tongue swelling and Reports other (Dentition adequate) Card Reports no additional complaints Resp Reports no additional complaints GI Details: Reports abdominal pain, Denies melena, Reports bloating, Denies hematochezia, Denies constipation, Denies GI cramping, Denies dysphagia, Denies excessive flatus, Denies early satiety, Reports heartburn, Reports diarrhea, Denies nausea, Denies odynophagia, Denies vomiting and Denies hematemesis Reports flank pain Musc Reports back pain Skin/Breast Denies pruritus, Denies lesions, Denies rash and Denies jaundice Neuro Reports Normal hearing present and Denies Abnormal speech present Endo Denies fatigue Aller/Immun Denies throat swelling and Denies tongue swelling Physical Exam Vital Signs: Last Vital Signs Pulse 77 06/20/25 10:33 BP 128/85 06/20/25 10:33 BMI result Body Mass Index 36.1 Const General: cooperative, no acute distress, well developed and well groomed Nutritional Appearance: well nourished and obese Orientation/consciousness: oriented to person, oriented to place and oriented to time Limitations: language barrier HEENT Head: Yes normocephalic and Yes atraumatic Eyes General: appearance normal, both eyes and all related structures Pupils: Equal, round and reactive pupils present Neck Neck: Yes normal visual inspection and Yes no lymphadenopathy Thyroid: Thyroid normal Resp Effort & Inspection: normal respiratory effort and able to speak in complete sentences Auscultation: clear to auscultation bilaterally Cardio Rate: regular rate Rhythm: regular rhythm Heart sounds: Normal, physiologic split S2 sound present Peripheral pulses: radial pulses present and posterior tibial pulses present GI Inspection: No distended, Yes Abdominal panniculus present and Yes obesity Palpation (GI): Soft to palpation, nontender, no guarding, not rigid and No hepatosplenomegaly present Percussion: Yes normal to percussion Auscultation: normal bowel sounds Rectal Exam - Female: deferred Skin General skin exam: no rashes or lesions noted, turgor normal, skin not dry, no jaundice, No spider nevi and no striae Rashes: no rashes Nails: normal Neuro General: oriented to person, oriented to place and oriented to time Cranial nerves: Yes Equal, round and reactive pupils present and Yes Normal hearing present Speech: No Abnormal speech present Extrem General: Yes normal to inspection, No clubbing, No cyanosis and No edema Psych Appearance: grossly normal and well kempt Mental Status: mental status grossly normal Speech and movement: Normal speech and movement present Affect: normal affect Attitude: cooperative Thought process: Normal thought process present and not confabulating Thought content: Normal thought content present Insight: Limited insight present (Psych) Judgement: Limited judgement present (Psych) Assessment & Plan Assessment & Plan (1) Biliary dyskinesia: Comment: 05/2025 HIDA SCAN= 15% EF Code(s): K82.8 - Other specified diseases of gallbladder Category: Medical (2) GERD (gastroesophageal reflux disease): Code(s): K21.9 - Gastro-esophageal reflux disease without esophagitis Category: Medical (3) Constipation: Code(s): K59.00 - Constipation, unspecified Category: Medical (4) Back pain: Code(s): M54.9 - Dorsalgia, unspecified Category: Medical Plan She feels that the Creon helped her symptoms and pain ?a little bit. ? She was unaware that I had referred her to surgery to discuss an elective cholecystectomy given her ongoing right upper quadrant abdominal pain and other symptoms consistent with biliary dyskinesia including gas bloating and loose stools. I made her aware of this. Because she does have a higher body mass will try increasing the Creon to see if this gives her any better relief in the short term. It is also possible that the pain is a combination of factors. Because she said it also gets worse when she does housework we will get an x-ray of her thoracic and lumbar spine to see if this any discernible musculoskeletal component. She is agreeable to this. Return office visit in 6 weeks Orders: Orders XR thoracic spine 2V Today M54.9 - Dorsalgia, unspecified XR lumbar spine 2-3V Today M54.9 - Dorsalgia, unspecified Medications: Changed From hnligg-whtdgjqm-ugpglmd (pork) 36,000-114,000- 180,000 unit (Creon) administer with meals and/or snacks 2 caps PO BID 120 caps 6RF K82.8 - Other specified diseases of gallbladder To onbvgy-hsvmlbke-clyyhds (pork) 36,000-114,000- 180,000 unit (Creon) administer with meals and/or snacks 3 caps PO BID 180 caps 6RF K82.8 - Other specified diseases of gallbladder Refilled dicyclomine 20 mg PO QID 120 tabs 3RF 30 days simethicone after meals 180 mg PO QID 120 caps 3RF 30 days bisacodyl (Dulcolax (bisacodyl)) 10 mg (2 x 5 mg) PO BEDTIME 60 tabs 6RF 30 days K59.00 - Constipation, unspecified Coding Level of Care Code Est Pt Level 3 (32317) Diagnoses Biliary dyskinesia K82.8 GERD (gastroesophageal reflux disease) K21.9 Constipation K59.00 Back pain M54.9
[2025-06-20 10:33] VITALS: BP 128/85; PULSE 77; BMI 36.1
--- OUTSIDE RECORDS SUMMARY | 2025-06-20 12:17 | XMS_ITS | Clinical Summary ---
Author Organization 175 [facility] Address 175 [place] [address] Phone Care Team Providers Care Retail Marketing Manager Name Role Phone Yoselyn Ware MD Primary Care Provider [phone] Allergies No known active allergies Medications aspirin [...] time each day. 100 g 1 Active Encounters Date Type Department Care Team Description 05/22/2025 2:30 PM EDT Office Visit Orthopedic Surgery [facility] [address] [phone] Valerio Pham DPM Controlled type 2 diabetes with neuropathy ([facility] V24, [facility] V28) (Primary Dx); Pain in both feet; Arthritis of both feet; Dermatophytosis, nail; Eccrine poroma of foot, right from Last 3 Months Medical History Medical History Date Comments GERD (gastroesophageal reflux disease) Diabetes mellitus ([facility] V24, [facility] V28) H/O section Social History Tobacco Use [...] Care Team (Late st Contact Info) Description 08/21/2025 1:45 PM EST Office Visit Orthopedic Surgery [place] [address] [phone] Valerio Pham DPM [address] [address] Health Maintenance Due Date Last Done Comments Breast Cancer Screening 1968 Colorectal Cancer Screening: Colonoscopy 1968 Diabetes: Annual GFR (Glomer ular Filtration Rate) 1968 COVID-19 Vaccine (#1) 1973 Diabetes: Annual Foot Exam 1978 Diabetes: Annual Retina Eye Exam 1978 DTaP,Tdap,and Td Vaccines (1 - Tdap) 11/21/1987 Hepatitis B Vaccines (1 of 3 - 19+ 3-dose series) 11/21/1987 Pneumococcal Vaccine: 50+ Ye ars (1 of 2 - PCV) 11/21/1987 Zoster Vaccines (1 of 2) 11/21/1987 Cervical Cancer Screening: P ap Smear 1989 RSV Immunization Adult Patie nts (1 - Risk 50-74 years 1-dose series) 2018 Cholesterol Screening (Lipid Panel) 07/15/2024 HIV Screening 07/15/2024 Hepatitis C Screening 07/15/2024 Social Influencers of Health Screening 07/15/2024 Depression Screening 09/04/2024 Influenza Vaccine (#1) 2025 Diabetes: Annual Urine Albumin-Creatinine Ratio (uACR) 05/22/2025 Diabetes: Blood Sugar Contro l Test (HGBA1C) 05/22/2025 HIB Vaccines Aged Out No longer eligi [...] to complete this topic Insurance MEDICAID - [place] Care Teams Retail Marketing Manager Relationship Specialty Start Date End Date Yoselyn Ware MD [address] [place] [address] [place] [id number] PCP - General 05/01/24
--- OUTSIDE RECORDS SUMMARY | 2025-06-20 12:17 | XMS_ITS | Clinical Summary ---
Author Organization [employer] Address [address] [facility] 7t [place] [address] Care Team Providers Care Lean Manufacturing Leader Name Role Phone Unavailable Primary Care Provider [...]
== END 2025-06-20 10:57 | disposition home or self-care (01) ==
LOC: HO.HGI 10:20
PROVIDERS: PCP Internal Medicine; Visit Provider Nurse Practitioner
DX: K82.8 Other specified diseases of gallbladder (principal); K21.9 Gastro-esophageal reflux disease without esophagitis; K59.00 Constipation, unspecified; M54.9 Dorsalgia, unspecified
CPT/HCPCS: 99213

== ENCOUNTER → 2025-06-20 11:07 | Outpatient (BNV) | payer MEDICAID, SELFPAY | PROVIDERS: PCP Internal Medicine; Visit Provider Radiology Diagnostic Radiology | DX: M47.817 Spondylosis without myelopathy or radiculopathy, lumbosacral region (principal); M47.814 Spondylosis without myelopathy or radiculopathy, thoracic region; M41.34 Thoracogenic scoliosis, thoracic region | CPT/HCPCS: 72070; 72100 ==

== ENCOUNTER 2025-06-25 07:55 | Outpatient (REF) | payer MEDICAID, SELFPAY ==
--- OUTSIDE RECORDS SUMMARY | 2025-06-25 07:58 | XMS_ITS | Clinical Summary ---
Author Organization [employer] Address [address] [facility] 7t [place] [address] Care Team Providers Care Sheather Name Role Phone Unavailable Primary Care Provider [...]
--- OUTSIDE RECORDS SUMMARY | 2025-06-25 07:58 | XMS_ITS | Clinical Summary ---
Author Organization 175 [facility] Address 175 [place] [address] Phone Care Team Providers Care Patent Law Specialist Name Role Phone Yoselyn Ware MD Primary Care Provider [phone] Allergies No known active allergies Medications aspirin [...] 2:30 PM EDT Office Visit Orthopedic Surgery [facility] [address] [phone] Valerio Pham DPM Controlled type 2 diabetes with neuropathy [place] [place] [facility] [place] (Primary Dx); Pain in both feet; Arthritis of both feet; Dermatophytosis, nail; Eccrine poroma of foot, right from Last 3 Months Medical History Medical History Date Comments GERD (gastroesophageal reflux disease) Diabetes mellitus [place] [place] [facility] [place] H/O section Social History Tobacco Use [...] 1:45 PM EST Office Visit Orthopedic Surgery [place] [phone] [phone] Valerio Pham DPM [address] [address] Health Maintenance Due Date Last Done Comments [...] to complete this topic Insurance [place]ICAID - [place] Care Teams Patent Law Specialist Relationship Specialty Start Date End Date Yoselyn Ware MD [address] [place] [address] [place] [id number] PCP - General 05/01/24
[2025-06-25 08:08] LABS: MANUAL DIFF FLAG NO
[2025-06-25 08:54] LABS: Hematocrit 42.6 % (37.0-47.0); Hemoglobin 13.8 g/dl (12.0-16.0); Imm Gran Abs Auto 0.02 X10*3/uL (0.00-0.03); Imm Gran Pct Auto 0.3 % (0.0-0.4); Lymphocytes Absolute Auto 3.1 X10*3/uL (1.2-4.9); Mean Corpuscular HGB Conc 32.4 g/dl (31.0-35.0); Mean Corpuscular Hemoglobin 29.6 pg (27.0-33.0); Mean Corpuscular Volume 91.2 fL (80.0-98.0); NRBC Abs Auto 0.000 X10*3/uL (0.0-0.012); NRBC Pct Auto 0.0 /100WBC (0.0-0.2); Platelet Count 190 X10*3/uL (160-400); Red Blood Count 4.67 X10*6/uL (4.20-5.50); White Blood Count 7.5 X10*3/uL (4.8-10.8)
[2025-06-25 09:36] LABS: Alanine Aminotransferase 24 U/L (0-31); Albumin Level 4.4 g/dL (3.5-5.0); Alkaline Phosphatase 97 U/L (39-117); Anion Gap 9 (12-20); Aspartate Amino Transferase 22 U/L (5-31); Blood Urea Nitrogen 12 mg/dL (9-16); Calcium 9.4 mg/dL (8.4-10.2); Carbon Dioxide 28 mmol/L (22-29); Chloride 108 mmol/L (96-108); Cholesterol 128 mg/dL (<200); Estimated Glomerular Filt Rate > 60; HDL Cholesterol 51 mg/dL (>40); Potassium 4.4 mmol/L (3.3-5.1); Sodium 141 mmol/L (135-145); Total Protein 6.9 g/dL (6.5-8.0); Triglycerides 120 mg/dL (<150)
[2025-06-25 10:20] LABS: Microalbum/Creatinine Ratio Ur 9.0 ug/mg cr (<30)
== END 2025-06-25 07:56 | disposition home or self-care (01) ==
LOC: HO.LAB 07:55
PROVIDERS: PCP Internal Medicine; Visit Provider Internal Medicine
DX: E11.65 Type 2 diabetes mellitus with hyperglycemia (principal); E78.00 Pure hypercholesterolemia, unspecified; I10 Essential (primary) hypertension; R10.11 Right upper quadrant pain
CPT/HCPCS: 36415; 80053; 80061; 82043; 82570; 83036; 85025

== ENCOUNTER 2025-07-10 12:08 | Outpatient (REF) | payer MEDICAID, SELFPAY ==
--- OUTSIDE RECORDS SUMMARY | 2025-07-10 15:05 | XMS_ITS | Clinical Summary ---
Author Organization [employer] Address [address] [facility] 7t [place] [address] Care Team Providers Care Critical Care Nurse Name Role Phone Unavailable Primary Care Provider [...]
== END 2025-07-10 12:09 | disposition home or self-care (01) ==
LOC: HO.MAMMO 12:08
PROVIDERS: PCP Internal Medicine; Visit Provider Internal Medicine
DX: Z12.31 Encounter for screening mammogram for malignant neoplasm of breast (principal)
CPT/HCPCS: 77063; 77067

== ENCOUNTER → 2025-07-10 12:30 | Outpatient (BNV) | payer MEDICAID, SELFPAY | PROVIDERS: PCP Internal Medicine; Visit Provider Internal Medicine | DX: Z12.31 Encounter for screening mammogram for malignant neoplasm of breast (principal) | CPT/HCPCS: 77063; 77067 ==

== ENCOUNTER 2025-07-17 08:02 | Outpatient (AMB) | payer MEDICAID, SELFPAY ==
--- NOTE | 2025-07-17 08:05 | MHC.OFFVIS ---
Vital Signs 07/17/25 08:14 Height 5 ft 4 in Weight 210 lb 6 oz BMI 36.1 BP 119/58 L Blood Pressure Location Rt brachial Position Sitting Pulse 76 Intake Visit Reasons: biliary dyskinesia Intake Note: Patient was referred by Veronika Sims NP, for an assessment for biliary dyskinesia. Pt c/o; reports RUQ radiates towards back, reports bulge on the RUQ postprandial, reports nausea and diarrhea after eating. DI: 05/12/2025 HIDA Scan 04/10/2024: Abd US Shoe Singer Required: No Accompanied by: Self / Same As Patient Allergies No Known Allergies (No Known Allergies*) Allergy (Verified 07/17/25 08:16) Medication List - Last Reconciled 07/17/25 by Miguelito Paul MD aspirin 81 mg PO DAILY atorvastatin 80 mg PO BEDTIME bisacodyl (Dulcolax (bisacodyl)) 10 mg (2 x 5 mg) PO BEDTIME 30 days cyclobenzaprine 5 mg PO TID PRN diazepam (Valium) 2 mg PO BID PRN dicyclomine 20 mg PO QID 30 days famotidine 40 mg PO BID glipizide ER 10 mg PO DAILY rfqymn-nqsmrbsq-yvnhfdx (pork) 36,000-114,000- 180,000 unit (Creon) 3 caps PO BID lisinopril 10 mg PO DAILY metformin 1,000 mg PO BID naproxen 500 mg PO BID PRN 30 days nystatin 1 appl topical BID simethicone 180 mg PO QID 30 days sitagliptin phosphate (Januvia) 100 mg PO DAILY HPI HPI biliary dyskinesia: Details: 54-year-old female with obesity and diabetes, referred because of biliary dyskinesia. She describes having frequent right upper quadrant pain for the past 3 months now. She says that often times this radiates to the back. She says that this usually worsens with oral intake. She denies nausea or vomiting. Sometimes she feels that her right upper quadrant is ?swollen?. She had an ultrasound which did not reveal any gallbladder disease. However, she was sent for a HIDA scan which showed an ejection fraction of 15. She was therefore referred to me because of symptoms consistent with a biliary dyskinesia. She has smoked since she was young and now smokes about 5 cigarettes a day. She says her hemoglobin A1c was around 7. 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, 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 Review of Systems Const Denies chills and Denies fever(s) Card Denies chest pain, Denies dyspnea and Denies dyspnea on exertion Resp Denies cough, Denies dyspnea and Denies dyspnea on exertion GI Denies hematochezia and Denies change in bowel habits Denies hematuria Musc Denies back pain and Denies limited range of motion Neuro Denies focal weakness and Denies convulsions Psych Denies depression and Denies mood swings Physical Exam Vital Signs: Last Vital Signs Pulse 76 07/17/25 08:14 BP 119/58 L 07/17/25 08:14 BMI result Body Mass Index 36.1 Const Other: Obese General: comfortable and no acute distress Orientation/consciousness: patient oriented x3 Neck Neck: Yes no lymphadenopathy Resp Auscultation: clear to auscultation bilaterally Cardio Rhythm: regular rhythm GI Palpation (GI): Soft to palpation, nontender and no guarding Neuro General: patient oriented x3 Assessment & Plan Assessment & Plan (1) Biliary dyskinesia: Comment: 05/2025 HIDA SCAN= 15% EF Code(s): K82.8 - Other specified diseases of gallbladder Category: Medical Plan: She describes having right upper quadrant pain frequently radiating to back. This seems to be worse with meals. HIDA scan shows an ejection fraction of 15% suggestive of biliary dyskinesia. This may explain her symptoms. I explained to her the option of proceeding with laparoscopic cholecystectomy with the possible open cholecystectomy. I reviewed the technique of this procedure. I reviewed the risk including but not limited to bleeding, infections, injury to other organs including bowel, liver and the bile ducts, bile leak, as well as the benefits and alternatives. I explained to her what to expect postoperatively She says she wants to proceed because of her frequent pain I am going so going to check a CAT scan of the abdomen and pelvis out any other pathology for her. Orders: Orders CT abdomen pelvis w IV con Today K82.8 - Other specified diseases of gallbladder Coding Level of Care Code New Pt Level 3 (32788) Diagnoses Biliary dyskinesia K82.8
[2025-07-17 08:14] VITALS: BP 119/58; PULSE 76; BMI 36.1
--- OUTSIDE RECORDS SUMMARY | 2025-07-17 08:15 | XMS_ITS | Clinical Summary ---
Author Organization [employer] Address [address] [facility] 7t [place] [address] Care Team Providers Care Cardiac Rehab Nurse Name Role Phone Unavailable Primary Care [...] of 2) 2018 COVID-19 Vaccine (1 - 2024-2 6 season) 2025 Influenza Vaccine (#1) 2025 RSV [...]
--- OUTSIDE RECORDS SUMMARY | 2025-07-17 08:16 | XMS_ITS | Clinical Summary ---
Author Organization 175 [facility] Address 175 [place] [address] Phone Care Team Providers Care Bus Matron Name Role Phone Yoselyn Ware MD Primary Care Provider [phone] Allergies No known active allergies Medications aspirin [...] 2:30 PM EDT Office Visit Orthopedic Surgery [facility] [address] [phone] Valerio Pham DPM Controlled type 2 diabetes with neuropathy [place] [place] [facility] V28[place] (Primary Dx); Pain in both feet; Arthritis of both feet; Dermatophytosis, nail; Eccrine poroma of foot, right from Last 3 Months Medical History Medical History Date Comments GERD (gastroesophageal reflux disease) Diabetes mellitus [place] [place], [facility] V28[place] H/O section Social History Tobacco Use [...] 1:45 PM EST Office Visit Orthopedic Surgery [place] [phone] [phone] Valerio Pham DPM [address] [address] Health Maintenance Due Date Last Done Comments [...] to complete this topic Insurance MEDICAID - [place] Care Teams Bus Matron Relationship Specialty Start Date End Date Yoselyn Ware MD [address] [place] [address] [place] [id number] PCP - General 05/01/24
== END 2025-07-17 08:51 | disposition home or self-care (01) ==
LOC: HO.HGS 08:03
PROVIDERS: PCP Internal Medicine; Visit Provider Surgery
DX: K82.8 Other specified diseases of gallbladder (principal)
CPT/HCPCS: 99203

== ENCOUNTER → 2025-07-17 08:02 | Outpatient (BNVA) | payer MEDICAID, SELFPAY | PROVIDERS: PCP Internal Medicine; Visit Provider Surgery | DX: K82.8 Other specified diseases of gallbladder (principal) | CPT/HCPCS: 99202 ==

== ENCOUNTER 2025-08-05 10:00 | Outpatient (AMB) | payer MEDICAID, SELFPAY ==
--- NOTE | 2025-08-05 10:07 | A.OFFVIS_ITS ---
Vital Signs 08/05/25 10:11 Height 5 ft 4 in Weight 212 lb 1.355 oz BMI 36.4 BP 134/54 L Blood Pressure Location Rt brachial Position Sitting Pulse 75 Intake Visit Reasons: Follow up GERD 6 weeks Intake Note: Isatu presents to in office follow up for Xray results. CC: Patient states that she was seeing by general surgery and was ordered a CT scan that is already schedule on 09/09. She c/o RUQ abd pain but states that the pain is more tolerable with medications prescribed by Veronika Sims. Corporate Job Titles Required: No Accompanied by: Self / Same As Patient Allergies No Known Allergies (No Known Allergies*) Allergy (Verified 08/05/25 10:13) HPI HPI Follow up GERD 6 weeks: Details: Assessment & Plan (1) Biliary dyskinesia: Comment: 05/2025 HIDA SCAN= 15% EF Code(s): K82.8 - Other specified diseases of gallbladder Category: Medical (2) GERD (gastroesophageal reflux disease): Code(s): K21.9 - Gastro-esophageal reflux disease without esophagitis Category: Medical (3) Constipation: Code(s): K59.00 - Constipation, unspecified Category: Medical (4) Back pain: Code(s): M54.9 - Dorsalgia, unspecified Category: Medical Plan She feels that the Creon helped her symptoms and pain ?a little bit. ? She was unaware that I had referred her to surgery to discuss an elective cholecystectomy given her ongoing right upper quadrant abdominal pain and other symptoms consistent with biliary dyskinesia including gas bloating and loose stools. I made her aware of this. Because she does have a higher body mass will try increasing the Creon to see if this gives her any better relief in the short term. It is also possible that the pain is a combination of factors. Because she said it also gets worse when she does housework we will get an x-ray of her thoracic and lumbar spine to see if this any discernible musculoskeletal component. She is agreeable to this. Return office visit in 6 weeks Orders: Orders XR thoracic spine 2V Today M54.9 - Dorsalgia, unspecified XR lumbar spine 2-3V Today M54.9 - Dorsalgia, unspecified Medications: Changed From etlgma-kqgxkeom-nnbpntc (pork) 36,000-114,000- 180,000 unit (Creon) administer with meals and/or snacks 2 caps PO BID 120 caps 6RF K82.8 - Other specified diseases of gallbladder To hyidzg-hxjpfotz-seceetd (pork) 36,000-114,000- 180,000 unit (Creon) administer with meals and/or snacks 3 caps PO BID 180 caps 6RF K82.8 - Other specified diseases of gallbladder Refilled dicyclomine 20 mg PO QID 120 tabs 3RF 30 days simethicone after meals 180 mg PO QID 120 caps 3RF 30 days bisacodyl (Dulcolax (bisacodyl)) 10 mg (2 x 5 mg) PO BEDTIME 60 tabs 6RF 30 days K59.00 - Constipation, unspecified X-RAY LUMBAR AND THORACIC SPINES FINDINGS: Facet joint hypertrophy at L5-S1 and to a lesser extent L4-5. Multilevel small marginal osteophyte formation and endplate sclerosis and decreased intervertebral disc height pronounced at L4-5 and L5-S1. No acute cortical disruption or gross malalignment. No lytic or blastic lesions. Abundant stool in the large intestine without intestinal obstruction pattern. XR/XR lumbar spine 2-3V IMPRESSION: Multilevel lumbar spondylosis pronounced at L5-S1. FINDINGS: Mild S-shaped curvature of the thoracic spine. Multilevel marginal osteophyte formation, endplate sclerosis and decreased intervertebral disc height throughout the axial skeleton. No acute cortical disruption or gross malalignment. No lytic or blastic lesions. XR/XR thoracic spine 2V IMPRESSION: Scoliosis and spondylosis, mild to moderate. 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, 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 Review of Systems Const Denies fatigue, Denies fever(s), Denies night sweats, Denies poor appetite and Denies weight loss ENT Reports Normal hearing present, Denies dental pain, Denies dysphagia, Denies hearing loss, Denies mouth pain, Denies odynophagia, Denies throat swelling, Denies tongue swelling and Reports other (Dentition adequate) Card Reports no additional complaints Resp Reports no additional complaints GI Details: Reports abdominal pain, Denies melena, Denies bloating, Denies hematochezia, Reports constipation, Denies GI cramping, Denies dysphagia, Denies excessive flatus, Denies early satiety, Reports heartburn, Denies diarrhea, Denies nausea, Denies odynophagia, Denies vomiting and Denies hematemesis Musc Reports back pain and Reports myalgias Skin/Breast Denies pruritus, Denies lesions, Denies rash and Denies jaundice Neuro Reports Normal hearing present and Denies Abnormal speech present Endo Denies fatigue Aller/Immun Denies throat swelling and Denies tongue swelling Physical Exam Vital Signs: Last Vital Signs Pulse 75 08/05/25 10:11 BP 134/54 L 08/05/25 10:11 BMI result Body Mass Index 36.4 Const General: cooperative, no acute distress, well developed and well groomed Nutritional Appearance: well nourished and obese Orientation/consciousness: oriented to person, oriented to place and oriented to time Limitations: No language barrier HEENT Head: Yes normocephalic and Yes atraumatic Eyes General: appearance normal, both eyes and all related structures Pupils: Equal, round and reactive pupils present Neck Neck: Yes normal visual inspection and Yes no lymphadenopathy Thyroid: Thyroid normal Resp Effort & Inspection: normal respiratory effort and able to speak in complete sentences Auscultation: clear to auscultation bilaterally Cardio Rate: regular rate Rhythm: regular rhythm Heart sounds: Normal, physiologic split S2 sound present Peripheral pulses: radial pulses present and posterior tibial pulses present GI Inspection: No distended, Yes Abdominal panniculus present and Yes obesity Palpation (GI): Soft to palpation, nontender, no guarding, not rigid and No hepatosplenomegaly present Percussion: Yes normal to percussion Auscultation: normal bowel sounds Rectal Exam - Female: deferred Skin General skin exam: no rashes or lesions noted, turgor normal, skin not dry, no jaundice, No spider nevi and no striae Rashes: no rashes Nails: normal Neuro General: oriented to person, oriented to place and oriented to time Cranial nerves: Yes Equal, round and reactive pupils present and Yes Normal hearing present Speech: No Abnormal speech present Extrem General: Yes normal to inspection, No clubbing, No cyanosis and No edema Psych Appearance: grossly normal and well kempt Mental Status: mental status grossly normal Speech and movement: Normal speech and movement present Affect: normal affect Attitude: cooperative Thought process: Normal thought process present and not confabulating Thought content: Normal thought content present Insight: Good insight present (Psych) Judgement: Good judgement present (Psych) Results Reviewed Results Reviewed: X-RAY LUMBAR AND THORACIC SPINES FINDINGS: Facet joint hypertrophy at L5-S1 and to a lesser extent L4-5. Multilevel small marginal osteophyte formation and endplate sclerosis and decreased intervertebral disc height pronounced at L4-5 and L5-S1. No acute cortical disruption or gross malalignment. No lytic or blastic lesions. Abundant stool in the large intestine without intestinal obstruction pattern. XR/XR lumbar spine 2-3V IMPRESSION: Multilevel lumbar spondylosis pronounced at L5-S1. FINDINGS: Mild S-shaped curvature of the thoracic spine. Multilevel marginal osteophyte formation, endplate sclerosis and decreased intervertebral disc height throughout the axial skeleton. No acute cortical disruption or gross malalignment. No lytic or blastic lesions. XR/XR thoracic spine 2V IMPRESSION: Scoliosis and spondylosis, mild to moderate. Assessment & Plan Assessment & Plan (1) Constipation: Code(s): K59.00 - Constipation, unspecified Category: Medical (2) Biliary dyskinesia: Comment: 05/2025 HIDA SCAN= 15% EF Code(s): K82.8 - Other specified diseases of gallbladder Category: Medical (3) GERD (gastroesophageal reflux disease): Code(s): K21.9 - Gastro-esophageal reflux disease without esophagitis Category: Medical (4) RUQ abdominal pain: Code(s): R10.11 - Right upper quadrant pain Category: Medical (5) Back pain: Code(s): M54.9 - Dorsalgia, unspecified Category: Medical (6) Thoracic spinal stenosis: Code(s): M48.04 - Spinal stenosis, thoracic region Category: Medical (7) Lumbar stenosis: Code(s): M48.061 - Spinal stenosis, lumbar region without neurogenic claudication Category: Medical Plan Subjective Patient presents for follow-up of abdominal and back pain. Since increasing Creon, pain is still present but less and more tolerable, and she is functioning and working better. She continues dicylomine as needed for pain, simethicone for gas, and bisacodyl for constipation with benefit. She was evaluated by Dr. Paul for gallbladder dysfunction; surgery was discussed as reasonable, with a CAT scan scheduled for September 10 prior to proceeding. She reports loose dentures that make chewing difficult and is avoiding fatty foods as they worsen symptoms. Objective - X-rays reviewed: degenerative changes in the mid-back with osteophyte formation; scoliosis with S-shaped curvature noted. These changes can impinge nerves and contribute to pain. - Prior HIDA scan: very low ejection fraction. Assessment & Plan Thoracic spine degenerative changes with osteophytes and scoliosis: Imaging demonstrates arthritis with osteophyte formation and an S-shaped scoliotic curve in the mid-back, which can contribute to nerve impingement and pain. Symptoms may fluctuate with certain movements or weather changes. - Coordinate with primary care (Terry Travis) to review X-ray results. - Refer to physical therapy as first-line management. - Consider pain management interventions (e.g., injections) if inadequate response to physical therapy. - MRI may be indicated for further characterization if symptoms persist or neurologic features evolve; pursue through primary care for authorization. - Surgery considered a last-resort option. Gallbladder dysfunction with very low ejection fraction on HIDA; symptomatic improvement on Qurian: Surgeon advised that cholecystectomy is reasonable but recommended CAT scan first; CAT scan scheduled 09/10. Patient reports improvement on current regimen and is minimizing dietary fat. - Continue Creon as prescribed. - Maintain low-fat diet; avoid high-fat foods that exacerbate pain. - Proceed with CAT scan on 09/10; I will review results when available. - Continue dicylomine as needed for pain, simethicone for gas, and bisacodyl for constipation. - ER precautions for sudden severe abdominal pain concerning for acute cholecystitis. Follow-up: Return in approximately 8 weeks (October) to review imaging and symptom trajectory. Medications: Refilled dicyclomine 20 mg PO QID 120 tabs 3RF 30 days simethicone after meals 180 mg PO QID 120 caps 3RF 30 days qrmszh-bjdqbvbf-lfbwyrq (pork) 36,000-114,000- 180,000 unit (Creon) administer with meals and/or snacks 3 caps PO BID 180 caps 6RF K82.8 - Other specified diseases of gallbladder famotidine 40 mg PO BID 180 tabs 2RF K21.9 - Gastro-esophageal reflux disease without esophagitis, R13.10 - Dysphagia, unspecified Coding Level of Care Code Est Pt Level 4 (97911) Diagnoses Constipation K59.00 Biliary dyskinesia K82.8 GERD (gastroesophageal reflux disease) K21.9 RUQ abdominal pain R10.11 Back pain M54.9 Thoracic spinal stenosis M48.04 Lumbar stenosis M48.061 Time Spent (min) 35
[2025-08-05 10:11] VITALS: BP 134/54; PULSE 75; BMI 36.4
--- OUTSIDE RECORDS SUMMARY | 2025-08-05 11:15 | XMS_ITS | Clinical Summary ---
Author Organization [employer] Address [address] [facility] [address] [place] [address] Care Team Providers Care Washing Machine Operator Name Role Phone Unavailable Primary Care Provider [...]
--- OUTSIDE RECORDS SUMMARY | 2025-08-05 11:15 | XMS_ITS | Clinical Summary ---
Author Organization [address] [facility] Address [address] [place] [address] Phone Care Team Providers Care Hand Cooper Helper Name Role Phone Yoselyn Ware MD Primary Care Provider [phone] Allergies No known active allergies Medications aspirin [...] the skin every 7 (seven) days. Active ketoconazole (NIZORAL) 2 % cream Apply topically 1 (one) time each day. 100 g 1 4 Active ammonium lactate (AmLactin) 12 % lotion Apply topically if needed for dry skin. 400 g 2 07/23/20 25 Encounters Date Type Department Care Team Description 05/22/2025 2:30 PM EDT Office Visit Orthopedic Surgery [facility] [address] [phone] Valerio Pham DPM Controlled type 2 diabetes with neuropathy ([facility] [place]24, [facility] [place] V28) (Primary Dx); Pain in both feet; Arthritis of both feet; Dermatophytosis, nail; Eccrine poroma of foot, right from Last 3 Months Medical History Medical History Date Comments GERD (gastroesophageal reflux disease) Diabetes mellitus ([facility] [place] V24, [facility] [place] V28) H/O section Social History Tobacco Use [...] 1:45 PM EST Office Visit Orthopedic Surgery [place] [id number] [phone] Valerio Pham DPM [address] [address] Health Maintenance Due Date Last Done Comments [...] to complete this topic Insurance [place] Care Teams Hand Cooper Helper Relationship Specialty Start Date End Date Yoselyn Ware MD [address] [place] [address] [place] [address] PCP - General 05/01/24
== END 2025-08-05 10:52 | disposition home or self-care (01) ==
LOC: HO.HGI 10:00
PROVIDERS: PCP Internal Medicine; Visit Provider Nurse Practitioner
DX: K59.00 Constipation, unspecified (principal); K82.8 Other specified diseases of gallbladder; K21.9 Gastro-esophageal reflux disease without esophagitis; R10.11 Right upper quadrant pain; M54.9 Dorsalgia, unspecified; M48.04 Spinal stenosis, thoracic region; M48.061 Spinal stenosis, lumbar region without neurogenic claudication
CPT/HCPCS: 99214

== ENCOUNTER → 2025-08-05 10:00 | Outpatient (BNVA) | payer MEDICAID, SELFPAY | PROVIDERS: PCP Internal Medicine; Visit Provider Nurse Practitioner | DX: K21.9 Gastro-esophageal reflux disease without esophagitis (principal); M48.061 Spinal stenosis, lumbar region without neurogenic claudication; M48.04 Spinal stenosis, thoracic region; K59.00 Constipation, unspecified; K82.8 Other specified diseases of gallbladder; R10.11 Right upper quadrant pain; M54.9 Dorsalgia, unspecified; R13.10 Dysphagia, unspecified; Z79.899 Other long term (current) drug therapy; Z79.83 Long term (current) use of bisphosphonates | CPT/HCPCS: 99212 ==